=== PATIENT | male | born 1940 | race Caucasian/White ===

== ENCOUNTER → 2019-08-23 09:58 | Outpatient (CLI) | payer MEDICARE, SELFPAY ==
--- NOTE | ~2019-08-23 | XR_ITS ---
EXAMINATION: XR chest 2V 08/23/2019 10:41 INDICATION: Cough PROCEDURE: 2 view chest COMPARISON: No prior studies for comparison. FINDINGS: The lungs are clear. The cardiomediastinal silhouette is within normal limits. There are no pleural effusions. There is no pneumothorax suspected. IMPRESSION: 1: NO ACUTE CARDIOPULMONARY DISEASE. Reviewed, dictated and finalized at location B. OMS EXAMINER
== END ==
PROVIDERS: PCP Family Medicine; Visit Provider Physician Assistant
DX: R05 Cough (principal)
CPT/HCPCS: 71046

== ENCOUNTER 2019-12-09 11:56 | Outpatient (CLI) | payer MEDICARE, SELFPAY ==
[2019-12-09 12:25] LABS: Add Urine Microscopic? NO; Appearance Urine Clear (Clear); Bilirubin Urine Negative (Negative); Blood Urine Negative (Negative); Color Urine Yellow (Yellow); Glucose Urine UA Negative (Negative); Ketones Urine Negative (Negative); Leukocyte Esterase Ur Negative LEU/UL (NEGATIVE); Nitrate Urine Negative (Negative); Protein Urine Negative (Negative); Specific Grav Ur 1.014 (1.001-1.035); Urobilinogen Urine Negative mg/dL (<2.0)
[2019-12-09 12:33] LABS: Hemoglobin A1C 5.7 % (<5.7)
[2019-12-09 12:37] LABS: Alanine Aminotransferase 28 U/L (4-50); Albumin Level 4.1 g/dL (3.5-5.1); Alkaline Phosphatase 46 U/L (38-126); Aspartate Amino Transferase 34 U/L (17-59); Bilirubin,Total 2.1 mg/dL (0.2-1.3); Blood Urea Nitrogen 18 mg/dL (9-20); Calcium 9.2 mg/dL (8.4-10.2); Carbon Dioxide 27 mmol/L (22-30); Chloride 106 mmol/L (98-107); Cholesterol 117 mg/dL (0-200); Estimated Glomerular Filt Rate > 60; Glucose 101 mg/dL (75-110); HDL Direct 25 mg/dL; Potassium 4.4 mmol/L (3.4-5.0); Sodium 138 mmol/L (137-145); Triglycerides 352 mg/dL (<150)
[2019-12-09 12:48] LABS: LDL Cholesterol Direct 57 mg/dL
== END 2019-12-09 11:57 | disposition home or self-care (01) ==
PROVIDERS: PCP Family Medicine; Visit Provider Physician Assistant
DX: E78.2 Mixed hyperlipidemia (principal); R73.01 Impaired fasting glucose; I10 Essential (primary) hypertension
CPT/HCPCS: 36415; 80053; 80061; 81003; 83036

== ENCOUNTER 2020-06-15 13:49 | Outpatient (CLI) | payer MEDICARE, SELFPAY ==
[2020-06-15 14:53] LABS: Alanine Aminotransferase 24 U/L (4-50); Albumin Level 3.8 g/dL (3.5-5.1); Alkaline Phosphatase 49 U/L (38-126); Anion Gap 8 mmol/L (8-16); Aspartate Amino Transferase 32 U/L (17-59); Bilirubin,Total 1.7 mg/dL (0.2-1.3); Blood Urea Nitrogen 18 mg/dL (9-20); Calcium 9.1 mg/dL (8.4-10.2); Carbon Dioxide 23 mmol/L (22-30); Chloride 106 mmol/L (98-107); Estimated Glomerular Filt Rate > 60; Glucose 101 mg/dL (75-110); Potassium 4.1 mmol/L (3.4-5.0); Sodium 137 mmol/L (137-145)
[2020-06-15 15:06] LABS: Hemoglobin A1C 5.4 % (<5.7)
== END 2020-06-15 13:50 | disposition home or self-care (01) ==
PROVIDERS: PCP Family Medicine; Visit Provider Family Medicine
DX: E11.9 Type 2 diabetes mellitus without complications (principal); I10 Essential (primary) hypertension
CPT/HCPCS: 36415; 80053; 83036

== ENCOUNTER 2020-12-10 07:09 | Outpatient (CLI) | payer MEDICARE, SELFPAY ==
[2020-12-10 07:48] LABS: Hematocrit 37.7 % (42.0-52.0); Hemoglobin 12.8 g/dL (14.0-18.0); Mean Corpuscular Hemoglobin 32.7 pg (26-34); Mean Corpuscular Volume 96.4 fl (80-100); Mean Platelet Volume 11.4 fl (7.4-10.4); Platelet Count Result 288 k/mm3 (150-375); Red Blood Count 3.91 M/mm3 (4.6-6.20); Red Cell Distribution Width 14.7 % (11.5-14.5); White Blood Count 8.9 K/mm3 (4.5-10.0)
[2020-12-10 07:51] LABS: Add Urine Microscopic? NO; Appearance Urine Clear (Clear); Bilirubin Urine Negative (Negative); Blood Urine Negative (Negative); Color Urine Yellow (Yellow); Glucose Urine UA Negative (Negative); Ketones Urine Negative (Negative); Leukocyte Esterase Ur Negative LEU/UL (NEGATIVE); Nitrate Urine Negative (Negative); Protein Urine Negative (Negative); Specific Grav Ur 1.016 (1.001-1.035); Urobilinogen Urine Negative mg/dL (<2.0)
[2020-12-10 08:02] LABS: Alanine Aminotransferase 25 U/L (4-50); Albumin Level 4.3 g/dL (3.5-5.1); Alkaline Phosphatase 44 U/L (38-126); Anion Gap 8 mmol/L (8-16); Aspartate Amino Transferase 34 U/L (17-59); Bilirubin,Total 2.3 mg/dL (0.2-1.3); Blood Urea Nitrogen 16 mg/dL (9-20); Calcium 9.6 mg/dL (8.4-10.2); Carbon Dioxide 22 mmol/L (22-30); Chloride 109 mmol/L (98-107); Cholesterol 135 mg/dL (0-200); Estimated Glomerular Filt Rate > 60; Glucose 106 mg/dL (75-110); HDL Direct 35 mg/dL; Potassium 4.7 mmol/L (3.4-5.0); Sodium 139 mmol/L (137-145); Triglycerides 105 mg/dL (<150)
[2020-12-10 08:04] LABS: Hemoglobin A1C 5.3 % (<5.7)
[2020-12-10 08:15] LABS: LDL Cholesterol Direct 65 mg/dL
== END 2020-12-10 07:10 | disposition home or self-care (01) ==
PROVIDERS: PCP Family Medicine; Visit Provider Family Medicine
DX: R73.01 Impaired fasting glucose (principal); E78.2 Mixed hyperlipidemia; R53.83 Other fatigue; Z00.00 Encounter for general adult medical examination without abnormal findings; I10 Essential (primary) hypertension
CPT/HCPCS: 36415; 80053; 80061; 81003; 83036; 84443; 85027

== ENCOUNTER 2020-12-11 10:12 | Outpatient (CLI) | payer MEDICARE, SELFPAY ==
[2020-12-11 11:55] LABS: Iron 98 ug/dL (49-181)
[2020-12-11 12:05] LABS: Percent Iron Saturation 32 % (20-50)
== END 2020-12-11 10:13 | disposition home or self-care (01) ==
LOC: ANHLAB 10:17
PROVIDERS: PCP Family Medicine; Visit Provider Family Medicine
DX: D64.9 Anemia, unspecified (principal)
CPT/HCPCS: 36415; 82728; 83540; 83550

== ENCOUNTER 2021-11-30 07:03 | Outpatient (CLI) | payer MEDICARE, SELFPAY ==
[2021-11-30 07:37] LABS: Hemoglobin 13.9 g/dL (14.0-18.0); Mean Corpuscular HGB Conc 33.9 g/dl (32-36); Mean Corpuscular Hemoglobin 33.1 pg (26-34); Mean Corpuscular Volume 97.6 fl (80-100); Mean Platelet Volume 11.3 fl (7.4-10.4); Platelet Count Result 211 k/mm3 (150-375); Red Cell Distribution Width 15.2 % (11.5-14.5)
[2021-11-30 07:45] LABS: Hemoglobin A1C 5.4 % (<5.7)
[2021-11-30 07:52] LABS: Alanine Aminotransferase 33 U/L (6-50); Albumin Level 4.5 g/dL (3.5-5.1); Alkaline Phosphatase 44 U/L (38-126); Anion Gap 8 mmol/L (8-16); Aspartate Amino Transferase 33 U/L (17-59); Bilirubin,Total 3.7 mg/dL (0.2-1.3); Blood Urea Nitrogen 19 mg/dL (9-20); Carbon Dioxide 22 mmol/L (22-30); Chloride 109 mmol/L (98-107); Cholesterol 141 mg/dL (0-200); Estimated Glomerular Filt Rate > 60; Glucose 107 mg/dL (65-110); HDL Direct 31 mg/dL; Potassium 4.5 mmol/L (3.4-5.0); Sodium 139 mmol/L (137-145); Triglycerides 190 mg/dL (<150)
[2021-11-30 08:00] LABS: Add Urine Microscopic? NO; Appearance Urine Clear (Clear); Bilirubin Urine Negative (Negative); Blood Urine Negative (Negative); Color Urine Yellow (Yellow); Glucose Urine UA Negative (Negative); Ketones Urine Negative (Negative); Leukocyte Esterase Ur Negative LEU/UL (Negative); Nitrate Urine Negative (Negative); Protein Urine Negative (Negative); Specific Grav Ur >= 1.030 (1.001-1.035); Urobilinogen Urine 0.2 mg/dL (<2.0); pH Urine 5.5 (5.0-9.0)
[2021-11-30 08:03] LABS: LDL Cholesterol Direct 67 mg/dL
[2021-11-30 08:22] LABS: Prostate Specific Antigen 4.5 ng/mL (< OR = 4.0)
== END 2021-11-30 07:04 | disposition home or self-care (01) ==
LOC: ANHLAB 07:06
PROVIDERS: PCP Family Medicine; Visit Provider Physician Assistant
DX: E78.2 Mixed hyperlipidemia (principal); I10 Essential (primary) hypertension; R73.01 Impaired fasting glucose; N39.43 Post-void dribbling; R33.9 Retention of urine, unspecified
CPT/HCPCS: 36415; 80053; 80061; 81003; 83036; 84153; 84443; 85027

== ENCOUNTER 2021-12-16 08:10 | Outpatient (CLI) | payer MEDICARE, SELFPAY ==
--- NOTE | ~2021-12-16 | XR_ITS ---
XR lumbar spine min 4V DATE: 12/16/2021 08:46 INDICATION: Back pain, greater on the right TECHNIQUE: AP, lateral, bilateral oblique views, coned lateral lumbosacral view COMPARISON: None FINDINGS: There is osteopenia. Status post L3 and L4 laminectomy. There is levoscoliosis of the lumbar spine. There is prominent degenerative change at the apophyseal joints of the lumbar spine with associated m ild grade 1 anterolisthesis at L4-5 and L5-S1. There is degenerative disc disease throughout the lumbar spine, severe at L1 to, moderately prominent L3-4 and L4-5 and severe at L5-S1. There appears to be fusion at the L2-3 intervertebral disc space. 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 The sacroiliac joints are intact. IMPRESSION: Osteopenia Moderate levoscoliosis of the lumbar spine Status post L3 and L4 laminectomy Prominent degenerative change at the apophyseal joints with associated grade 1 anterolisthesis at L4- 5 and L5-S1 Moderately severe to severe degenerative disease of the lumbar and lumbosacral spine Fusion of the L2-3 intervertebral disc space Reviewed, dictated and finalized at location B. IMPRESSION: Osteopenia Moderate levoscoliosis of the lumbar spine Status post L3 and L4 laminectomy Prominent degenerative change at the apophyseal joints with associated grade 1 anterolisthesis at L4-5 and L5-S1 Moderately severe to severe degenerative disease of the lumbar and lumbosacral spine Fusion of the L2-3 intervertebral disc space
== END 2021-12-16 08:11 | disposition home or self-care (01) ==
PROVIDERS: PCP Family Medicine; Visit Provider Physician Assistant
DX: M47.816 Spondylosis without myelopathy or radiculopathy, lumbar region (principal); M41.9 Scoliosis, unspecified; M85.88 Other specified disorders of bone density and structure, other site; M47.817 Spondylosis without myelopathy or radiculopathy, lumbosacral region
CPT/HCPCS: 72110

== ENCOUNTER 2021-12-23 06:43 | Outpatient (CLI) | payer MEDICARE, SELFPAY ==
--- NOTE | ~2021-12-23 | MR_ITS ---
EXAMINATION: MR lumbar spine wo con DATE: 12/23/2021 07:16 INDICATION: Lumbar facet osteoarthritis presenting with lower back pain TECHNIQUE: Magnetic resonance imaging (MRI) of the lumbar spine was performed without intravenous con trast. Sequences included sagittal T2-weighted FSE, sagittal T2-weighted FS FSE, sagittal T1-weighted FSE, and axial T2-weighted FSE. COMPARISON: None FINDINGS: 25 degrees lumbar levoscoliosis. 3 mm retrolisthesis L1 on L2. There is anterior fusion at L2-L3 with approximately 30% right-sided loss of the combined L2-L3 vertebral body height relative to the left side. There is also fusion across the right L2-L3 facet joints. There is also a chronic T12 compressi on fracture with 20% left-sided vertebral body height loss. Postoperative change of prior L2-L4 nina ectomies. Mild fibrovascular and fibrofatty degenerative endplate changes at a few levels. Marrow sig nal is otherwise normal. Severe disc height loss at L5-S1. Moderate right-sided predominant disc heig ht loss at L1-L2 and moderate left-sided predominant disc height loss at L4-L5. Mild disc height loss at L3-L4. The conus medullaris terminates at L2-L3. There is normal signal in the caudal spinal cord . Ankylosis across the bilateral sacroiliac joints. Postoperative scarring in the posterior paraspina l musculature of the mid to lower lumbar spine. The following disc levels are specifically discussed: T12-L1: Annular fissure and small central disc protrusion. There is moderate bilateral facet joint os teoarthritis. There is mild left neural foraminal stenosis. There is normal central canal stenosis. L1-L2: Annular fissure and disc extrusion extending from foraminal zone to foraminal zone with disc m aterial extending up to 5 mm cephalad and caudal to the level of the endplates. There is hypertrophy of the ligamentum flavum. There is mild to moderate left and severe right facet joint osteoarthritis. There is moderate to severe left and severe right neural foraminal stenosis. There is severe central canal stenosis. L2-L3: Moderate hypertrophic change along the level of the fused disc space. There is fusion with pro minent hypertrophic change at the right facet joint. Mild hypertrophic change at the left facet joint with appearance suggestive but not definitive for additional fusion. There is moderate left and mode rate to severe right neural foraminal stenosis. There is no central canal stenosis with posterior dec ompression. There is however mild central canal stenosis at the level of the midportion of the L3 holger tebral body. L3-L4: Annular fissure and disc extrusion extending from foraminal zone to foraminal zone with disc m aterial extending couple millimeters cephalad and caudal to the level of the endplates. There is dov re bilateral facet osteoarthritis with more prominent hypertrophic change on the right. There is dov re bilateral neural foraminal stenosis. There is mild central canal stenosis with posterior decompres taty. L4-L5: Disc is bulging with superimposed annular fissure and small central disc extrusion with disc m aterial extending up to 1.3 similar cephalad to the level of the inferior endplate of L4. There is se asif bilateral facet joint osteoarthritis. There is moderate bilateral neural foraminal stenosis. The re is no central canal stenosis at the level of the disc space but mild central canal stenosis at the level of the midportion of the L4 vertebral body. L5-S1: Annular fissure and disc extrusion greatest in the central zone with disc material extending u p to 5 mm cephalad to the level of the inferior endplate of L5. There is severe bilateral facet joint osteoarthritis. There is moderate right and severe left neural foraminal stenosis. There is mild yuliana tral canal stenosis. IMPRESSION: 1. 25 degrees lumbar levoscoliosis with multilevel severe spondylosis stable for severe centra
== END 2021-12-23 06:44 | disposition home or self-care (01) ==
PROVIDERS: PCP Family Medicine; Visit Provider Physician Assistant
DX: M47.816 Spondylosis without myelopathy or radiculopathy, lumbar region (principal); Z98.1 Arthrodesis status
CPT/HCPCS: 72148

== ENCOUNTER 2022-03-04 08:16 | Emergency (ER) | payer MEDICARE, SELFPAY ==
[2022-03-04 08:29] VITALS: BP 138/50; PULSE 64; RESP 16; TEMP 35.8; O2SAT 99
--- NOTE | 2022-03-04 08:45 | ED.EXTPRO ---
HPI - Extremity Problem General Chief complaint: Extremity Problem,Nontraumatic Stated complaint: left ankle pain Time Seen by Provider: 03/04/22 08:57 Source: patient and RN notes reviewed Mode of arrival: ambulatory Limitations: no limitations History of Present Illness HPI Narrative: 82-year-old male presents concern for dorsal left foot and ankle pain. He reports a cramping sensation where the ankle meets the foot. He reports it started approximately 2 days ago. He denies any injury or trauma. He denies redness, swelling, warmth. He reports it is very certain position the pain is relieved, but when he dorsiflexes or plantar flexes the foot it causes pain. He denies rash or open skin. He reports it is very superficially sensitive to touch. MD Complaint: extremity pain Related Data Home Medications Medication Instructions Recorded Confirmed aspirin 81 mg tablet,delayed 81 mg PO DAILY 08/23/19 03/04/22 release (Adult Low Dose Aspirin) chlorzoxazone 500 mg tablet 500 mg PO DAILY 03/04/22 03/04/22 Allergies Allergy/AdvReac Type Severity Reaction Status Date / Time No Known Allergies Allergy Mild Verified 11/29/21 08:57 Review of Systems Review of Systems: CONSTITUTIONAL: Denies malaise, chills, sweats, or fever. CARDIOVASCULAR: Denies chest pain, palpitations, or edema. RESPIRATORY: Denies cough or dyspnea. SKIN: Denies rash or itching, bruising, redness, swelling. MUSCULOSKELETAL: Reports left foot pain NEUROLOGIC: Denies numbness, weakness All systems reviewed & are unremarkable except as noted in HPI and below PMFSH Past Medical History Medical History Essential hypertension IFG (impaired fasting glucose) Mixed hyperlipidemia Wellness examination Family History Family History Mother Family history of malignant neoplasm of stomach Family history of heart disease in male family member before age 55 Father Family history of lung cancer Social History Social History Smoking status: Never smoker Second hand tobacco smoke exposure: No Alcohol intake: current Drinks per week: 2 Substance use: never Substance use type: does not use Gender identity (if verbalized by the patient): Male Sexual Orientation (if Verbalized by the Patient): Straight or Heterosexual Comments At time of signature, agree with nursing past medical, surgical, social and family history. There is no relevant family history pertinent to the presenting complaint Exam Narrative: GENERAL: Well-appearing, well-nourished, and in no acute distress. HEAD: Normocephalic, atraumatic. EYES: PERRLA, conjunctivae clear NECK: Supple. CHEST: Speaks in full sentences. No respiratory distress. HEART: Regular rate and rhythm. Normal and equal peripheral pulses. EXTREMITIES: Left foot, ankle, digits have normal strength and sensation, grossly normal range of motion. No edema or ecchymosis. 5/5 strength with ankle and digit flexion and extension. Increased sensation and tenderness to light touch to the dorsal foot at the base of the ankle and pain. No open wounds, no skin tenting, no devitalized tissue or atrophy, no trophic changes, no obvious deformity, alignment normal, nearby joints and structures intact. Distal pulses palpable and equal bilaterally, skin warm, dry, pink. Capillary refill less than 3 seconds. SKIN: Warm, dry, no rash. NEURO: Alert and oriented x3. PSYCH: Normal mood and affect Course Course Emergency Course: Pain appears to be very superficial, no skeletal pain suspected. There is no redness, warmth. Very sensitive to light touch to the dorsal foot. Advised patient to rest, ice, use diclofenac cream and follow-up with podiatry. Patient is aware of diagnosis, understands and agrees to treatment plan. Anticipatory guidance given. Patient agrees to foll
== END 2022-03-04 09:17 | disposition home or self-care (01) ==
PROVIDERS: Emergency Provider Nurse Practitioner; PCP Family Medicine
DX: M79.672 Pain in left foot (principal); I10 Essential (primary) hypertension; E78.2 Mixed hyperlipidemia; R73.01 Impaired fasting glucose
CPT/HCPCS: 99213; G0463

== ENCOUNTER 2022-06-06 09:18 | Outpatient (CLI) | payer MEDICARE, SELFPAY ==
[2022-06-06 10:08] LABS: Alanine Aminotransferase 37 U/L (6-50); Albumin Level 4.3 g/dL (3.5-5.1); Alkaline Phosphatase 43 U/L (38-126); Anion Gap 7 mmol/L (8-16); Aspartate Amino Transferase 40 U/L (17-59); Bilirubin,Total 2.5 mg/dL (0.2-1.3); Blood Urea Nitrogen 17 mg/dL (9-20); Calcium 9.1 mg/dL (8.4-10.2); Carbon Dioxide 25 mmol/L (22-30); Chloride 107 mmol/L (98-107); Estimated Glomerular Filt Rate > 60; Glucose 87 mg/dL (65-110); Potassium 4.7 mmol/L (3.4-5.0); Sodium 139 mmol/L (137-145)
[2022-06-06 10:20] LABS: Hemoglobin A1C 5.6 % (<5.7)
[2022-06-06 10:36] LABS: Prostate Specific Antigen 4.8 ng/mL (< OR = 4.0)
== END 2022-06-06 09:19 | disposition home or self-care (01) ==
LOC: ANHLAB 09:20
PROVIDERS: PCP Family Medicine; Visit Provider Family Medicine
DX: R97.20 Elevated prostate specific antigen [PSA] (principal); R73.01 Impaired fasting glucose; I10 Essential (primary) hypertension
CPT/HCPCS: 36415; 80053; 83036; 84153

== ENCOUNTER 2022-12-09 07:14 | Outpatient (CLI) | payer MEDICARE, SELFPAY ==
[2022-12-09 07:51] LABS: Hematocrit 38.1 % (42.0-52.0); Mean Corpuscular HGB Conc 34.1 g/dl (32-36); Mean Corpuscular Hemoglobin 33.2 pg (26-34); Mean Corpuscular Volume 97.4 fl (80-100); Mean Platelet Volume 11.7 fl (7.4-10.4); Platelet Count Result 220 k/mm3 (150-375); Red Blood Count 3.91 M/mm3 (4.6-6.20); Red Cell Distribution Width 15.3 % (11.5-14.5); White Blood Count 10.9 K/mm3 (4.5-10.0)
[2022-12-09 07:56] LABS: Appearance Urine Clear (Clear); Bacteria Urine None Seen /hpf; Bilirubin Urine Negative (Negative); Blood Urine Negative (Negative); Color Urine Dark Yellow (Yellow); Glucose Urine UA Negative (Negative); Ketones Urine Trace mg/dL (Negative); Leukocyte Esterase Ur Trace LEU/UL (NEGATIVE); Nitrate Urine Negative (Negative); Non Pathogenic Casts 0-2; Protein Urine Trace mg/dL (Negative); RBC Urine 0-2 /hpf (0-2); Specific Grav Ur 1.025 (1.001-1.035); Squamous Epithelial Cell Urine None seen /hpf (Few); WBC Urine 0-5 /hpf (0-3)
[2022-12-09 07:59] LABS: Add Urine Microscopic? YES
[2022-12-09 08:30] LABS: Alanine Aminotransferase 30 U/L (6-50); Albumin Level 4.6 g/dL (3.5-5.1); Alkaline Phosphatase 52 U/L (38-126); Anion Gap 6 mmol/L (8-16); Aspartate Amino Transferase 37 U/L (17-59); Bilirubin,Total 5.8 mg/dL (0.2-1.3); Blood Urea Nitrogen 21 mg/dL (9-20); Calcium 9.1 mg/dL (8.4-10.2); Carbon Dioxide 26 mmol/L (22-30); Chloride 105 mmol/L (98-107); Cholesterol 129 mg/dL (0-200); Estimated Glomerular Filt Rate > 60; Glucose 111 mg/dL (65-110); HDL Direct 33 mg/dL; Potassium 4.4 mmol/L (3.4-5.0); Sodium 137 mmol/L (137-145); Triglycerides 127 mg/dL (<150)
[2022-12-09 08:41] LABS: LDL Cholesterol Direct 66 mg/dL
[2022-12-09 09:11] LABS: Hemoglobin A1C 5.3 % (<5.7)
== END 2022-12-09 07:15 | disposition home or self-care (01) ==
PROVIDERS: PCP Family Medicine; Visit Provider Family Medicine
DX: R73.01 Impaired fasting glucose (principal); I10 Essential (primary) hypertension
CPT/HCPCS: 36415; 80053; 80061; 81001; 83036; 84443; 85027

== ENCOUNTER 2023-01-06 07:00 | Outpatient (CLI) | payer MEDICARE, SELFPAY ==
[2023-01-06 08:37] LABS: Alanine Aminotransferase 31 U/L (6-50); Albumin Level 4.1 g/dL (3.5-5.1); Alkaline Phosphatase 41 U/L (38-126); Aspartate Amino Transferase 36 U/L (17-59); Bilirubin,Total 2.7 mg/dL (0.2-1.3)
== END 2023-01-06 07:01 | disposition home or self-care (01) ==
PROVIDERS: PCP Family Medicine; Visit Provider Family Medicine
DX: R17 Unspecified jaundice (principal)
CPT/HCPCS: 36415; 80076

== ENCOUNTER 2023-02-22 06:42 | Outpatient (CLI) | payer MEDICARE, SELFPAY ==
--- NOTE | ~2023-02-22 | MR_ITS ---
EXAMINATION: MR lumbar spine wo con DATE: 02/22/2023 07:32 INDICATION: Radiculopathy, lumbar region. Right-sided buttock pain. TECHNIQUE: Magnetic resonance imaging (MRI) of the lumbar spine was performed without intravenous con trast. Sequences included sagittal T2-weighted FSE, sagittal T2-weighted FS FSE, sagittal T1-weighted FSE, and axial T2-weighted FSE. COMPARISON: Lumbar spine MRI 12/23/2021 FINDINGS: There is 32 degrees levoscoliosis of lumbar spine. There is 4 mm retrolisthesis of L1 on L2 and 3 mm anterolisthesis of L5 on S1. There is a chronic compression fracture of T12 with 1/5 loss o f height. There is severely decreased disc height at L1-L2. There is interbody fusion at L2-L3. There is mildly decreased disc height at L3-L4 and severely decreased disc height at L4-L5 and L5-S1. The distal spinal cord signal intensity is normal. The conus medullaris is at L1-L2. The following disc l evels are specifically discussed: L1-L2: The disc is bulging with superimposed central extrusion. There is severe right and moderate le ft facet joint osteoarthritis. There is severe right and moderate left neural foraminal stenosis. The re is severe central canal stenosis. L2-L3: There is ankylosis of the facet joints with moderate right and mild left hypertrophy. There is moderate right and mild left neural foraminal stenosis. There is mild central canal stenosis with po sterior decompression. L3-L4: The disc is bulging and has an annular fissure. There is severe bilateral facet joint osteoart hritis. There is severe bilateral neural foraminal stenosis. There is mild central canal stenosis. L4-L5: The disc is bulging with superimposed central extrusion. There is severe bilateral facet joint osteoarthritis. There is moderate right and mild left neural foraminal stenosis. There is mild centr al canal stenosis with posterior decompression. L5-S1: The disc is bulging. There is severe bilateral facet joint osteoarthritis. There is mild right and moderate left neural foraminal stenosis. There is mild central canal stenosis. IMPRESSION: 1. Severe lumbar spondylosis, stable from 12/23/2021. 2. Lumbar levoscoliosis. Reviewed, dictated and finalized at location A.
== END 2023-02-22 06:43 | disposition home or self-care (01) ==
PROVIDERS: PCP Family Medicine; Visit Provider Family Medicine
DX: M43.06 Spondylolysis, lumbar region (principal); M41.86 Other forms of scoliosis, lumbar region
CPT/HCPCS: 72148

== ENCOUNTER 2023-06-20 10:58 | Outpatient (CLI) | payer MEDICARE, SELFPAY ==
--- NOTE | ~2023-06-20 | XR_ITS ---
EXAM: XR abdomen/kub 1V DATE: 06/20/2023 11:29 HISTORY: SEVERE CRAMPING, PAIN, CONSTIPATION . COMPARISON: X-ray pelvis 05/01/2013 x-ray lumbar spine 12/16/2021. FINDINGS: Clear lung bases. Normal bowel gas pattern. No organomegaly. Teardrop shaped 4.6 cm calcif ication projecting over the right lower abdomen, outside of the expected location of the renal collec ting system. Lumbar scoliosis with degenerative disc disease. Bilateral hip osteoarthritis. Pelvic ph leboliths. IMPRESSION: No radiographic evidence of obstruction or ileus. Corticated ossific fragment lateral and superior to the right hip, possible trochanteric avulsion. Co rrelate with history of trauma and hip pain. 4.6 cm calcification over the right lower abdomen of uncertain etiology or clinical significance. Pos sible soft tissue calcification versus intraluminal bowel content. Consider CT of the abdomen and pelvis for further evaluation. Reviewed, dictated and finalized at location K. OPEDIC DENTIST IMPRESSION: No radiographic evidence of obstruction or ileus. Corticated ossific fragment lateral and superior to the right hip, possible tro chanteric avulsion. Correlate with history of trauma and hip pain. 4.6 cm calcification over the right lower abdomen of uncertain etiology or clin ical significance. Possible soft tissue calcification versus intraluminal bowel content. Consider CT of the abdomen and pelvis for further evaluation.
[2023-06-20 11:32] LABS: Appearance Urine Clear (Clear); Bilirubin Urine 1+ (Negative); Blood Urine Negative (Negative); Color Urine Dark Yellow (Yellow); Glucose Urine UA Negative (Negative); Ketones Urine Trace mg/dL (Negative); Leukocyte Esterase Ur Negative LEU/UL (Negative); Nitrate Urine Negative (Negative); Protein Urine Negative (Negative); Specific Grav Ur 1.024 (1.001-1.035); pH Urine 5.5 (5.0-9.0)
[2023-06-20 11:33] LABS: Add Urine Microscopic? NO
[2023-06-20 11:36] LABS: Basophils Absolute Auto 0.1 K/mm3 (0.0-0.1); Basophils Percent Auto 0.5 % (0.2-1.2); Eosinophils Absolute Auto 0.8 K/mm3 (0-0.3); Eosinophils Percent Auto 7.8 % (0-4.4); Hematocrit 39.3 % (42.0-52.0); Immature Granulocyte Absolute 0.09 K/mm3 (0.00-0.031); Immature Granulocyte Percent A 0.8 % (0-0.5); Lymphocytes Absolute Auto 2.52 K/mm3 (0.9-3.2); Lymphocytes Percent Auto 23.6 % (18.3-44.2); Mean Corpuscular HGB Conc 33.1 g/dl (32-36); Mean Corpuscular Hemoglobin 31.9 pg (26-34); Mean Corpuscular Volume 96.6 fl (80-100); Mean Platelet Volume 11.2 fl (7.4-10.4); Monocytes Percent Auto 9.7 % (2.6-8.5); Neutrophils Absolute Auto 6.2 K/mm3 (1.3-6.7); Neutrophils Percent Auto 57.6 % (45.5-73.1); Platelet Count Result 296 k/mm3 (150-375); Red Blood Count 4.07 M/mm3 (4.6-6.20); Red Cell Distribution Width 15.9 % (11.5-14.5); White Blood Count 10.7 K/mm3 (4.5-10.0)
[2023-06-20 11:45] LABS: Alanine Aminotransferase 20 U/L (6-50); Albumin Level 3.9 g/dL (3.5-5.1); Alkaline Phosphatase 46 U/L (38-126); Amylase 62 U/L (30-110); Anion Gap 9 mmol/L (8-16); Aspartate Amino Transferase 32 U/L (17-59); Bilirubin,Total 4.2 mg/dL (0.2-1.3); Blood Urea Nitrogen 19 mg/dL (9-20); Calcium 8.9 mg/dL (8.4-10.2); Carbon Dioxide 24 mmol/L (22-30); Chloride 103 mmol/L (98-107); Estimated Glomerular Filt Rate > 60; Glucose 89 mg/dL (65-110); Lipase 59 U/L (23-300); Potassium 4.4 mmol/L (3.4-5.0); Sodium 136 mmol/L (137-145)
== END 2023-06-20 10:59 | disposition home or self-care (01) ==
PROVIDERS: PCP Family Medicine; Visit Provider Family Medicine
DX: N39.0 Urinary tract infection, site not specified (principal); M61.451 Other calcification of muscle, right thigh; I10 Essential (primary) hypertension
CPT/HCPCS: 36415; 74018; 80053; 81003; 82150; 83690; 85025

== ENCOUNTER 2023-07-03 14:28 | Outpatient (CLI) | payer MEDICARE, SELFPAY ==
--- NOTE | ~2023-07-03 | CT_ITS ---
EXAMINATION: CT abdomen pelvis wo con DATE: 07/03/2023 14:56 INDICATION: Right lower quadrant abdominal pain. Frequent urination. TECHNIQUE: Computed tomography (CT) of the abdomen and pelvis was performed without intravenous contr ast. Automated exposure control and iterative reconstruction technique were employed. Exam dose: 499 .57 mGy-cm total exam DLP. COMPARISON: None. FINDINGS: There is minimal bilateral dependent lower lobe atelectasis. Normal heart size. No pericardial or pleural effusion. The liver, gallbladder, bile ducts, pancreas, pancreatic duct, spleen, adrenal glands are unremarkabl e. No renal mass lesion or urinary tract calculus or hydroureteronephrosis. There is prostate enlargement. The urinary bladder has diffuse mild bladder wall thickening, likely d ue to the prostatomegaly. There is some prostate calcification. There is atherosclerotic calcification of the abdominal aorta and calcification at the origins of the celiac, superior mesenteric and renal arteries. No abdominal aortic aneurysm. No intraperitoneal or retroperitoneal or pelvic mass lesion or adenopathy or ascites is detected. No evidence of appendicitis. There is a prominent amount of fecal material in the colon but no bowel obstruction, bowel wall thickening, pneumatosis or intraperitoneal free air is noted. There is fusion at L2-3 vertebral bodies. There is severe degenerative disc disease at L1-2, moderate degenerative disease at L3-4 and severe degenerative disease at L4-5 and L5-S1. There is severe dege nerative change at the apophyseal joints of the lumbar spine. There is mild anterior wedging and prominent cupping of the superior vertebral endplate of T12 consis tent with old compression fracture. There is diffuse idiopathic skeletal hyperostosis of the thoracic spine. IMPRESSION: No evidence of appendicitis Prominent amount of fecal material in the colon; no bowel obstruction Prostate enlargement Extensive degenerative changes of the thoracic and lumbar spine Mild likely chronic compression fracture deformity of T12 Reviewed, dictated and finalized at Location A. Reviewed, dictated and finalized at location B. OARD SPECIALIST
== END 2023-07-03 14:29 | disposition home or self-care (01) ==
PROVIDERS: PCP Family Medicine; Visit Provider Family Medicine
DX: N40.0 Benign prostatic hyperplasia without lower urinary tract symptoms (principal); M47.894 Other spondylosis, thoracic region; M47.896 Other spondylosis, lumbar region
CPT/HCPCS: 74176

== ENCOUNTER 2023-07-19 07:30 | Outpatient (CLI) | payer MEDICARE, SELFPAY ==
--- NOTE | ~2023-07-19 | MR_ITS ---
MRI of the thoracic spine Clinical History: Radiculopathy Technique: Axial T2-weighted and gradient images, and sagittal T1-weighted, T2-weighted, and STIR tamar ges were acquired. Findings: There is no fracture or sublocation of the thoracic spine. Vertebral bodies maintain normal height and alignment. No suspicious bone marrow signal abnormality seen. No significant disc bulge or herniation identified. There is facet arthropathy resulting in minimal c anal stenosis at the T11-T12 level. No other canal stenosis or cord compression. Paravertebral soft tissues are unremarkable. Impression: Facet arthropathy at T11-T12, resulting in minimal canal stenosis. Reviewed, dictated and finalized at location . MANAGERS Impression: Facet arthropathy at T11-T12, resulting in minimal canal stenosis.
== END 2023-07-19 07:31 | disposition home or self-care (01) ==
PROVIDERS: PCP Family Medicine; Visit Provider Nurse Practitioner Family
DX: M47.814 Spondylosis without myelopathy or radiculopathy, thoracic region (principal)
CPT/HCPCS: 72146

== ENCOUNTER 2023-09-19 12:05 | Outpatient (CLI) | payer MEDICARE, SELFPAY ==
--- NOTE | 2023-09-19 | ECG_ITS ---
Measurements Intervals [place] Rate: 55 P: 57 RI: 153 QRS: 0 QRSD: 102 T: 9 QT: 387 QTc: 373 Interpretive Statements SINUS BRADYCARDIA NO PREVIOUS ECG AVAILABLE FOR COMPARISON Electronically Signed On 09-19-2023 14:53:49 CDT by Isaias Woods M.D.
[2023-09-19 12:35] LABS: Basophils Absolute Auto 0.1 K/mm3 (0.0-0.1); Basophils Percent Auto 0.6 % (0.2-1.2); Eosinophils Absolute Auto 0.3 K/mm3 (0-0.3); Eosinophils Percent Auto 3.2 % (0-4.4); Hematocrit 36.7 % (42.0-52.0); Hemoglobin 12.3 g/dL (14.0-18.0); Immature Granulocyte Absolute 0.07 K/mm3 (0.00-0.031); Immature Granulocyte Percent A 0.8 % (0-0.5); Lymphocytes Absolute Auto 2.46 K/mm3 (0.9-3.2); Lymphocytes Percent Auto 27.5 % (18.3-44.2); Mean Corpuscular HGB Conc 33.5 g/dl (32-36); Mean Corpuscular Hemoglobin 31.8 pg (26-34); Mean Corpuscular Volume 94.8 fl (80-100); Mean Platelet Volume 11.3 fl (7.4-10.4); Monocytes Absolute Auto 0.9 K/mm3 (0.1-0.6); Monocytes Percent Auto 10.4 % (2.6-8.5); Neutrophils Absolute Auto 5.1 K/mm3 (1.3-6.7); Neutrophils Percent Auto 57.5 % (45.5-73.1); Platelet Count Result 253 k/mm3 (150-375); Red Blood Count 3.87 M/mm3 (4.6-6.20); Red Cell Distribution Width 16.5 % (11.5-14.5); White Blood Count 8.9 K/mm3 (4.5-10.0)
[2023-09-19 12:44] LABS: Appearance Urine Clear (Clear); Bilirubin Urine Negative (Negative); Blood Urine Negative (Negative); Color Urine Yellow (Yellow); Glucose Urine UA Negative (Negative); Ketones Urine Negative (Negative); Leukocyte Esterase Ur Negative LEU/UL (Negative); Nitrate Urine Negative (Negative); Protein Urine Negative (Negative)
[2023-09-19 12:47] LABS: Alanine Aminotransferase 16 U/L (6-50); Alkaline Phosphatase 46 U/L (38-126); Anion Gap 6 mmol/L (4-12); Aspartate Amino Transferase 25 U/L (17-59); Blood Urea Nitrogen 14 mg/dL (9-20); CRP < 0.5 mg/dL (<1.0); Calcium 9.5 mg/dL (8.4-10.2); Carbon Dioxide 24 mmol/L (22-30); Chloride 107 mmol/L (98-107); Estimated Glomerular Filt Rate > 60; Glucose 93 mg/dL (65-110); Potassium 4.3 mmol/L (3.4-5.0); Sodium 137 mmol/L (137-145)
[2023-09-19 13:14] LABS: Erythrocyte Sedimentation Rate 22 mm/hr (0-20)
[2023-09-19 13:16] LABS: Add Urine Microscopic? NO
== END 2023-09-19 12:06 | disposition home or self-care (01) ==
PROVIDERS: PCP Family Medicine; Visit Provider Nurse Practitioner Family
DX: Z01.818 Encounter for other preprocedural examination (principal)
CPT/HCPCS: 36415; 80053; 81003; 85025; 85652; 86140; 93005

== ENCOUNTER 2023-11-06 08:20 | Outpatient (CLI) | payer MEDICARE, SELFPAY ==
--- NOTE | ~2023-11-06 | XR_ITS ---
AP and lateral views of the right hip Clinical history: Pain Findings: No acute fracture or dislocation is seen. Osseous alignment is anatomic. The right hip join t is preserved. Soft tissues are unremarkable. Impression: No significant abnormality is seen. Reviewed, dictated and finalized at location . Impression: No significant abnormality is seen.
== END 2023-11-06 08:21 | disposition home or self-care (01) ==
PROVIDERS: PCP Family Medicine; Visit Provider Nurse Practitioner Family
DX: M25.551 Pain in right hip (principal)
CPT/HCPCS: 73502

== ENCOUNTER 2023-11-15 08:19 | Emergency (ER) | payer MEDICARE, SELFPAY ==
--- NOTE | ~2023-11-15 | CT_ITS ---
EXAMINATION: CT abdomen pelvis w con DATE: 11/15/2023 09:36 INDICATION: Constipation. Diarrhea. TECHNIQUE: Computed tomography (CT) of the abdomen and pelvis was performed with 100 mL Omnipaque 350 intravenous contrast. Automated exposure control and iterative reconstruction technique were employe d. The dose-length product was 534.99 mGy-cm. COMPARISON: CT abdomen pelvis 07/03/2023 FINDINGS: The visualized portions of the lung bases demonstrate mild atelectasis and mild chronic int erstitial lung disease. Again seen is a 5 mm nodule in right middle lobe, likely benign. No pleural e ffusion. The heart size is normal. There are coronary artery calcifications. No pericardial effusion. Epidural electrodes are noted. Calcifications in the liver are consistent with old granulomatous dis ease. The gallbladder, spleen, pancreas, and adrenal glands are normal. There is cortical thinning of the kidneys. There is calcified atherosclerosis of the aorta and many of the other arteries. The pro state is moderately enlarged. There is liquid stool in the colon correlating with the symptom of diar bobo. The appendix is dilated to 14 mm with wall calcifications. There are no pathologically enlarged lymph nodes. There is no free intraperitoneal fluid. There is lumbar levoscoliosis and severe spondy losis. There is a chronic compression fracture of T12. There are bridging endplate osteophytes at mul tiple levels in the thoracic spine, consistent with diffuse idiopathic skeletal hyperostosis (DISH). IMPRESSION: 1. 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 Reviewed, dictated and finalized at location A.
[2023-11-15 08:32] VITALS: BP 150/67; PULSE 79; RESP 19; TEMP 36.5; O2SAT 99
[2023-11-15 08:41] VITALS: RESP 17; O2SAT 99
[2023-11-15 09:05] LABS: Basophils Percent Auto 0.3 % (0.2-1.2); Eosinophils Absolute Auto 0.3 K/mm3 (0-0.3); Eosinophils Percent Auto 2.2 % (0-4.4); Hemoglobin 12.6 g/dL (14.0-18.0); Immature Granulocyte Absolute 1.29 K/mm3 (0.00-0.031); Immature Granulocyte Percent A 8.4 % (0-0.5); Lymphocytes Absolute Auto 2.57 K/mm3 (0.9-3.2); Lymphocytes Percent Auto 16.8 % (18.3-44.2); Mean Corpuscular HGB Conc 33.2 g/dl (32-36); Mean Corpuscular Hemoglobin 31.7 pg (26-34); Mean Corpuscular Volume 95.7 fl (80-100); Mean Platelet Volume 10.5 fl (7.4-10.4); Monocytes Absolute Auto 1.3 K/mm3 (0.1-0.6); Monocytes Percent Auto 8.3 % (2.6-8.5); Neutrophils Absolute Auto 9.8 K/mm3 (1.3-6.7); Nucleated Red Blood Cells Perc 0.1 % (0.0-0.2); Platelet Count Result 448 k/mm3 (150-375); Red Blood Count 3.97 M/mm3 (4.6-6.20); Red Cell Distribution Width 17.4 % (11.5-14.5); White Blood Count 15.3 K/mm3 (4.5-10.0)
--- NOTE | 2023-11-15 09:08 | ED.GENADULT ---
HPI - General Adult General Chief complaint: Unspecified Stated complaint: constipated Time Seen by Provider: 11/15/23 09:07 Source: patient and family (son) Mode of arrival: ambulatory Limitations: no limitations History of Present Illness HPI narrative: 83-year-old male presents with complaint of 2 months of constipation ( infrequent bowel movements and requiring straining). he saw his primary care physician for this prescribed laxatives Which she has been using approximately 1 week. He has also been using stool softeners an tried Maalox. He has since had loose diarrheal stools since Monday. He says they are like yellow slime. He denies any blood. His last bowel movement was this morning and the same. He continues to pass flatus. No associated abdominal pain. He is not on opiates chronically. He has also noted pain with urination and increased frequency of urination with decreased urine output however. He denies any nausea, or vomiting. He did have a fever 1 week ago but took Advil and this resolved. No prior abdominal surgeries. No longstanding GI issues and has never seen a trust manager assistant. No prior colonoscopy or EGD. Related Data Home Medications Medication Instructions Recorded Confirmed aspirin 81 mg tablet,delayed 81 mg PO DAILY 08/23/19 08/15/23 release (Adult Low Dose Aspirin) Allergies Allergy/AdvReac Type Severity Reaction Status Date / Time No Known Allergies Allergy Mild Verified 11/10/23 15:19 [facility] Past Medical History Medical History BPH w urinary obs/LUTS Essential hypertension IFG (impaired fasting glucose) Mixed hyperlipidemia Wellness examination Family History Family History Mother Family history of malignant neoplasm of stomach Family history of heart disease in male family member before age 55 Father Family history of lung cancer Social History Social History Smoking status: Never smoker Second hand tobacco smoke exposure: No Alcohol intake: current Drinks per week: 2 Substance use: never Substance use type: does not use Living arrangements: with family Occupation/Education: retired Gender identity (if verbalized by the patient): Male Sexual Orientation (if Verbalized by the Patient): Straight or Heterosexual Spiritual care concerns: No Exam Narrative: GENERAL: Well-appearing, well-nourished, and in no acute distress. HEAD: Normocephalic, atraumatic. EYES: Non injected, non icteric ENT: Nares clear, no rhinorrhea or epistaxis. NECK: Supple. CHEST: Speaking in full sentences. No respiratory distress. HEART: Regular rate and rhythm. . ABDOMEN: Soft, nondistended. no tenderness to palpation. Abdomen is without rigidity or guarding. No overlying ecchymosis. EXTREMITIES: Normal range of motion. No edema. SKIN: Warm, dry, no rash. NEURO: No focal deficits. Alert and oriented . PSYCH: Normal mood and affect. Course Vital Signs Vital signs: Vital Signs Temperature 97.7 F 11/15/23 08:32 Pulse Rate 79 11/15/23 08:32 Respiratory Rate 19 11/15/23 08:32 Blood Pressure 150/67 H 11/15/23 08:32 Pulse Oximetry 99 11/15/23 08:32 Temperature 97.7 F 11/15/23 08:32 Pulse Rate 66 11/15/23 12:13 Respiratory Rate 19 11/15/23 12:13 Blood Pressure 111/50 L 11/15/23 12:13 Pulse Oximetry 99 11/15/23 12:13 Medical Decision Making MDM Narrative Medical decision making narrative: 83-year-old male presents to the emergency department. Patient has dealt with constipation ( infrequent stooling requiring straining) for the past 2 months. he trialed Maalox and stool softeners. He is also primary care physician for this was prescribed laxatives which he has been taking for approximately 1 week. Stools have now turned diarrhea low, described as
[2023-11-15 09:13] LABS: Appearance Urine Clear (Clear); Bacteria Urine 1+ /hpf; Bilirubin Urine Negative (Negative); Blood Urine Negative (Negative); Color Urine Dark Yellow (Yellow); Glucose Urine UA Negative (Negative); Ketones Urine Negative (Negative); Leukocyte Esterase Ur 1+ LEU/UL (Negative); Nitrate Urine Negative (Negative); Non Pathogenic Casts 0-2; Protein Urine Negative (Negative); RBC Urine 0-2 /hpf (0-2); Specific Grav Ur 1.021 (1.001-1.035); Squamous Epithelial Cell Urine None Seen /hpf (Few); Urobilinogen Urine 0.2 mg/dL (<2.0)
[2023-11-15 09:18] LABS: Add Urine Microscopic? YES
[2023-11-15 09:19] LABS: Alanine Aminotransferase 19 U/L (6-50); Albumin Level 4.2 g/dL (3.5-5.1); Alkaline Phosphatase 66 U/L (38-126); Anion Gap 6 mmol/L (4-12); Aspartate Amino Transferase 38 U/L (17-59); Bilirubin,Total 2.1 mg/dL (0.2-1.3); Blood Urea Nitrogen 16 mg/dL (9-20); Calcium 9.3 mg/dL (8.4-10.2); Carbon Dioxide 21 mmol/L (22-30); Chloride 109 mmol/L (98-107); Estimated CRCL calculation 55 ml/min; Estimated Glomerular Filt Rate > 60; Glucose 121 mg/dL (65-110); Lipase 51 U/L (23-300); Potassium 4.6 mmol/L (3.4-5.0); Sodium 136 mmol/L (137-145)
[2023-11-15 09:25] LABS: Giant Platelets Present; Large Platelets Present; Platelet Estimate Increased (Adequate)
[2023-11-15 09:26] LABS: Anisocytosis 1+; Schistocytes None Seen
[2023-11-15 09:43] VITALS: BP 135/61; PULSE 69; RESP 22; O2SAT 99
[2023-11-15] MEDS: SODIUM CHLORIDE 0.9% IV 1,000 ML 999 ML IV CONT (09:43)
[2023-11-15 10:13] LABS: Magnesium 1.9 mg/dL (1.6-2.3)
[2023-11-15 10:22] VITALS: BP 151/67; PULSE 67; RESP 17; O2SAT 100
[2023-11-15 10:42] LABS: Influenza A QL RT-PCR Negative (Negative); Influenza B QL RT-PCR Negative (Negative); SARS-CoV-2 RNA PCR Negative (Negative)
[2023-11-15 12:13] VITALS: BP 111/50; PULSE 66; RESP 19; O2SAT 99
== END 2023-11-15 12:13 | disposition home or self-care (01) ==
PROVIDERS: Emergency Provider Student in an Organized Health Care Education/Training Program; PCP Family Medicine
DX: N39.0 Urinary tract infection, site not specified (principal); K38.8 Other specified diseases of appendix; D72.829 Elevated white blood cell count, unspecified; D75.839 Thrombocytosis, unspecified; D64.9 Anemia, unspecified; R19.7 Diarrhea, unspecified; I10 Essential (primary) hypertension; E78.2 Mixed hyperlipidemia; N40.1 Benign prostatic hyperplasia with lower urinary tract symptoms; N13.8 Other obstructive and reflux uropathy; Z79.82 Long term (current) use of aspirin
CPT/HCPCS: 36415; 74177; 80053; 81001; 83605; 83690; 83735; 85025; 87077; 87086; 87088; 87181; 87636; 96365; 99284; J0696; J7030; Q9967

== ENCOUNTER 2024-03-21 08:02 | Outpatient (CLI) | payer MEDICARE, SELFPAY ==
[2024-03-21 09:06] LABS: Hematocrit 41.6 % (42.0-52.0); Hemoglobin 13.7 g/dL (14.0-18.0); Mean Corpuscular HGB Conc 32.9 g/dl (32-36); Mean Corpuscular Hemoglobin 32.4 pg (26-34); Mean Corpuscular Volume 98.3 fl (80-100); Mean Platelet Volume 11.3 fl (7.4-10.4); Platelet Count Result 263 k/mm3 (150-375); Red Blood Count 4.23 M/mm3 (4.6-6.20); Red Cell Distribution Width 17.1 % (11.5-14.5); White Blood Count 9.6 K/mm3 (4.5-10.0)
[2024-03-21 09:08] LABS: Add Urine Microscopic? NO; Appearance Urine Clear (Clear); Bilirubin Urine Negative (Negative); Blood Urine Negative (Negative); Color Urine Yellow (Yellow); Glucose Urine UA Negative (Negative); Ketones Urine Negative (Negative); Leukocyte Esterase Ur Negative LEU/UL (Negative); Nitrate Urine Negative (Negative); Protein Urine Negative (Negative); Specific Grav Ur 1.018 (1.001-1.035); Urobilinogen Urine 0.2 mg/dL (<2.0)
[2024-03-21 10:12] LABS: Alanine Aminotransferase 21 U/L (6-50); Albumin Level 4.2 g/dL (3.5-5.1); Alkaline Phosphatase 47 U/L (38-126); Anion Gap 7 mmol/L (4-12); Aspartate Amino Transferase 33 U/L (17-59); Bilirubin,Total 3.9 mg/dL (0.2-1.3); Blood Urea Nitrogen 15 mg/dL (9-20); Calcium 9.3 mg/dL (8.4-10.2); Carbon Dioxide 25 mmol/L (22-30); Chloride 107 mmol/L (98-107); Cholesterol 127 mg/dL (0-200); Estimated Glomerular Filt Rate > 60; Glucose 104 mg/dL (65-110); HDL Direct 34 mg/dL; Potassium 4.6 mmol/L (3.4-5.0); Sodium 139 mmol/L (137-145); Triglycerides 109 mg/dL (<150)
[2024-03-21 10:23] LABS: LDL Cholesterol Direct 63 mg/dL
[2024-03-21 12:27] LABS: Hemoglobin A1C 5.5 % (<5.7)
== END 2024-03-21 08:03 | disposition home or self-care (01) ==
LOC: ANHLAB 08:04
PROVIDERS: PCP Family Medicine; Visit Provider Family Medicine
DX: R73.01 Impaired fasting glucose (principal); E78.2 Mixed hyperlipidemia; I10 Essential (primary) hypertension
CPT/HCPCS: 36415; 80053; 80061; 81003; 83036; 85027

== ENCOUNTER 2024-05-06 10:33 | Outpatient (CLI) | payer MEDICARE, SELFPAY ==
--- NOTE | ~2024-05-06 | XR_ITS ---
XR abdomen/kub 1V Ordering provider: Alicia Turner APRN History: . FREQUENT CONSTIPATION, NO ABD SURG HX . Comparison: None. FINDINGS: BOWEL: Fecal material seen in the right side of the colon Nonobstructive bowel gas pattern. ORGANOMEGALY: None. SIGNIFICANT PATHOLOGIC CALCIFICATIONS: None. OTHER: Spinal stimulator is seen in the right lumbar area. Levoscoliosis. Degenerative changes of the spine with postoperative changes. No free air is seen under the diaphragm. IMPRESSION: NO ACUTE ABDOMINAL FINDINGS. Reviewed, dictated and finalized at location A. INE ASSISTANT
== END 2024-05-06 10:34 | disposition home or self-care (01) ==
LOC: ANHIMG 10:35
PROVIDERS: PCP Family Medicine; Visit Provider Nurse Practitioner Family
DX: K59.09 Other constipation (principal); R15.9 Full incontinence of feces
CPT/HCPCS: 74018

== ENCOUNTER 2024-05-20 13:43 | Outpatient (CLI) | payer MEDICARE, SELFPAY ==
--- NOTE | ~2024-05-20 | XR_ITS ---
XR abdomen/kub 1V Ordering provider: Alicia Turner APRN History: . R15.9 - Full incontinence of feces X 1+ MONTH . Comparison: None. FINDINGS: BOWEL: Nonobstructive bowel gas pattern. ORGANOMEGALY: None. SIGNIFICANT PATHOLOGIC CALCIFICATIONS: None. OTHER: No free air is seen under the diaphragm. Spinal stimulator is projected over the right side of the abdomen. Degenerative changes of the spine. Mild levoscoliosis. Bilateral hip osteoarthritic myra nges. Postoperative changes at the level of L3-L4. Bilateral sacroiliitis. IMPRESSION: NO ACUTE ABDOMINAL FINDINGS. Reviewed, dictated and finalized at location A. FACTURING QUALITY MANAGER
== END 2024-05-20 13:44 | disposition home or self-care (01) ==
LOC: ANHIMG 13:44
PROVIDERS: PCP Family Medicine; Visit Provider Nurse Practitioner Family
DX: R15.9 Full incontinence of feces (principal); K59.09 Other constipation
CPT/HCPCS: 74018

== ENCOUNTER 2024-06-08 07:42 | Inpatient (IN) | payer MEDICARE, SELFPAY ==
--- NOTE | 2024-05-30 09:46 | PC.NURSE ---
Report to the Outpatient Waiting Room, entrance under the green pavilion located off [facility], at time 11:15 AM on date _06/06/24 . Planned Procedure Time: __1:15 PM .? Time changes happen often and if your time is changed the preop area will call you the afternoon before. - You and your visitor will be asked to self-screen and do not enter if you have any COVID symptoms. Please call surgeon if you need to reschedule. - A mask is optional within the hospital at this time. Patients may have clear liquids (water, carbonated beverages, clear teas, apple juice) until 3 hours prior to surgery( 10:15 AM) with a maximum of 20 ounces. - No food from midnight until time of surgery and no smoking. This includes no chewing gum, candy or mints. - Infants may have breast milk until 4 hours before surgery, infant formula 6 hours prior to surgery. - Children will be allowed to drink immediately following surgery.? If applicable, please bring a bottle or sippy cup to assist with drinking. Juice, water, soda, and popsicles are readily available.? For infants on formula, please bring formula the day of surgery.? Pacifiers are allowed. Take only the following medications with a SIP of water on the morning of surgery: __NONE DO NOT STOP ANY OF YOUR OTHER PRESCRIPTION MEDICATIONS PRIOR TO SURGERY EXCEPT THE FOLLOWING Medications to discontinue per physician ___PT STATES HOLD ASPIRIN 7 DAYS PRE OP PER DR KINNEY Date to take last dose__05/29/24 Please no make-up, nail armenian, hairspray, perfume, deodorant, or body powder the day of surgery.? No jewelry (including any body piercings) or valuables the day of surgery, leave them at home.? Please take a shower or bath the night before, or the morning of, surgery with an antibacterial soap.? Wear comfortable, loose fitting clothing.? Children are encouraged to wear pajamas. - Jewelry must be removed prior to entering the operating room.? Rings and piercings that are not removed may be cut off. - The hospital will not accept responsibility for valuables.? - Please leave all valuables, including medications, at home the day of surgery. If you are going home after surgery, a licensed milk driver must drive you home.? - NO public transportation without another adult if you receive anesthesia. - We recommend that an adult stay with you for 24 hours following discharge. - We also recommend that you do not drive, make important decision, drink alcoholic beverages, or take any drugs that were not prescribed by your health care provider for at least 24 hours after your discharge time. For Pediatric surgeries, we recommend two adults accompany the child home. Follow any additional instructions given to you from your surgeon. Telephone instructions given to __PATIENT and asked if any additional questions and then verbalized understanding. Patient advised to call surgeon office or pre surgery nurse liaison [phone] if any additional questions.
[2024-05-30 09:52] VITALS: BMI 25.0
[2024-06-06] VITALS (13 sets, daily range): BP systolic 114–145; BP diastolic 50–67; PULSE 60–75; RESP 14–20; TEMP 35.6–37.3; O2SAT 94–100; BMI 24.2
--- NOTE | 2024-06-06 06:08 | WPDHPUPDATE1 ---
History and Physical Update Update Date/Time: 06/06/24 06:08 History and Physical has been reviewed, including an updated exam of the patient. There are NO changes in the patient's condition. Risks, benefits, and alternatives have been discussed and questions answered. Patient agrees to proceed with procedure.
--- NOTE | 2024-06-06 12:40 | P.PNAN_ITS ---
Anes - Initial Pre Proc Eval Procedure: Operation Date: 06/06/24 13:15 Proposed Procedures p Trans Urethral Resection Prostate - Gilmar Pickett MD Date/Time: 06/06/24 12:40 Surgeon: Gilmar Pickett MD Pre Op Diagnosis: BPH Patient Data Age: 84 Gender: M Height: 1.7 m Weight: 70.2 kg Last Vital Signs Temp 37.3 C 06/06/24 11:00 Pulse 68 06/06/24 11:00 Resp 14 06/06/24 11:00 BP 134/50 L 06/06/24 11:00 Pulse Ox 97 06/06/24 11:00 Allergies Allergy/AdvReac Type Severity Reaction Status Date / Time No Known Allergies Allergy Mild Verified 06/06/24 12:10 Home Medications ?Medication ?Instructions ?Recorded ?Confirmed ?Type aspirin 81 mg tablet,delayed 81 mg PO DAILY 08/23/19 06/06/24 History release (Adult Low Dose Aspirin) lisinopril 5 mg tablet 5 mg PO DAILY #90 tabs 04/16/24 06/06/24 Rx Patient hx anesthesia problems: none Family hx anesthesia problems: none Results Review: All pre-operative results and documents have been reviewed as part of the pre- operative evaluation. [facility] Past Medical History Medical History Chronic constipation BPH w urinary obs/LUTS Wellness examination Mixed hyperlipidemia IFG (impaired fasting glucose) Essential hypertension Surgical History Surgical History History of lumbar surgery w/ post-op complicating abscess Family History Family History Mother Family history of malignant neoplasm of stomach Family history of heart disease in male family member before age 55 Father Family history of lung cancer Social History Social History Smoking status: Never smoker Second hand tobacco smoke exposure: No Alcohol intake: current Drinks per week: 2 Substance use: never Substance use type: does not use Living arrangements: alone Occupation/Education: retired Gender identity (if verbalized by the patient): Male Sexual Orientation (if Verbalized by the Patient): Straight or Heterosexual Spiritual care concerns: No Anes - Eval Final PreProcedure Day of Procedure 06/06/24 12:40 Patient weight: normal Heart: regular rate and rhythm Lungs: clear to auscultation Airway: Mallampati scale class II Neurological: alert and oriented Last oral intake: >/= 8 hours ASA classification: III Emergent: no Anesthetic plan: proceed Anesthesia type and monitoring: general LMA and standard monitoring Results Review: All pre-operative results and documents have been reviewed as part of the pre- operative evaluation. Informed Consent: The patient's anesthetic plan and its attendant risks and benefits were discussed with the patient/family/POA. Questions were solicited and answers provided to the satisfaction of the patient/family/POA.
[2024-06-06] MEDS: ceFAZolin 2 GM/D5W 50 ML 2 GM/50 ML BAG IVPB (13:02)
[2024-06-06] MEDS: LIDOCAINE 2% GEL UROJET 10 ML PKG MUCOUS MEM (13:18)
--- NOTE | 2024-06-06 13:43 | S_PTH ---
PATIENT: Les Louis Jr. LOC: [id number] U#:[id number] AGE/SX: 84/M ROOM: 326 RE06/08/[address]: Gilmar Pickett MD : 1940 BED: 01 DIS: 06/10/2024 SPEC #: [id number] RECD: 06/07/24 09:01 STATUS: DORENE REMehreen #: [id number] VINICIUS: 06/06/24 13:[address]: Gilmar Pickett DEPT: [facility] Surgical RECD BY: Jaylene Szymanski ENTERED: 06/07/24 09:01 SP TYPE: Surgical OTHR DR: Nikolas Dockrey MD Tissues: A - Prostate Turp Procedures: P63 Hematoxylin and Eosin Stain Gross and Microscopic Level 4 AMACR(P504S)
[2024-06-06] MEDS: LACTATED RINGERS 1,000 ML 30 ML IV CONT (13:52)
--- NOTE | 2024-06-06 14:07 | W.PM.PROC2 ---
Procedure Note - Detailed Date of Procedure 06/06/24 Pre-op Diagnosis BPH Post-op Diagnosis Same Procedure Performed TURP Surgeon Gilmar Pickett MD Anesthesia General Description of Procedure The patient was brought to the operative suite where he is prepped and draped in routine sterile fashion while in the dorsal lithotomy position after the uneventful induction of a general LMA anesthetic. A 27 [place] resectoscope sheath was placed into his bladder. He had no urethral strictures. The patient had [trilobar/bilobar] hyperplasia with a small median lobe. The bladder itself was endoscopically normal, showing no mucosal hyperemia, intravesical neoplasm or foreign bodies. There was a single, orthotopic ureteral orifice bilaterally. These orifices were identified and preserved throughout the remainder of the procedure. Attention was first turned to resection of the median lobe. This resection was undertaken from the bladder neck to the verumontanum and carried out until the transverse fibers of the bladder neck were identified. The left lateral lobe was then resected starting at the 6 o'clock position, working counter clockwise to the 12 o'clock position. Again, resection was carried out from the bladder neck to the verumontanum until the capsular fibers of the prostate were identified. The right lateral lobe was resected in a similar fashion starting at the 6 o'clock position working clockwise to the 12 o'clock position and carried out until the capsular fibers of the prostate were identified. Apical tissue was then circumferentially resected. All chips were evacuated from the bladder using an [employer] evacuator. Hemostasis was obtained with electric cautery. The ureteral orifices were again inspected and found to be without injury. Estimated blood loss throughout this procedure was 75cc. The patient was taken to recovery room having tolerated this well. Drains Yes Packing No Pathology Yes Complications No immediate complications
--- NOTE | 2024-06-06 15:30 | ADMGEN ---
This patient, Les Louis Jr., was admitted to [facility] Room 326-01. Patient/family oriented to hospital policies and general routines including ID bracelet, bed and alarms, visiting hours, pain management, procedures, bathroom and other care routines, personal items, smoking policy, room service/diet, and visiting hours. Information on how to activate the Rapid Response Team has been discussed. Patient/Family are encouraged to report perceived risks to care and to ask questions if they do not understand what they are told or what they should do.
[2024-06-06] MEDS: ceFAZolin 1 GM/NS 50 ML 1 GM/50 ML BAG IVPB (20:33)
[2024-06-06] MEDS: HYDROcodone/acetaminophen (*CRX) 5-325 MG TABLET 1 TAB PO (20:33)
[2024-06-07] VITALS (10 sets, daily range): BP systolic 100–131; BP diastolic 48–66; PULSE 64–92; RESP 18–36; TEMP 36.2–37.2; O2SAT 91–100
[2024-06-07] MEDS: ceFAZolin 1 GM/NS 50 ML 1 GM/50 ML BAG IVPB (05:06)
--- NOTE | 2024-06-07 06:37 | WPDUROPN2 ---
Progress Note: A&P Assessment and Plan (1) BPH w urinary obs/LUTS: Code(s): N40.1 - Benign prostatic hyperplasia with lower urinary tract symptoms; N13.8 - Other obstructive and reflux uropathy Status: Acute Assessment and Plan: Doing well POD #1 s/p TURP .Stop CBI now with plan voiding trial later this morning Subjective Subjective Date/Time Seen: 06/07/24 06:37 Interval history: Comfortable, no complaints Review of Systems Cardiovascular: Cardiovascular: Denies chest pain, Denies lightheadedness, Denies palpitations and Denies dyspnea Respiratory: Respiratory: Denies dyspnea Gastrointestinal: Gastrointestinal: Denies diarrhea, Denies nausea and Denies vomiting Genitourinary: Genitourinary: Denies hematuria and Denies dysuria Endocrine: Endocrine: Denies palpitations Exam Const: General: no acute distress Resp: Effort & Inspection: normal respiratory effort GI: Inspection: non-distended GI Palp: No abdominal tenderness and No Guarding due to palpation present (GI) Auscultation: normal bowel sounds Objective Data Vital Signs Vital Signs: Vital Signs - 24 hr 06/06/24 11:00 06/06/24 13:52 06/06/24 14:05 Temperature 99.1 F 97.4 F L Pulse Rate 68 75 67 Respiratory Rate 14 16 17 Blood Pressure 134/50 L 145/67 H 143/66 H Pulse Oximetry 97 94 100 Oxygen Delivery Room Air Simple Face Mask Oxygen Flow Rate 8 06/06/24 14:20 06/06/24 14:30 06/06/24 14:45 Temperature Pulse Rate 65 64 62 Respiratory Rate 16 14 18 Blood Pressure 145/61 H 141/59 H 137/59 L Pulse Oximetry 100 97 96 Oxygen Delivery Simple Face Mask Room Air Room Air Oxygen Flow Rate 8 06/06/24 14:55 06/06/24 15:08 06/06/24 15:35 Temperature 97.4 F L 97.5 F L Pulse Rate 64 64 62 Respiratory Rate 19 18 18 Blood Pressure 139/62 137/59 L 114/50 L Pulse Oximetry 95 96 98 Oxygen Delivery Room Air Room Air Oxygen Flow Rate 06/06/24 15:50 06/06/24 16:20 06/06/24 17:20 Temperature 97.5 F L 96.1 F L 96.7 F L Pulse Rate 61 60 65 Respiratory Rate 18 16 Blood Pressure 140/53 L 131/53 L 126/50 L Pulse Oximetry 97 97 97 Oxygen Delivery Oxygen Flow Rate 06/06/24 20:00 06/06/24 20:57 06/07/24 00:45 Temperature 98.2 F 98.2 F Pulse Rate 63 64 Respiratory Rate 20 20 Blood Pressure 135/56 L 110/50 L Pulse Oximetry 97 95 Oxygen Delivery Room Air Oxygen Flow Rate 06/07/24 06:00 Temperature 98.9 F Pulse Rate 72 Respiratory Rate 20 Blood Pressure 131/54 L Pulse Oximetry 95 Oxygen Delivery Oxygen Flow Rate Intake/Output Intake/Output: Intake & Output 06/04/24 06/05/24 06/06/24 06/07/24 23:59 23:59 23:59 23:59 Intake Total 390 350 Output Total 1425 8549 Balance -5627 -198 Meds/Results Medications: Active Medications Generic Name Dose Route Start Last Admin Trade Name Freq PRN Reason Stop Dose Admin Hydrocodone Bitart/Acetaminophen 1 tab 06/06/24 15:12 06/06/24 20:33 Hydrocodone/Acetaminophen (*Crx) 5-325 Mg Tablet PO 1 tab Q4H PRN Administration Pain Rated 1-6 Cephalexin HCl 500 mg 06/07/24 09:00 Cephalexin 500 Mg Capsule PO QID [facility] Docusate Sodium 100 mg 06/06/24 17:00 06/06/24 17:51 Docusate Sodium 100 Mg Capsule PO Not Given BID [facility] Fentanyl Citrate 25 mcg 06/06/24 12:41 Fentanyl Citrate Inj (*Crx) 100 Mcg/2 Ml Vial IV PUSH Q2M PRN Pain Hyoscyamine 0.125 mg 06/06/24 15:12 Hyoscyamine Sulfate 0.125 Mg Tablet SUBLINGUAL Q6H PRN Bladder Spasm Lisinopril 5 mg 06/07/24 09:00 Lisinopril 5 Mg Tablet PO DAILY [facility] Morphine Sulfate 2 mg 06/06/24 15:12 Morphine Sulfate (*Crx) 2 Mg/Ml Inj IV PUSH Q2H PRN Pain Rated 7-10 Naloxone HCl 0.1 mg 06/06/24 15:12 Naloxone Hcl 0.4 Mg/Ml Vial IV PUSH Q2M PRN Opiate Reversal Ondansetron HCl 4 mg 06/06/24 12:41 Ondansetron Inj 4 Mg/2 Ml Vial IV PUSH ONCE PRN Nausea Ondansetron HCl 4 mg 06/06/24 15:12 Ondansetron Inj 4 Mg/2 Ml Vial IV PUSH Q12H PRN Nausea And Vomiting Oxycodone HCl 5 mg 06/06/24 12:41 Oxycodone Hcl (*Crx) 5 Mg Tab Ir PO ONCE PRN Pain
[2024-06-07 07:36] LABS: Hemoglobin 11.5 g/dL (14.0-18.0)
[2024-06-07 07:41] LABS: Anion Gap 3 mmol/L (4-12); Blood Urea Nitrogen 17 mg/dL (9-20); Calcium 8.8 mg/dL (8.4-10.2); Carbon Dioxide 26 mmol/L (22-30); Chloride 104 mmol/L (98-107); Estimated CRCL calculation 40 ml/min; Estimated Glomerular Filt Rate > 60; Glucose 171 mg/dL (65-110); Potassium 4.5 mmol/L (3.4-5.0); Sodium 133 mmol/L (137-145)
[2024-06-07] MEDS: CEPHALEXIN 500 MG CAPSULE PO ×2 (09:19→12:19)
[2024-06-07] MEDS: DOCUSATE SODIUM 100 MG CAPSULE PO (09:19)
[2024-06-07] MEDS: lisinopriL 5 MG TABLET PO (09:19)
[2024-06-07 11:55] LABS: Glucose Point of Care 119 mg/dl (65-105)
[2024-06-07] MEDS: oxyCODONE HCL (*CRX) 5 MG TAB IR PO (12:19)
[2024-06-07] MEDS: SODIUM CHLORIDE 0.9% IV 1,000 ML 999 ML IV CONT ×3 (13:18→17:15)
[2024-06-07 13:29] LABS: Glucose Point of Care 176 mg/dl (65-105)
--- NOTE | 2024-06-07 13:34 | ECG_ITS ---
Test Date: 2024-06-07 13:38:11 Measurements Intervals Orange Rate: 81 P: 48 CO: 156 QRS: 34 QRSD: 92 T: 28 QT: 352 QTc: 410 Interpretive Statements SINUS RHYTHM No previous ECG available for comparison Electronically Signed On 06-07-2024 15:47:23 HEARINGS REPORTER by Isaias Woods M.D.
--- NOTE | 2024-06-07 14:03 | PC.NURSE ---
This pt found lying perpendicular in bed when this RN rushed into pt son calling for RN approx 1120. Pt stated he felt dizzy and was diaphoretic. Vitals were 118/39, HR 70, temp 97.5, R 20 on RA and glucose 119. Pt abdomen firm and distended and c/o pain circumferentially around abdomen. Bladder scanned pt as pt had cornejo pulled two hours prior. Bed alarm activated. Call to [facility] who came to bedside who felt it was a vagal response possibly to pain. Okay to give one time deuce 5mg PO. Pt rechecked about 50 minutes later and lying comfortably in bed. Approx 1325, this RN called to room. Pt eyes were glassy, not focusing. Sonorous breathing noted. Rapid called. Pt unable to respond to questions. 2L 02 via NC applied. Called Parres to notify him of rapid and request hospitalist consult.
[2024-06-07 14:09] LABS: Hematocrit 33.6 % (42.0-52.0); Hemoglobin 11.4 g/dL (14.0-18.0); Mean Corpuscular HGB Conc 33.9 g/dl (32-36); Mean Corpuscular Hemoglobin 32.1 pg (26-34); Mean Corpuscular Volume 94.6 fl (80-100); Mean Platelet Volume 10.4 fl (7.4-10.4); Platelet Count Result 315 k/mm3 (150-375); Red Blood Count 3.55 M/mm3 (4.6-6.20); White Blood Count 18.9 K/mm3 (4.5-10.0)
--- NOTE | 2024-06-07 14:17 | PM.IMCN ---
Assessment and Plan Assessment and plan (1) UTI (urinary tract infection): Qualifiers: Hematuria presence: without hematuria Code(s): N39.0 - Urinary tract infection, site not specified Status: Inactive Assessment and Plan: Patient was found to have urosepsis with leukocytosis of18.9 Lactic acid and hypotension resolved with fluid bolus IV Rocephin CMP and CBC in the morning to monitor (2) Altered mental status: Code(s): R41.82 - Altered mental status, unspecified Status: Acute Assessment and Plan: Rapid response for hypotension and transient altered mental status 12 lead EKG normal sinus rhythm chest x-ray pending KUB appears to have dilated small bowels CT head no acute finding CT abdomen pelvis show cystitis (3) ROBIN (acute kidney injury): Code(s): N17.9 - Acute kidney failure, unspecified Status: Acute Assessment and Plan: Baseline 0.9 2 L fluid bolus Avoid nephrotoxic medications Hold lisinopril Repeat BMP in the morning (4) Hypotension: Code(s): I95.9 - Hypotension, unspecified Status: Acute Assessment and Plan: Secondary to above Resolved 2 L fluid bolus (5) Lactic acid acidosis: Code(s): E87.20 - Acidosis, unspecified Status: Acute Assessment and Plan: Secondary to above Resolved to 10 L fluid bolus (6) Sepsis: Code(s): A41.9 - Sepsis, unspecified organism Status: Acute Assessment and Plan: Patient started on Zosyn however due to his ROBIN and receiving contrast he is given low-dose Zosyn, please re-evaluate creatinine and leukocytosis in the morning to see if he can be on standard Zosyn dose Patient found to have urosepsis changed the Zosyn to Rocephin (7) 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 Multiple small hypoenhancing lesions at the periphery of the spleen with larger peripheral wedge-shaped region of hypoenhancement at the caudal spleen most consistent with splenic infarcts. EKG shows normal sinus rhythm Bilateral lower extremity Venous Dopplers ordered SubQ heparin q.8 HPI Date of Consult Consult date: 06/07/24 Requesting Physician: Gilmar Pickett MD Primary Care Provider: Nikolas Dockery MD Consult Narrative Narrative: Les Lousi Jr. is a 84 year old male denies medical history surgical patient for urology for TURP. Patient became diaphoretic and hypotensive and a rapid response was called, PLUMBER SUPERVISOR at bedside for rapid response and consulted by Urology. Blood work from rapid response shows leukocytosis at 18.9 and lactic acid of 3.4 patient will be given fluid bolus and transferred to IMU after CT. Patient is found to have a ROBIN, will fluid bolus before CT chest abdomen and pelvis with contrast for sepsis and kidney protection. CT abdomen and pelvis show bladder wall thickening likely cystitis, patient was started on Rocephin. He was given a total of 2 L fluid bolus per sepsis protocol with lactic acid going from 3.4 to 2.2. Patient's hypotension is resolved and is stable to stay in his room he does not need to be moved IMU. Review of Systems Review of Systems: 12 systems were reviewed and are negative except for as per HPI. [facility] Past Medical History Medical History Chronic constipation BPH w urinary obs/LUTS Wellness examination Mixed hyperlipidemia IFG (impaired fasting glucose) Essential hypertension Surgical History Surgical History Hx of transurethral resection of prostate History of lumbar surgery w/ post-op complicating abscess Family History Family History Mother Family history of malignant neoplasm of stomach Family history of heart disease in male family member before age 55 Father Family history of lung cancer Social History Social History Smoking status: Never smoker Second hand tobacco smoke exposure: No Alcohol intake: current Drinks per week: 4 Substance use: never Substance use type: does not use Do You Feel Safe in your Home?: Yes Lack of Transportation: No Lack of Food: Never True Current Housing: I Have Housing Concerned About Future Housing: No Difficulty Paying Gas/Electric Bills: No Difficulty Paying for Meds: No Currently Unemployed: No Education: Trade/Vocational Certificate Difficulty w/ Childcare or Family Care: No Living arrangements: alone Occupation/Education: retired Gender identity (if verbalized by the patient): Male Sexual Orientation (if Verbalized by the Patient): Straight or Heterosexual Spiritual care concerns: No Meds Home Medications and Allergies Home Medications ?Medication ?Instructions ?Recorded ?Confirmed ?Type aspirin 81 mg tablet,delayed 81 mg PO DAILY 08/23/19 06/06/24 History release (Adult Low Dose Aspirin) lisinopril 5 mg tablet 5 mg PO DAILY #90 tabs 04/16/24 06/06/24 Rx cephalexin 500 mg capsule 500 mg PO Q8H #9 caps 06/07/24 Rx docusate sodium 100 mg capsule 100 mg PO DAILY #30 caps 06/07/24 Rx (Colace) hydrocodone 5 mg-acetaminophen 325 1 - 2 tablet PO Q6H PRN pain #20 06/07/24 Rx mg tablet tabs Allergies Allergy/AdvReac Type Severity Reaction Status Date / Time No Known Allergies Allergy Mild Verified 06/06/24 17:24 Vital Signs Vital Signs - 24 hr 06/06/24 14:20 06/06/24 14:30 06/06/24 14:45 Temperature Pulse Rate 65 64 62 Respiratory Rate 16 14 18 Blood Pressure 145/61 H 141/59 H 137/59 L Pulse Oximetry 100 97 96 Oxygen Delivery Simple Face Mask Room Air Room Air Oxygen Flow Rate 8 06/06/24 14:55 06/06/24 15:08 06/06/24 15:35 Temperature 97.4 F L 97.5 F L Pulse Rate 64 64 62 Respiratory Rate 19 18 18 Blood Pressure 139/62 137/59 L 114/50 L Pulse Oximetry 95 96 98 Oxygen Delivery Room Air Room Air Oxygen Flow Rate 06/06/24 15:50 06/06/24 16:20 06/06/24 17:20 Temperature 97.5 F L 96.1 F L 96.7 F L Pulse Rate 61 60 65 Respiratory Rate 18 16 Blood Pressure 140/53 L 131/53 L 126/50 L Pulse Oximetry 97 97 97 Oxygen Delivery Oxygen Flow Rate 06/06/24 20:00 06/06/24 20:57 06/07/24 00:45 Temperature 98.2 F 98.2 F Pulse Rate 63 64 Respiratory Rate 20 20 Blood Pressure 135/56 L 110/50 L Pulse Oximetry 97 95 Oxygen Delivery Room Air Oxygen Flow Rate 06/07/24 06:00 06/07/24 08:57 06/07/24 13:25 Temperature 98.9 F 97.2 F L Pulse Rate 72 92 80 Respiratory Rate 20 18 36 H Blood Pressure 131/54 L 120/48 L 122/58 L Pulse Oximetry 95 100 91 Oxygen Delivery Oxygen Flow Rate 06/07/24 13:40 06/07/24 13:45 Temperature Pulse Rate 81 Respiratory Rate 36 H Blood Pressure 118/50 L 122/58 L Pulse Oximetry 91 Oxygen Delivery Nasal Cannula Oxygen Flow Rate 2 Exam Narrative: General: Diaphoretic, ill-appearing HEENT: normocephalic, atraumatic. Mucous membranes moist. EOMI, PERRLA, bilateral sclera anicteric, no conjunctival injection. Neck supple without JVD, lymphadenopathy, or bruit. Respiratory: clear to ascultation bilaterally. No rales/rhonic/wheezes. Cardiovascular: Regular rate and rhythm, normal S1-S2 upon ascultation. No murmurs, rubs, or clicks. PMI is nondisplaced, capillary refill less than 3 second. Abdomen: Distended, round, no pulsatile masses, and nontender. No rebound, no guarding. No CVA tenderness, no hepatosplenomegaly. Bowel sounds present to all four quadrants. No high pitch or tinkling sounds, resonant to percussion. Extremities: No cyanosis, clubbing, or edema present. Pulses are palpable 2/2. Active ROM to all four extremities. Neuro: Alert and orientated x 4. PERRLA. Cranial nerves 2-12 intact without focal deficit. Skin: Warm, dry, and intact, without rash, erythema, or lesion. Pale Psych: pleasant, cooperative, normal speech, normal affect, no hallucinations, no dysarthia Results Labs 06/07/24 13:59 06/07/24 13:59 Labs: Short CBC 06/07/24 06/07/24 Range/Units 06:55 13:59 WBC 18.9 H (4.5-10.0) K/mm3 Hgb 11.5 L 11.4 L (14.0-18.0) g/dL Hct 34.0 L 33.6 L (42.0-52.0) % Plt Count 315 (150-375) k/mm3 [facility] 06/07/24 06:55 Sodium 133 L Potassium 4.5 Chloride 104 Carbon Dioxide 26 BUN 17 Creatinine 1.10 Glucose 171 H Calcium 8.8 Quality VTE Prophylaxis VTE prophylaxis: pharmacologic ordered Hospitalist MIPS Advance Care Plan I have confirmed that the patient's Advanced Care Plan is present, code status is documented, or surrogate decision maker is listed in patient medical record.: Yes Medication Reconciliation I have utilized all available resources to obtain, update and review the patients current medications (includes all prescriptions, OTC, herbals, cannabis, and nutritional supplements).: Yes
[2024-06-07 14:20] LABS: Lactic Acid Reflex 3.4 mmol/L (0.7-2.0)
[2024-06-07 14:28] LABS: Alanine Aminotransferase 17 U/L (6-50); Albumin Level 3.4 g/dL (3.5-5.1); Alkaline Phosphatase 60 U/L (38-126); Anion Gap 6 mmol/L (4-12); Aspartate Amino Transferase 36 U/L (17-59); Bilirubin,Total 3.1 mg/dL (0.2-1.3); Blood Urea Nitrogen 20 mg/dL (9-20); Calcium 8.6 mg/dL (8.4-10.2); Carbon Dioxide 22 mmol/L (22-30); Chloride 106 mmol/L (98-107); Estimated CRCL calculation 28 ml/min; Estimated Glomerular Filt Rate 41; Glucose 184 mg/dL (65-110); Potassium 4.9 mmol/L (3.4-5.0); Sodium 134 mmol/L (137-145)
[2024-06-07 14:40] LABS: NT Pro B Type Natriuretic Pept 401 pg/mL (19.9-100); Troponin I < 0.012 ng/mL (0.000-0.034)
[2024-06-07] MEDS: PIPERACILLIN/TAZ 2.25G/NS 50ML 2.25 GM/50 ML BAG IVPB ×2 (15:20→20:41)
[2024-06-07] MEDS: ONDANSETRON INJ 4 MG/2 ML VIAL IV PUSH (15:20)
[2024-06-07] MEDS: SODIUM CHLORIDE 0.9% IV 1,000 ML 100 ML IV CONT (15:20)
[2024-06-07 16:07] LABS: Alveolar/Arterial O2 Gradient 85.6 mmHg; Base Excess ABG -3.7 mEq/l (+/-2.0); Fractional Inspired Oxygen 28 %; HCO3 ABG 19.7 mEq/l (22.0-26.0); Oxygen Saturation ABG 96.1 % (95.0-100.0); Oxyhemoglobin 94.9 % THb (90.0-100.0); PCO2 ABG 30.2 mmHg (35.0-45.0); PO2 ABG 78.4 mmHg (80.0-100.0); Total Hemoglobin 11.2 g/dL (12.0-18.0); pH ABG 7.432 (7.350-7.450)
[2024-06-07 16:08] LABS: Device NASAL CANNULA; Site Drawn LEFT BRACHIAL
[2024-06-07 17:07] LABS: Reflex Lactic Acid Yes or No Add Lactic
[2024-06-07 18:19] LABS: Lactic Acid 2.2 mmol/L (0.7-2.0)
[2024-06-07 20:50] LABS: Add Urine Microscopic? YES; Appearance Urine Cloudy (Clear); Bacteria Urine None Seen /hpf; Bilirubin Urine Negative (Negative); Blood Urine 3+ (Negative); Color Urine Yellow (Yellow); Glucose Urine UA Negative (Negative); Ketones Urine Negative (Negative); Leukocyte Esterase Ur 2+ LEU/UL (Negative); Nitrate Urine Negative (Negative); Non Pathogenic Casts 0-2; Protein Urine 1+ mg/dL (Negative); RBC Urine >100 /hpf (0-2); Specific Grav Ur 1.026 (1.001-1.035); Squamous Epithelial Cell Urine Occasional /hpf (Few); WBC Urine 21-50 /hpf (0-3); pH Urine 5.5 (5.0-9.0)
[2024-06-08] VITALS (15 sets, daily range): BP systolic 98–118; BP diastolic 36–54; PULSE 55–76; RESP 18–20; TEMP 35.9–37.2; O2SAT 94–100
--- NOTE | ~2024-06-08 | US_ITS ---
US venous doppler [facility] DATE: 06/08/2024 16:33 INDICATION: Splenic infarct TECHNIQUE: Real-time and color flow imaging and Doppler analysis of the veins of both lower extremiti es COMPARISON: None FINDINGS: Greater saphenous veins are patent. There is spontaneous and phasic flow and normal augment ation and color flow signal and normal compression of the deep veins of both lower extremities. IMPRESSION: No evidence of deep venous thrombosis of the lower extremities Reviewed, dictated and finalized at [facility]. Reviewed, dictated and finalized at location [facility]. ECTOR TUBES
--- NOTE | ~2024-06-08 | XR_ITS ---
XR abdomen/kub 1V Ordering provider: Jody Melgar APRN History: . constipation . Comparison: None. FINDINGS: BOWEL: Nonobstructive bowel gas pattern. ORGANOMEGALY: None. SIGNIFICANT PATHOLOGIC CALCIFICATIONS: None. OTHER: No free air is seen under the diaphragm. Degenerative changes of the spine. Mild levoscoliosis. Bilateral sacroiliacs. Spinal stimulator is se en in the right side. IMPRESSION: NO ACUTE ABDOMINAL FINDINGS. Reviewed, dictated and finalized at location [facility]. ENT FINISHER
--- NOTE | ~2024-06-08 | CT_ITS ---
EXAMINATION: CT brain wo con DATE: 06/07/2024 14:57 INDICATION: Altered mental status. TECHNIQUE: Computed tomography (CT) of the head was performed without intravenous contrast. The mA wa s adjusted according to patient size. Iterative reconstruction technique was employed. The dose-lengt h product was 681.00 mGy-cm. COMPARISON: None FINDINGS: There is no intracranial hemorrhage, acute infarction, or abnormal intracranial mass lesion . There are scattered areas of low attenuation in the cerebral white matter, which is within normal l imits for the patient's age. The ventricles are normal in size. There is mild mucosal thickening in t he paranasal sinuses. The mastoid air cells are normal. There are likely changes of ocular lens repla cement surgeries. IMPRESSION: 1. Normal aging brain. Reviewed, dictated and finalized at location [facility]. R HELPER IMPRESSION: 1. Normal aging brain.
--- NOTE | ~2024-06-08 | XR_ITS ---
XR abdomen/kub 1V 06/07/2024 14:13 Indication: Abdominal distention Procedure: AP portable chest Comparison: 05/20/2024 Findings: Moderate gas throughout the colon. Moderate colonic fecal loading. No obstruction. No abnor mal calcifications. There is severe lumbar spondylosis with levoscoliosis. Battery pack overlies the right mid abdomen with leads extending into the lower thoracic spine, incompletely visualized. No acu te osseous abnormality. Impression: 1: Nonobstructive bowel gas pattern. Reviewed, dictated and finalized at location [facility]. ERN DRUM MAKER Impression: 1: Nonobstructive bowel gas pattern.
--- NOTE | ~2024-06-08 | CT_ITS ---
EXAMINATION: CT chest abdomen pelvis w con DATE: 06/07/2024 15:20 INDICATION: Sepsis TECHNIQUE: Computed tomography (CT) of the chest, abdomen, and pelvis was performed with 100 mL Omnip aque-350 intravenous contrast. Automated exposure control and iterative reconstruction technique were employed. The dose-length product was 1060.42 mGy-cm. COMPARISON: CT abdomen pelvis dated 11/15/2023 FINDINGS: CHEST CT: Mild atelectasis in bilateral lower lungs most prominent in the dependent and basilar left lower lobe and lingula and to lesser degree in the right lower lobe. Couple small calcified nodules in the righ t lung consistent with old granulomatous disease. No evident pneumonia, pulmonary edema or pleural ef fusion. Heart size is normal with right atrial enlargement. Atherosclerotic coronary artery calcifica tions. Thoracic aorta is normal in caliber with no dissection. No pathologically enlarged thoracic ly mphadenopathy. Mild thoracic spondylosis with bridging osteophytes at multiple levels consistent with diffuse idiopathic skeletal hyperostosis (DISH). Spinal stimulator leads project over the posterior central canal the thoracic spine with distal tip at the level of T6-T7. Chronic T12 compression fract ure. ABDOMEN/PELVIS CT: Liver, gallbladder, pancreas, bilateral adrenal glands and kidneys are normal. There are multiple sma ll peripheral hypoenhancing lesions throughout the spleen with larger peripheral wedge-shaped region of hypoenhancement at the caudal tip most suspicious for splenic infarcts. A few <5 mm bilateral low- attenuation likely renal cysts which are too small to definitively characterize. No interval change i n appearance of the appendix the distal tip of which is dilated with rim calcification consistent wit h chronic mucocele. Bowels are otherwise unremarkable. Prostatomegaly with change of likely transuret hral prostatectomy. There is prominent bladder wall thickening with stranding in the surrounding fat consistent with cystitis. Small focus of gas within the lumen of the bladder. No free intraperitoneal gas or fluid. No pathologically enlarged abdominal or pelvic lymphadenopathy. Lumbar levoscoliosis w ith severe spondylosis. There is anterior fusion at L2-L3. L2-L4 laminectomies. There is also ankylos is across the bilateral sacral iliac joints. IMPRESSION: 1. Bladder wall thickening and surrounding inflammatory stranding consistent with cystitis. Correlate with urinalysis. 2. Small region of hypoenhancement at the inferior spleen and a few additional 3. Multiple small hypoenhancing lesions at the periphery of the spleen with larger peripheral wedge-s haped region of hypoenhancement at the caudal spleen most consistent with splenic infarcts. 4. Chronic dilated tip of the appendix with mural calcification consistent with chronic mucocele. Reviewed, dictated and finalized at location [facility]. PROCESS MILLER HEAD ASSISTANT IMPRESSION: 1. Bladder wall thickening and surrounding inflammatory stranding consistent wi th cystitis. Correlate with urinalysis. 2. Small region of hypoenhancement at the inferior spleen and a few additional 3. Multiple small hypoenhancing lesions at the periphery of the spleen with lar charlene peripheral wedge-shaped region of hypoenhancement at the caudal spleen most consistent with splenic infarcts. 4. Chronic dilated tip of the appendix with mural calcification consistent with chronic mucocele.
--- NOTE | ~2024-06-08 | XR_ITS ---
Portable chest x-ray Comparison: 08/23/2019 Clinical History: Altered mental status Findings: Questionable minimal haziness left lung base. Right lung clear. Cardiomediastinal silhoue tte is stable. Bones and soft tissues are unremarkable. Impression: Questionable minimal haziness left lung base. Correlate for subtle pneumonia. Reviewed, dictated and finalized at [facility]. SPLASHER Impression: Questionable minimal haziness left lung base. Correlate for subtle pneumonia.
[2024-06-08] MEDS: HEPARIN SODIUM 5,000 UNITS/ML VIAL 5000 UNITS SUB-Q ×3 (05:26→21:30)
[2024-06-08] MEDS: SODIUM CHLORIDE 0.9% IV 1,000 ML 100 ML IV CONT (07:20)
--- NOTE | 2024-06-08 11:15 | P.CONIM_ITS ---
Assessment and Plan Assessment and plan (1) UTI (urinary tract infection): Qualifiers: Hematuria presence: without hematuria Code(s): N39.0 - Urinary tract infection, site not specified Status: Inactive Assessment and Plan: Patient was found to have urosepsis with leukocytosis of18.9 Lactic acid and hypotension resolved with fluid bolus IV Rocephin CMP and CBC in the morning to monitor ordered labs today (2) Altered mental status: Code(s): R41.82 - Altered mental status, unspecified Status: Acute Assessment and Plan: Rapid response for hypotension and transient altered mental status 12 lead EKG normal sinus rhythm chest x-ray pending KUB appears to have dilated small bowels CT head no acute finding CT abdomen pelvis show cystitis resolved- pt is alert/oriented x 4 (3) ROBIN (acute kidney injury): Code(s): N17.9 - Acute kidney failure, unspecified Status: Acute Assessment and Plan: Baseline 0.9 2 L fluid bolus Avoid nephrotoxic medications Hold lisinopril Repeat BMP in the morning (4) Hypotension: Code(s): I95.9 - Hypotension, unspecified Status: Acute Assessment and Plan: Secondary to above Resolved 2 L fluid bolus (5) Lactic acid acidosis: Code(s): E87.20 - Acidosis, unspecified Status: Acute Assessment and Plan: Secondary to above Resolved to 10 L fluid bolus (6) Sepsis: Code(s): A41.9 - Sepsis, unspecified organism Status: Acute Assessment and Plan: Patient started on Zosyn however due to his ROBIN and receiving contrast he is given low-dose Zosyn, please re-evaluate creatinine and leukocytosis in the morning to see if he can be on standard Zosyn dose Patient found to have urosepsis changed the Zosyn to Rocephin (7) 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 Multiple small hypoenhancing lesions at the periphery of the spleen with larger peripheral wedge-shaped region of hypoenhancement at the caudal spleen most consistent with splenic infarcts. EKG shows normal sinus rhythm Bilateral lower extremity Venous Dopplers ordered SubQ heparin q.8 HPI Date of Consult Consult date: 06/08/24 Requesting Physician: Gilmar Pickett MD Primary Care Provider: Nikolas Dockery MD Consult Narrative Reason for consult: med mngmnt Narrative: Les Louis Jr. is a 84 year old male denies medical history surgical patient for urology for TURP. Patient became diaphoretic and hypotensive and a rapid response was called 06/07. Noted- leukocytosis at 18.9 and lactic acid of 3.4 patient will be given fluid bolus. Patient is found to have a ROBIN, will fluid bolus before CT chest abdomen and pelvis with contrast for sepsis and kidney protection. CT abdomen and pelvis show bladder wall thickening likely cystitis, patient was started on Rocephin. He was given a total of 2 L fluid bolus per sepsis protocol with lactic acid going from 3.4 to 2.2. Patient's hypotension is resolved. 06/08- pt is seen and examined. He is alert, pleasant. Reports feeling 100% better than yesterday. wants to stop oxygen- will weaned off and monitor. Reports no pain today. Review of Systems 2 Review of Systems: 12 systems were reviewed and are negativ e except for as per HPI. [facility] Past Medical History Medical History Chronic constipation BPH w urinary obs/LUTS Wellness examination Mixed hyperlipidemia IFG (impaired fasting glucose) Essential hypertension Surgical History Surgical History Hx of transurethral resection of prostate History of lumbar surgery w/ post-op complicating abscess Family History Family History Mother Family history of malignant neoplasm of stomach Family history of heart disease in male family member before age 55 Father Family history of lung cancer Social History Social History Smoking status: Never smoker Second hand tobacco smoke exposure: No Alcohol intake: current Drinks per week: 4 Substance use: never Substance use type: does not use Do You Feel Safe in your Home?: Yes Lack of Transportation: No Lack of Food: Never True Current Housing: I Have Housing Concerned About Future Housing: No Difficulty Paying Gas/Electric Bills: No Difficulty Paying for Meds: No Currently Unemployed: No Education: Trade/Vocational Certificate Difficulty w/ Childcare or Family Care: No Living arrangements: alone Occupation/Education: retired Gender identity (if verbalized by the patient): Male Sexual Orientation (if Verbalized by the Patient): Straight or Heterosexual Spiritual care concerns: No Meds Home Medications and Allergies Home Medications ?Medication ?Instructions ?Recorded ?Confirmed ?Type aspirin 81 mg tablet,delayed 81 mg PO DAILY 08/23/19 06/06/24 History release (Adult Low Dose Aspirin) lisinopril 5 mg tablet 5 mg PO DAILY #90 tabs 04/16/24 06/06/24 Rx cephalexin 500 mg capsule 500 mg PO Q8H #9 caps 06/07/24 Rx docusate sodium 100 mg capsule 100 mg PO DAILY #30 caps 06/07/24 Rx (Colace) hydrocodone 5 mg-acetaminophen 325 1 - 2 tablet PO Q6H PRN pain #20 06/07/24 Rx mg tablet tabs Allergies Allergy/AdvReac Type Severity Reaction Status Date / Time No Known Allergies Allergy Mild Verified 06/06/24 17:24 Vital Signs Vital Signs - 24 hr 06/07/24 12:57 06/07/24 13:25 06/07/24 13:40 Temperature 98.1 F Pulse Rate 88 80 Respiratory Rate 18 36 H Blood Pressure 131/64 122/58 L 118/50 L Pulse Oximetry 98 91 Oxygen Delivery Oxygen Flow Rate 06/07/24 13:45 06/07/24 14:00 06/07/24 16:57 Temperature 98.1 F 97.2 F L Pulse Rate 81 88 65 Respiratory Rate 36 H 18 18 Blood Pressure 122/58 L 130/66 100/50 L Pulse Oximetry 91 100 96 Oxygen Delivery Nasal Cannula Oxygen Flow Rate 2 06/07/24 20:00 06/07/24 20:00 06/08/24 00:35 Temperature 99 F 98.1 F Pulse Rate 69 56 L Respiratory Rate 20 20 Blood Pressure 103/51 L 107/47 L Pulse Oximetry 100 97 100 Oxygen Delivery Nasal Cannula Oxygen Flow Rate 4 06/08/24 04:00 06/08/24 04:50 06/08/24 05:20 Temperature 96.6 F L Pulse Rate 68 55 L Respiratory Rate 20 Blood Pressure 98/54 L Pulse Oximetry 100 94 Oxygen Delivery Oxygen Flow Rate 06/08/24 08:00 06/08/24 08:02 06/08/24 10:30 Temperature 98.0 F Pulse Rate 66 65 Respiratory Rate 18 Blood Pressure 108/51 L 108/51 L Pulse Oximetry 96 Oxygen Delivery Oxygen Flow Rate 06/08/24 10:35 06/08/24 10:40 Temperature Pulse Rate Respiratory Rate Blood Pressure 116/46 L 118/54 L Pulse Oximetry Oxygen Delivery Oxygen Flow Rate Exam 2 Narrative: General: alert, pleasant, up in the chair. HEENT: normocephalic, atraumatic. Mucous membranes moist. EOMI, PERRLA, bilateral sclera anicteric, no conjunctival injection. Neck supple without JVD, lymphadenopathy, or bruit. Respiratory: clear to ascultation bilaterally. No rales/rhonic/wheezes. Cardiovascular: Regular rate and rhythm, normal S1-S2 upon ascultation. No murmurs, rubs, or clicks. PMI is nondisplaced, capillary refill less than 3 second. Abdomen: round, no pulsatile masses, and nontender. No rebound, no guarding. No CVA tenderness, no hepatosplenomegaly. Bowel sounds present to all four quadrants. No high pitch or tinkling sounds, resonant to percussion. Extremities: No cyanosis, clubbing, or edema present. Pulses are palpable 2/2. Active ROM to all four extremities. Neuro: Alert and orientated x 4. PERRLA. Cranial nerves 2-12 intact without focal deficit. Skin: Warm, dry, and intact, without rash, erythema, or lesion. Pale Psych: pleasant, cooperative, normal speech, normal affect, no hallucinations, no dysarthia Const: General: comfortable Results Labs 06/07/24 13:59 06/07/24 13:59 Labs: Short CBC 06/07/24 Range/Units 13:59 WBC 18.9 H (4.5-10.0) K/mm3 Hgb 11.4 L (14.0-18.0) g/dL Hct 33.6 L (42.0-52.0) % Plt Count 315 (150-375) k/mm3 [facility] 06/07/24 13:59 Sodium 134 L Potassium 4.9 Chloride 106 Carbon Dioxide 22 BUN 20 Creatinine 1.60 H Glucose 184 H Calcium 8.6 Cardiac Enzymes 06/07/24 Range/Units 13:59 Troponin I < 0.012 (0.000-0.034) ng/mL Liver Function 06/07/24 Range/Units 13:59 Total Bilirubin 3.1 H (0.2-1.3) mg/dL AST 36 (17-59) U/L ALT 17 (6-50) U/L Alkaline Phosphatase 60 (38-126) U/L Albumin 3.4 L (3.5-5.1) g/dL Urine 06/07/24 Range/Units 20:37 Urine Color Yellow (Yellow) Urine Appearance Cloudy H (Clear) Urine pH 5.5 (5.0-9.0) Ur Specific [place] 1.026 (1.001-1.035) Urine Protein 1+ H (Negative) mg/dL Urine Glucose (UA) Negative (Negative) mg/dL Quality VTE Prophylaxis VTE prophylaxis: pharmacologic ordered
[2024-06-08 11:41] LABS: Hemoglobin 9.5 g/dL (14.0-18.0); Mean Corpuscular HGB Conc 33.9 g/dl (32-36); Mean Corpuscular Hemoglobin 32.4 pg (26-34); Mean Corpuscular Volume 95.6 fl (80-100); Mean Platelet Volume 10.6 fl (7.4-10.4); Platelet Count Result 258 k/mm3 (150-375); Red Blood Count 2.93 M/mm3 (4.6-6.20); Red Cell Distribution Width 17.9 % (11.5-14.5); White Blood Count 11.7 K/mm3 (4.5-10.0)
[2024-06-08 12:00] LABS: Anion Gap 1 mmol/L (4-12); Blood Urea Nitrogen 13 mg/dL (9-20); Calcium 8.2 mg/dL (8.4-10.2); Carbon Dioxide 25 mmol/L (22-30); Chloride 111 mmol/L (98-107); Estimated CRCL calculation 48 ml/min; Estimated Glomerular Filt Rate > 60; Glucose 99 mg/dL (65-110); Potassium 4.1 mmol/L (3.4-5.0); Sodium 137 mmol/L (137-145)
--- NOTE | 2024-06-08 12:01 | P.PNUR_ITS ---
Progress Note: A&P Assessment and Plan (1) BPH w urinary obs/LUTS: Code(s): N40.1 - Benign prostatic hyperplasia with lower urinary tract symptoms; N13.8 - Other obstructive and reflux uropathy Status: Acute Assessment and Plan: * Doing well POD #2 s/p TURP * voiding better today. PVR 250 cc * wbc improved with rocephin. * if stable anticipate dc tomorrow Subjective Subjective Date/Time Seen: 06/08/24 12:01 Interval history: denies pain, urine clear, NAEO. wbc decreased. denies dysuria or confusion. Review of Systems Constitutional: Constitutional: Reports as per HPI, Reports no additional constitutional complaints, Denies body ache(s) and Denies chills ENT: Reports system reviewed and no additional complaints, except as documented Cardiovascular: Cardiovascular: Reports no additional cardiovascular complaints and Denies chest pain Gastrointestinal: Gastrointestinal: Denies abdominal pain and Denies melena Genitourinary: Genitourinary: Denies no additional male genitourinary complaints Musculoskeletal: Musculoskeletal: Reports no additional musculoskeletal complaints Exam Const: General: cooperative, healthy appearing and comfortable HENMT: Head: normal to inspection, skull fracture palpable, normocephalic and atraumatic : General: Yes bimanual renal exam normal bilaterally, Yes bladder normal to palpation and Yes no CVA tenderness Skin: General skin exam: normal color and no rashes or lesions noted Neuro: General: oriented to person, oriented to place and oriented to time Psych: Appearance: grossly normal Objective Data Vital Signs Vital Signs: Vital Signs - 24 hr 06/07/24 12:57 06/07/24 13:25 06/07/24 13:40 Temperature 36.7 C Pulse Rate 88 80 Respiratory Rate 18 36 H Blood Pressure 131/64 122/58 L 118/50 L Pulse Oximetry 98 91 Oxygen Delivery Oxygen Flow Rate 06/07/24 13:45 06/07/24 14:00 06/07/24 16:57 Temperature 36.7 C 36.2 C L Pulse Rate 81 88 65 Respiratory Rate 36 H 18 18 Blood Pressure 122/58 L 130/66 100/50 L Pulse Oximetry 91 100 96 Oxygen Delivery Nasal Cannula Oxygen Flow Rate 2 06/07/24 20:00 06/07/24 20:00 06/08/24 00:35 Temperature 37.2 C 36.7 C Pulse Rate 69 56 L Respiratory Rate 20 20 Blood Pressure 103/51 L 107/47 L Pulse Oximetry 100 97 100 Oxygen Delivery Nasal Cannula Oxygen Flow Rate 4 06/08/24 04:00 06/08/24 04:50 06/08/24 05:20 Temperature 35.9 C L Pulse Rate 68 55 L Respiratory Rate 20 Blood Pressure 98/54 L Pulse Oximetry 100 94 Oxygen Delivery Oxygen Flow Rate 06/08/24 08:00 06/08/24 08:02 06/08/24 10:30 Temperature 36.7 C Pulse Rate 66 65 Respiratory Rate 18 Blood Pressure 108/51 L 108/51 L Pulse Oximetry 96 Oxygen Delivery Oxygen Flow Rate 06/08/24 10:35 06/08/24 10:40 Temperature Pulse Rate Respiratory Rate Blood Pressure 116/46 L 118/54 L Pulse Oximetry Oxygen Delivery Oxygen Flow Rate Intake/Output Intake/Output: Intake & Output 06/05/24 06/06/24 06/07/24 06/08/24 23:59 23:59 23:59 23:59 Intake Total 390 3018 1740 Output Total 1425 1049 300 Balance -1035 1969 1440 Meds/Results Medications: Active Medications Generic Name Dose Route Start Last Admin Trade Name Freq PRN Reason Stop Dose Admin Hydrocodone Bitart/Acetaminophen 1 tab 06/06/24 15:12 06/06/24 20:33 Hydrocodone/Acetaminophen (*Crx) 5-325 Mg Tablet PO 1 tab Q4H PRN Administration Pain Rated 1-6 Cephalexin HCl 500 mg 06/07/24 09:00 06/07/24 12:19 Cephalexin 500 Mg Capsule PO 500 mg QID VENKATESH Administration Docusate Sodium 100 mg 06/06/24 17:00 06/07/24 17:57 Docusate Sodium 100 Mg Capsule PO Not Given BID VENKATESH Fentanyl Citrate 25 mcg 06/06/24 12:41 Fentanyl Citrate Inj (*Crx) 100 Mcg/2 Ml Vial IV PUSH Q2M PRN Pain Heparin Sodium (Porcine) 5,000 units 06/08/24 06:00 06/08/24 05:26 Heparin Sodium 5,000 Units/Ml Vial SUB-Q 5,000 units Q8HR VENKATESH Administration Hyoscyamine 0.125 mg 06/06/24 15:12 Hyoscyamine Sulfate 0.125 Mg Tablet SUBLINGUAL Q6H PRN Bladder Spasm Sodium Chloride 1,000 mls @ 100 mls/hr 06/07/24 14:25 06/08/24 07:20 Normal Saline Iv IV CONT 100 mls/hr .Q10H VENKATESH Administration Ceftriaxone Sodium 1 gm in 50 mls @ 100 mls/hr 06/07/24 23:00 06/07/24 23:45 Rocephin 1 Gm/Ns 50 Ml IVPB Infused Q24H VENKATESH Infusion Lisinopril 5 mg 06/07/24 09:00 06/07/24 09:19 Lisinopril 5 Mg Tablet PO 5 mg DAILY VENKATESH Administration Morphine Sulfate 2 mg 06/06/24 15:12 Morphine Sulfate (*Crx) 2 Mg/Ml Inj IV PUSH Q2H PRN Pain Rated 7-10 Naloxone HCl 0.1 mg 06/06/24 15:12 Naloxone Hcl 0.4 Mg/Ml Vial IV PUSH Q2M PRN Opiate Reversal Ondansetron HCl 4 mg 06/06/24 12:41 Ondansetron Inj 4 Mg/2 Ml Vial IV PUSH ONCE PRN Nausea Ondansetron HCl 4 mg 06/06/24 15:12 06/07/24 15:20 Ondansetron Inj 4 Mg/2 Ml Vial IV PUSH 4 mg Q12H PRN Administration Nausea And Vomiting Oxycodone HCl 5 mg 06/06/24 12:41 Oxycodone Hcl (*Crx) 5 Mg Tab Ir PO ONCE PRN Pain Radiology Results: ITS Impressions Chest X-Ray 06/07/24 14:30 Impression: Questionable minimal haziness left lung base. Correlate for subtle pneumonia. Abdomen X-Ray 06/07/24 14:42 Impression: 1: Nonobstructive bowel gas pattern. Head CT 06/07/24 15:03 IMPRESSION: 1. Normal aging brain. Chest/Abdomen/Pelvis CT 06/07/24 15:29 IMPRESSION: 1. Bladder wall thickening and surrounding inflammatory stranding consistent with cystitis. Correlate with urinalysis. 2. Small region of hypoenhancement at the inferior spleen and a few additional 3. Multiple small hypoenhancing lesions at the periphery of the spleen with larger peripheral wedge-shaped region of hypoenhancement at the caudal spleen most consistent with splenic infarcts. 4. Chronic dilated tip of the appendix with mural calcification consistent with chronic mucocele. Labs Labs: Laboratory Results - last 24 hr 06/07/24 06/07/24 06/07/24 13:26 13:59 15:54 WBC 18.9 H RBC 3.55 L Hgb 11.4 L Hct 33.6 L MCV 94.6 MCH 32.1 MCHC 33.9 RDW 18.0 H Plt Count 315 MPV 10.4 Puncture Site Left brachial ABG pH 7.432 ABG pCO2 30.2 L ABG pO2 78.4 L ABG PO2/FiO2 Ratio 2.80 ABG HCO3 19.7 L ABG O2 Saturation 96.1 ABG O2 Content 15.0 L ABG Base Excess -3.7 A-a Gradient 85.6 Oxyhemoglobin 94.9 Total Hemoglobin 11.2 L O2 Delivery Device Nasal cannula O2 Liters/Min 2.0 FiO2 28 Sodium 134 L Potassium 4.9 Chloride 106 Carbon Dioxide 22 Anion Gap 6 BUN 20 Creatinine 1.60 H Estim Creat Clear Calc 28 Estimated GFR 41 L Glucose 184 H POC Capillary Glucose 176 H Lactic Acid 3.4 H Calcium 8.6 Total Bilirubin 3.1 H AST 36 ALT 17 Alkaline Phosphatase 60 Troponin I < 0.012 NT-Pro-B Natriuret Pep 401 H Total Protein 6.0 L Albumin 3.4 L Urine Color Urine Appearance Urine pH Ur Specific [place] Urine Protein Urine Glucose (UA) Urine Ketones Ur Blood (Man) Urine Nitrate Urine Bilirubin Urine Urobilinogen Ur Leukocyte Esterase Urine RBC Urine WBC Ur Squamous Epith Cells Urine Bacteria Urine Casts 06/07/24 06/07/24 06/08/24 17:58 20:37 11:30 WBC 11.7 H RBC 2.93 L Hgb 9.5 L Hct 28.0 L MCV 95.6 MCH 32.4 MCHC 33.9 RDW 17.9 H Plt Count 258 MPV 10.6 H Puncture Site ABG pH ABG pCO2 ABG pO2 ABG PO2/FiO2 Ratio ABG HCO3 ABG O2 Saturation ABG O2 Content ABG Base Excess A-a Gradient Oxyhemoglobin Total Hemoglobin O2 Delivery Device O2 Liters/Min FiO2 Sodium 137 Potassium 4.1 Chloride 111 H Carbon Dioxide 25 Anion Gap 1 L BUN 13 D Creatinine 0.90 Estim Creat Clear Calc 48 Estimated GFR > 60 Glucose 99 POC Capillary Glucose Lactic Acid 2.2 H Calcium 8.2 L Total Bilirubin AST ALT Alkaline Phosphatase Troponin I NT-Pro-B Natriuret Pep Total Protein Albumin Urine Color Yellow Urine Appearance Cloudy H Urine pH 5.5 Ur Specific [place] 1.026 Urine Protein 1+ H Urine Glucose (UA) Negative Urine Ketones Negative Ur Blood (Man) 3+ H Urine Nitrate Negative Urine Bilirubin Negative Urine Urobilinogen 1.0 Ur Leukocyte Esterase 2+ H Urine RBC >100 H Urine WBC 21-50 H Ur Squamous Epith Cells Occasional Urine Bacteria None seen Urine Casts 0-2
[2024-06-09] VITALS (9 sets, daily range): BP systolic 125–148; BP diastolic 57–60; PULSE 65–94; RESP 16–18; TEMP 37.3–38.1; O2SAT 95–100
[2024-06-09] MEDS: HEPARIN SODIUM 5,000 UNITS/ML VIAL 5000 UNITS SUB-Q ×3 (06:13→21:00)
[2024-06-09 06:38] LABS: Basophils Absolute Auto 0.1 K/mm3 (0.0-0.1); Basophils Percent Auto 0.5 % (0.2-1.2); Eosinophils Absolute Auto 0.3 K/mm3 (0-0.3); Eosinophils Percent Auto 2.1 % (0-4.4); Hematocrit 31.5 % (42.0-52.0); Hemoglobin 10.4 g/dL (14.0-18.0); Immature Granulocyte Percent A 1.9 % (0-0.5); Lymphocytes Absolute Auto 2.35 K/mm3 (0.9-3.2); Lymphocytes Percent Auto 14.7 % (18.3-44.2); Mean Corpuscular Hemoglobin 31.9 pg (26-34); Mean Corpuscular Volume 96.6 fl (80-100); Monocytes Absolute Auto 1.8 K/mm3 (0.1-0.6); Monocytes Percent Auto 11.5 % (2.6-8.5); Neutrophils Percent Auto 69.3 % (45.5-73.1); Platelet Count Result 291 k/mm3 (150-375); Red Blood Count 3.26 M/mm3 (4.6-6.20); Red Cell Distribution Width 17.7 % (11.5-14.5); White Blood Count 15.9 K/mm3 (4.5-10.0)
[2024-06-09 06:59] LABS: Anion Gap 3 mmol/L (4-12); Blood Urea Nitrogen 12 mg/dL (9-20); Calcium 8.9 mg/dL (8.4-10.2); Carbon Dioxide 23 mmol/L (22-30); Chloride 109 mmol/L (98-107); Estimated CRCL calculation 54 ml/min; Estimated Glomerular Filt Rate > 60; Glucose 105 mg/dL (65-110); Potassium 4.5 mmol/L (3.4-5.0); Sodium 135 mmol/L (137-145)
--- NOTE | 2024-06-09 10:22 | P.PNUR_ITS ---
Progress Note: A&P Assessment and Plan (1) BPH w urinary obs/LUTS: Code(s): N40.1 - Benign prostatic hyperplasia with lower urinary tract symptoms; N13.8 - Other obstructive and reflux uropathy Status: Acute Assessment and Plan: * Doing well POD #3 s/p TURP * voiding better today. PVR <250 cc * wbc worsened with rocephin. * bothered by worsening incontinence. * repeat urine culture sent. ua suspicious for UTI, prior culture form october with enterococcus, will dc rocephin and start unasyn for coverage * if stable anticipate dc tomorrow Subjective Subjective Date/Time Seen: 06/09/24 10:22 Interval history: denies pain, urine clear, NAEO. wbc increased to 15.4. denies dysuria or confusion. Has incontinencne, PVR's low. urge incontinence worsened. 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 Review of Systems Constitutional: Constitutional: Reports as per HPI, Reports no additional constitutional complaints, Denies body ache(s) and Denies chills ENT: Reports system reviewed and no additional complaints, except as documented Cardiovascular: Cardiovascular: Reports no additional cardiovascular complaints and Denies chest pain Gastrointestinal: Gastrointestinal: Denies abdominal pain and Denies melena Genitourinary: Genitourinary: Denies no additional male genitourinary complaints Musculoskeletal: Musculoskeletal: Reports no additional musculoskeletal complaints Exam Const: General: cooperative, healthy appearing and comfortable HENMT: Head: normal to inspection, skull fracture palpable, normocephalic and atraumatic : General: Yes bimanual renal exam normal bilaterally, Yes bladder normal to palpation and Yes no CVA tenderness Skin: General skin exam: normal color and no rashes or lesions noted Neuro: General: oriented to person, oriented to place and oriented to time Psych: Appearance: grossly normal Objective Data Vital Signs Vital Signs: Vital Signs - 24 hr 06/08/24 10:30 06/08/24 10:35 06/08/24 10:40 Temperature Pulse Rate Respiratory Rate Blood Pressure 108/51 L 116/46 L 118/54 L Pulse Oximetry 06/08/24 12:00 06/08/24 12:02 06/08/24 16:00 Temperature 37.1 C 37.2 C Pulse Rate 71 71 76 Respiratory Rate 18 20 Blood Pressure 114/49 L 117/52 L Pulse Oximetry 96 98 06/08/24 16:02 06/08/24 20:00 06/08/24 22:30 Temperature 37.1 C Pulse Rate 75 68 73 Respiratory Rate 18 Blood Pressure 107/36 L Pulse Oximetry 95 06/09/24 00:00 06/09/24 04:00 06/09/24 04:25 Temperature 37.3 C Pulse Rate 65 79 75 Respiratory Rate 16 Blood Pressure 125/57 L Pulse Oximetry 97 06/09/24 08:00 Temperature Pulse Rate 75 Respiratory Rate Blood Pressure Pulse Oximetry Intake/Output Intake/Output: Intake & Output 06/06/24 06/07/24 06/08/24 06/09/24 23:59 23:59 23:59 23:59 Intake Total 390 3018 2217 490 Output Total 1425 1049 300 100 Balance -1035 1969 1917 390 Meds/Results Medications: Active Medications Generic Name Dose Route Start Last Admin Trade Name Freq PRN Reason Stop Dose Admin Hydrocodone Bitart/Acetaminophen 1 tab 06/06/24 15:12 06/06/24 20:33 Hydrocodone/Acetaminophen (*Crx) 5-325 Mg Tablet PO 1 tab Q4H PRN Administration Pain Rated 1-6 Cephalexin HCl 500 mg 06/07/24 09:00 06/07/24 12:19 Cephalexin 500 Mg Capsule PO 500 mg QID [facility] Administration Docusate Sodium 100 mg 06/06/24 17:00 06/08/24 17:44 Docusate Sodium 100 Mg Capsule PO Not Given BID [facility] Fentanyl Citrate 25 mcg 06/06/24 12:41 Fentanyl Citrate Inj (*Crx) 100 Mcg/2 Ml Vial IV PUSH Q2M PRN Pain Heparin Sodium (Porcine) 5,000 units 06/08/24 06:00 06/09/24 06:13 Heparin Sodium 5,000 Units/Ml Vial SUB-Q 5,000 units Q8HR [facility] Administration Hyoscyamine 0.125 mg 06/06/24 15:12 Hyoscyamine Sulfate 0.125 Mg Tablet SUBLINGUAL Q6H PRN Bladder Spasm Ceftriaxone Sodium 1 gm in 50 mls @ 100 mls/hr 06/07/24 23:00 06/08/24 22:00 Rocephin 1 Gm/Ns 50 Ml IVPB 100 mls/hr Q24H [facility] Administration Lisinopril 5 mg 06/07/24 09:00 06/07/24 09:19 Lisinopril 5 Mg Tablet PO 5 mg DAILY [facility] Administration Morphine Sulfate 2 mg 06/06/24 15:12 Morphine Sulfate (*Crx) 2 Mg/Ml Inj IV PUSH Q2H PRN Pain Rated 7-10 Naloxone HCl 0.1 mg 06/06/24 15:12 Naloxone Hcl 0.4 Mg/Ml Vial IV PUSH Q2M PRN Opiate Reversal Ondansetron HCl 4 mg 06/06/24 12:41 Ondansetron Inj 4 Mg/2 Ml Vial IV PUSH ONCE PRN Nausea Ondansetron HCl 4 mg 06/06/24 15:12 06/07/24 15:20 Ondansetron Inj 4 Mg/2 Ml Vial IV PUSH 4 mg Q12H PRN Administration Nausea And Vomiting Oxycodone HCl 5 mg 06/06/24 12:41 Oxycodone Hcl (*Crx) 5 Mg Tab Ir PO ONCE PRN Pain Radiology Results: ITS Impressions Chest X-Ray 06/07/24 14:30 Impression: Questionable minimal haziness left lung base. Correlate for subtle pneumonia. Abdomen X-Ray 06/07/24 14:42 Impression: 1: Nonobstructive bowel gas pattern. Head CT 06/07/24 15:03 IMPRESSION: 1. Normal aging brain. Chest/Abdomen/Pelvis CT 06/07/24 15:29 IMPRESSION: 1. Bladder wall thickening and surrounding inflammatory stranding consistent with cystitis. Correlate with urinalysis. 2. Small region of hypoenhancement at the inferior spleen and a few additional 3. Multiple small hypoenhancing lesions at the periphery of the spleen with larger peripheral wedge-shaped region of hypoenhancement at the caudal spleen most consistent with splenic infarcts. 4. Chronic dilated tip of the appendix with mural calcification consistent with chronic mucocele. Venous Doppler Study 06/08/24 16:40 IMPRESSION: No evidence of deep venous thrombosis of the lower extremities Labs Labs: Laboratory Results - last 24 hr 06/08/24 06/09/24 11:30 05:59 WBC 11.7 H 15.9 H RBC 2.93 L 3.26 L Hgb 9.5 L 10.4 L Hct 28.0 L 31.5 L MCV 95.6 96.6 MCH 32.4 31.9 MCHC 33.9 33.0 RDW 17.9 H 17.7 H Plt Count 258 291 MPV 10.6 H 11.0 H Immature Gran % (Auto) 1.9 H Neut % (Auto) 69.3 Lymph % (Auto) 14.7 L [place] % (Auto) 11.5 H Eos % (Auto) 2.1 Baso % (Auto) 0.5 Lymph # (Auto) 2.35 [place] # (Auto) 1.8 H Eos # (Auto) 0.3 Baso # (Auto) 0.1 Abs Immat Gran (auto) 0.30 H Absolute Neuts (auto) 11.0 H Absolute Nucleated RBC 0.000 Nucleated RBC % 0.0 Sodium 137 135 L Potassium 4.1 4.5 Chloride 111 H 109 H Carbon Dioxide 25 23 Anion Gap 1 L 3 L BUN 13 D 12 Creatinine 0.90 0.80 Estim Creat Clear Calc 48 54 Estimated GFR > 60 > 60 Glucose 99 105 Calcium 8.2 L 8.9
[2024-06-09] MEDS: AMPICILLIN SULB 1.5 GM/NS 50ML 1.5 GM/50 ML VIAL IVPB ×2 (13:33→18:40)
--- NOTE | 2024-06-09 13:54 | PM.IMPN ---
Progress Note: A&P Assessment and Plan (1) UTI (urinary tract infection): Qualifiers: Hematuria presence: without hematuria Code(s): N39.0 - Urinary tract infection, site not specified Status: Inactive Assessment and Plan: Patient was found to have urosepsis with leukocytosis of18.9 Lactic acid and hypotension resolved with fluid bolus on ampicillin IV CMP and CBC in the morning to monitor slight increase in WBC today (2) ROBIN (acute kidney injury): Code(s): N17.9 - Acute kidney failure, unspecified Status: Acute Assessment and Plan: Baseline 0.9 2 L fluid bolus Avoid nephrotoxic medications Hold lisinopril Repeat BMP in the morning (3) Sepsis: Code(s): A41.9 - Sepsis, unspecified organism Status: Acute Assessment and Plan: Patient started on Zosyn however due to his ROBIN and receiving contrast he is given low-dose Zosyn, please re-evaluate creatinine and leukocytosis in the morning to see if he can be on standard Zosyn dose Patient found to have urosepsis changed the Zosyn to Rocephin then changed to Unasin per urology 06/09 (4) 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 Multiple small hypoenhancing lesions at the periphery of the spleen with larger peripheral wedge-shaped region of hypoenhancement at the caudal spleen most consistent with splenic infarcts. EKG shows normal sinus rhythm Bilateral lower extremity Venous Dopplers ordered SubQ heparin q.8 Time Spent With Patient Time with patient: Greater than 35 minutes Subjective Date/time seen: 06/09/24 13:54 Interval history: consult. pt is seen and examined. he is in bed, denies pain. Incontinent- states that urology possibly will do botox bladder injections- no no discharge today. VS reviewed and stable. wbc increased to 15.4. Pt is given IS-continues to be on IV antibiotics. Review of Systems Review of Systems: 12 systems were reviewed and are negative except for as per HPI. Exam Narrative: General: alert, pleasant, in bed HEENT: normocephalic, atraumatic. Mucous membranes moist. EOMI, PERRLA, bilateral sclera anicteric, no conjunctival injection. Neck supple without JVD, lymphadenopathy, or bruit. Respiratory: clear to ascultation bilaterally. No rales/rhonic/wheezes. Cardiovascular: Regular rate and rhythm, normal S1-S2 upon auscultation. No murmurs, rubs, or clicks. PMI is nondisplaced, capillary refill less than 3 second. Abdomen: round, no pulsatile masses, and nontender. No rebound, no guarding. No CVA tenderness, no hepatosplenomegaly. Bowel sounds present to all four quadrants. No high pitch or tinkling sounds, resonant to percussion. Extremities: No cyanosis, clubbing, or edema present. Pulses are palpable 2/2. Active ROM to all four extremities. Neuro: Alert and orientated x 4. PERRLA. Cranial nerves 2-12 intact without focal deficit. Skin: Warm, dry, and intact, without rash, erythema, or lesion. Pale Psych: pleasant, cooperative, normal speech, normal affect, no hallucinations, no dysarthia Const: General: comfortable Objective Data Vital Signs Vital Signs: Vital Signs - 24 hr 06/08/24 16:00 06/08/24 16:02 06/08/24 20:00 Temperature 99.0 F Pulse Rate 76 75 68 Respiratory Rate 20 Blood Pressure 117/52 L Pulse Oximetry 98 06/08/24 22:30 06/09/24 00:00 06/09/24 04:00 Temperature 98.7 F Pulse Rate 73 65 79 Respiratory Rate 18 Blood Pressure 107/36 L Pulse Oximetry 95 06/09/24 04:25 06/09/24 08:00 06/09/24 12:02 Temperature 99.2 F Pulse Rate 75 75 94 Respiratory Rate 16 Blood Pressure 125/57 L Pulse Oximetry 97 Intake/Output Intake/Output: Intake & Output 06/06/24 06/07/24 06/08/24 06/09/24 23:59 23:59 23:59 23:59 Intake Total 390 3018 2217 490 Output Total 1425 1049 300 100 Balance -1035 1969 1917 390 Meds/Results Medications: Active Medications Generic Name Dose Route Start Last Admin Trade Name Freq PRN Reason Stop Dose Admin Hydrocodone Bitart/Acetaminophen 1 tab 06/06/24 15:12 06/06/24 20:33 Hydrocodone/Acetaminophen (*Crx) 5-325 Mg Tablet PO 1 tab Q4H PRN Administration Pain Rated 1-6 Cephalexin HCl 500 mg 06/07/24 09:00 06/07/24 12:19 Cephalexin 500 Mg Capsule PO 500 mg QID [facility] Administration Docusate Sodium 100 mg 06/06/24 17:00 06/09/24 13:36 Docusate Sodium 100 Mg Capsule PO Not Given BID [facility] Fentanyl Citrate 25 mcg 06/06/24 12:41 Fentanyl Citrate Inj (*Crx) 100 Mcg/2 Ml Vial IV PUSH Q2M PRN Pain Heparin Sodium (Porcine) 5,000 units 06/08/24 06:00 06/09/24 13:35 Heparin Sodium 5,000 Units/Ml Vial SUB-Q 5,000 units Q8HR [facility] Administration Hyoscyamine 0.125 mg 06/06/24 15:12 Hyoscyamine Sulfate 0.125 Mg Tablet SUBLINGUAL Q6H PRN Bladder Spasm Ampicillin Sodium/Sulbactam Sodium 1.5 gm in 50 mls @ 100 mls/hr 06/09/24 10:30 06/09/24 13:33 Unasyn 1.5 Gm/Ns 50 Ml IVPB 100 mls/hr Q6HR [facility] Administration Lisinopril 5 mg 06/07/24 09:00 06/07/24 09:19 Lisinopril 5 Mg Tablet PO 5 mg DAILY [facility] Administration Morphine Sulfate 2 mg 06/06/24 15:12 Morphine Sulfate (*Crx) 2 Mg/Ml Inj IV PUSH Q2H PRN Pain Rated 7-10 Naloxone HCl 0.1 mg 06/06/24 15:12 Naloxone Hcl 0.4 Mg/Ml Vial IV PUSH Q2M PRN Opiate Reversal Ondansetron HCl 4 mg 06/06/24 12:41 Ondansetron Inj 4 Mg/2 Ml Vial IV PUSH ONCE PRN Nausea Ondansetron HCl 4 mg 06/06/24 15:12 06/07/24 15:20 Ondansetron Inj 4 Mg/2 Ml Vial IV PUSH 4 mg Q12H PRN Administration Nausea And Vomiting Oxycodone HCl 5 mg 06/06/24 12:41 Oxycodone Hcl (*Crx) 5 Mg Tab Ir PO ONCE PRN Pain Radiology Results: ITS Impressions Chest X-Ray 06/07/24 14:30 Impression: Questionable minimal haziness left lung base. Correlate for subtle pneumonia. Abdomen X-Ray 06/07/24 14:42 Impression: 1: Nonobstructive bowel gas pattern. Head CT 06/07/24 15:03 IMPRESSION: 1. Normal aging brain. Chest/Abdomen/Pelvis CT 06/07/24 15:29 IMPRESSION: 1. Bladder wall thickening and surrounding inflammatory stranding consistent with cystitis. Correlate with urinalysis. 2. Small region of hypoenhancement at the inferior spleen and a few additional 3. Multiple small hypoenhancing lesions at the periphery of the spleen with larger peripheral wedge-shaped region of hypoenhancement at the caudal spleen most consistent with splenic infarcts. 4. Chronic dilated tip of the appendix with mural calcification consistent with chronic mucocele. Venous Doppler Study 06/08/24 16:40 IMPRESSION: No evidence of deep venous thrombosis of the lower extremities Labs Labs: Laboratory Results - last 24 hr 06/09/24 05:59 WBC 15.9 H RBC 3.26 L Hgb 10.4 L Hct 31.5 L MCV 96.6 MCH 31.9 MCHC 33.0 RDW 17.7 H Plt Count 291 MPV 11.0 H Immature Gran % (Auto) 1.9 H Neut % (Auto) 69.3 Lymph % (Auto) 14.7 L [place] % (Auto) 11.5 H Eos % (Auto) 2.1 Baso % (Auto) 0.5 Lymph # (Auto) 2.35 [place] # (Auto) 1.8 H Eos # (Auto) 0.3 Baso # (Auto) 0.1 Abs Immat Gran (auto) 0.30 H Absolute Neuts (auto) 11.0 H Absolute Nucleated RBC 0.000 Nucleated RBC % 0.0 Sodium 135 L Potassium 4.5 Chloride 109 H Carbon Dioxide 23 Anion Gap 3 L BUN 12 Creatinine 0.80 Estim Creat Clear Calc 54 Estimated GFR > 60 Glucose 105 Calcium 8.9 Quality VTE Prophylaxis VTE prophylaxis: pharmacologic ordered
[2024-06-09 15:29] LABS: Lactic Acid Reflex 1.1 mmol/L (0.7-2.0)
[2024-06-09] MEDS: HYDROcodone/acetaminophen (*CRX) 5-325 MG TABLET 1 TAB PO (21:03)
[2024-06-10] VITALS: PULSE 64
[2024-06-10] MEDS: AMPICILLIN SULB 1.5 GM/NS 50ML 1.5 GM/50 ML VIAL IVPB ×3 (00:30→12:36)
[2024-06-10 04:00] VITALS: PULSE 61
[2024-06-10] MEDS: HEPARIN SODIUM 5,000 UNITS/ML VIAL 5000 UNITS SUB-Q (05:00)
--- NOTE | 2024-06-10 05:53 | P.PNUR_ITS ---
Progress Note: A&P Assessment and Plan (1) BPH w urinary obs/LUTS: Code(s): N40.1 - Benign prostatic hyperplasia with lower urinary tract symptoms; N13.8 - Other obstructive and reflux uropathy Status: Acute (2) Sepsis: Code(s): A41.9 - Sepsis, unspecified organism Status: Acute Assessment and Plan: * Patient continues complain of urinary frequency and urgency -to be expected at this point following TURP * Await repeat urine culture. If negative and serum white blood cell count is improved will consider discharge on Augmentin Subjective Subjective Date/Time Seen: 06/10/24 05:53 Interval history: Continues to report urinary frequency/urgency - as expected Review of Systems Cardiovascular: Cardiovascular: Denies chest pain, Denies lightheadedness, Denies palpitations and Denies dyspnea Respiratory: Respiratory: Denies dyspnea Gastrointestinal: Gastrointestinal: Denies diarrhea, Denies nausea and Denies vomiting Genitourinary: Genitourinary: Denies hematuria, Denies dysuria and Reports urinary frequency Endocrine: Endocrine: Denies palpitations Exam Const: General: no acute distress Resp: Effort & Inspection: normal respiratory effort GI: Inspection: non-distended GI Palp: No abdominal tenderness and No Guard ing due to palpation present (GI) Auscultation: normal bowel sounds Objective Data Vital Signs Vital Signs: Vital Signs - 24 hr 06/09/24 08:00 06/09/24 12:02 06/09/24 14:00 Temperature 100.6 F H Pulse Rate 75 94 77 Respiratory Rate 18 Blood Pressure 127/58 L Pulse Oximetry 95 Oxygen Delivery 06/09/24 16:00 06/09/24 20:00 06/09/24 20:00 Temperature Pulse Rate 75 74 Respiratory Rate Blood Pressure Pulse Oximetry Oxygen Delivery Room Air 06/09/24 21:32 06/10/24 00:00 Temperature 99.5 F Pulse Rate 87 64 Respiratory Rate 16 Blood Pressure 148/60 H Pulse Oximetry 100 Oxygen Delivery Intake/Output Intake/Output: Intake & Output 06/07/24 06/08/24 06/09/24 06/10/24 23:59 23:59 23:59 23:59 Intake Total 3018 2217 1546 50 Output Total 1049 300 100 Balance 1969 1917 1446 50 Meds/Results Medications: Active Medications Generic Name Dose Route Start Last Admin Trade Name Freq PRN Reason Stop Dose Admin Hydrocodone Bitart/Acetaminophen 1 tab 06/06/24 15:12 06/09/24 21:03 Hydrocodone/Acetaminophen (*Crx) 5-325 Mg Tablet PO 1 tab Q4H PRN Administration Pain Rated 1-6 Cephalexin HCl 500 mg 06/07/24 09:00 06/07/24 12:19 Cephalexin 500 Mg Capsule PO 500 mg QID [facility] Administration Docusate Sodium 100 mg 06/06/24 17:00 06/09/24 18:58 Docusate Sodium 100 Mg Capsule PO Not Given BID [facility] Fentanyl Citrate 25 mcg 06/06/24 12:41 Fentanyl Citrate Inj (*Crx) 100 Mcg/2 Ml Vial IV PUSH Q2M PRN Pain Heparin Sodium (Porcine) 5,000 units 06/08/24 06:00 06/10/24 05:00 Heparin Sodium 5,000 Units/Ml Vial SUB-Q 5,000 units Q8HR [facility] Administration Hyoscyamine 0.125 mg 06/06/24 15:12 Hyoscyamine Sulfate 0.125 Mg Tablet SUBLINGUAL Q6H PRN Bladder Spasm Ampicillin Sodium/Sulbactam Sodium 1.5 gm in 50 mls @ 100 mls/hr 06/09/24 10:30 06/10/24 05:00 Unasyn 1.5 Gm/Ns 50 Ml IVPB 100 mls/hr Q6HR [facility] Administration Lisinopril 5 mg 06/07/24 09:00 06/07/24 09:19 Lisinopril 5 Mg Tablet PO 5 mg DAILY [facility] Administration Morphine Sulfate 2 mg 06/06/24 15:12 Morphine Sulfate (*Crx) 2 Mg/Ml Inj IV PUSH Q2H PRN Pain Rated 7-10 Naloxone HCl 0.1 mg 06/06/24 15:12 Naloxone Hcl 0.4 Mg/Ml Vial IV PUSH Q2M PRN Opiate Reversal Ondansetron HCl 4 mg 06/06/24 12:41 Ondansetron Inj 4 Mg/2 Ml Vial IV PUSH ONCE PRN Nausea Ondansetron HCl 4 mg 06/06/24 15:12 06/07/24 15:20 Ondansetron Inj 4 Mg/2 Ml Vial IV PUSH 4 mg Q12H PRN Administration Nausea And Vomiting Oxycodone HCl 5 mg 06/06/24 12:41 Oxycodone Hcl (*Crx) 5 Mg Tab Ir PO ONCE PRN Pain Radiology Results: ITS Impressions Chest X-Ray 06/07/24 14:30 Impression: Questionable minimal haziness left lung base. Correlate for subtle pneumonia. Abdomen X-Ray 06/07/24 14:42 Impression: 1: Nonobstructive bowel gas pattern. Head CT 06/07/24 15:03 IMPRESSION: 1. Normal aging brain. Chest/Abdomen/Pelvis CT 06/07/24 15:29 IMPRESSION: 1. Bladder wall thickening and surrounding inflammatory stranding consistent with cystitis. Correlate with urinalysis. 2. Small region of hypoenhancement at the inferior spleen and a few additional 3. Multiple small hypoenhancing lesions at the periphery of the spleen with larger peripheral wedge-shaped region of hypoenhancement at the caudal spleen most consistent with splenic infarcts. 4. Chronic dilated tip of the appendix with mural calcification consistent with chronic mucocele. Venous Doppler Study 06/08/24 16:40 IMPRESSION: No evidence of deep venous thrombosis of the lower extremities Labs Labs: Laboratory Results - last 24 hr 06/09/24 06/09/24 05:59 15:13 WBC 15.9 H RBC 3.26 L Hgb 10.4 L Hct 31.5 L MCV 96.6 MCH 31.9 MCHC 33.0 RDW 17.7 H Plt Count 291 MPV 11.0 H Immature Gran % (Auto) 1.9 H Neut % (Auto) 69.3 Lymph % (Auto) 14.7 L [place] % (Auto) 11.5 H Eos % (Auto) 2.1 Baso % (Auto) 0.5 Lymph # (Auto) 2.35 [place] # (Auto) 1.8 H Eos # (Auto) 0.3 Baso # (Auto) 0.1 Abs Immat Gran (auto) 0.30 H Absolute Neuts (auto) 11.0 H Absolute Nucleated RBC 0.000 Nucleated RBC % 0.0 Sodium 135 L Potassium 4.5 Chloride 109 H Carbon Dioxide 23 Anion Gap 3 L BUN 12 Creatinine 0.80 Estim Creat Clear Calc 54 Estimated GFR > 60 Glucose 105 Lactic Acid 1.1 Calcium 8.9
[2024-06-10 06:00] VITALS: BP 137/63; PULSE 73; RESP 18; TEMP 37.3; O2SAT 97
[2024-06-10 06:50] LABS: Basophils Absolute Auto 0.1 K/mm3 (0.0-0.1); Basophils Percent Auto 0.4 % (0.2-1.2); Eosinophils Absolute Auto 0.3 K/mm3 (0-0.3); Eosinophils Percent Auto 2.5 % (0-4.4); Hemoglobin 9.8 g/dL (14.0-18.0); Immature Granulocyte Percent A 2.4 % (0-0.5); Lymphocytes Absolute Auto 2.08 K/mm3 (0.9-3.2); Lymphocytes Percent Auto 16.5 % (18.3-44.2); Mean Corpuscular HGB Conc 33.8 g/dl (32-36); Mean Corpuscular Volume 94.8 fl (80-100); Mean Platelet Volume 10.9 fl (7.4-10.4); Monocytes Absolute Auto 1.6 K/mm3 (0.1-0.6); Monocytes Percent Auto 12.7 % (2.6-8.5); Neutrophils Absolute Auto 8.3 K/mm3 (1.3-6.7); Neutrophils Percent Auto 65.5 % (45.5-73.1); Platelet Count Result 288 k/mm3 (150-375); Red Blood Count 3.06 M/mm3 (4.6-6.20); Red Cell Distribution Width 17.9 % (11.5-14.5); White Blood Count 12.6 K/mm3 (4.5-10.0)
[2024-06-10 07:08] LABS: Anion Gap 0 mmol/L (4-12); Blood Urea Nitrogen 10 mg/dL (9-20); Calcium 8.8 mg/dL (8.4-10.2); Carbon Dioxide 25 mmol/L (22-30); Chloride 108 mmol/L (98-107); Estimated CRCL calculation 61 ml/min; Estimated Glomerular Filt Rate > 60; Glucose 109 mg/dL (65-110); Potassium 4.2 mmol/L (3.4-5.0); Sodium 133 mmol/L (137-145)
[2024-06-10 08:00] VITALS: PULSE 81
--- NOTE | 2024-06-10 09:56 | P.CONIM_ITS ---
Assessment and Plan Assessment and plan (1) UTI (urinary tract infection): Qualifiers: Hematuria presence: without hematuria Code(s): N39.0 - Urinary tract infection, site not specified Status: Inactive Assessment and Plan: Patient was found to have urosepsis with leukocytosis of18.9 Lactic acid and hypotension resolved with fluid bolus on ampicillin IV CMP and CBC in the morning to monitor WBC improved today urology managing care- * Patient continues complain of urinary frequency and urgency -to be expected at this point following TURP * Await repeat urine culture. If negative and serum white blood cell count is improved will consider discharge on Augmentin (2) ROBIN (acute kidney injury): Code(s): N17.9 - Acute kidney failure, unspecified Status: Acute Assessment and Plan: Baseline 0.9 2 L fluid bolus Avoid nephrotoxic medications Hold lisinopril Repeat BMP in the morning (3) Sepsis: Code(s): A41.9 - Sepsis, unspecified organism Status: Acute Assessment and Plan: Patient started on Zosyn however due to his ROBIN and receiving contrast he is given low-dose Zosyn, please re-evaluate creatinine and leukocytosis in the morning to see if he can be on standard Zosyn dose Patient found to have urosepsis changed the Zosyn to Rocephin then changed to Unasin per urology 06/09 WBC improved today (4) 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 Multiple small hypoenhancing lesions at the periphery of the spleen with larger peripheral wedge-shaped region of hypoenhancement at the caudal spleen most consistent with splenic infarcts. EKG shows normal sinus rhythm Bilateral lower extremity Venous Dopplers ordered SubQ heparin q.8 HPI Date of Consult Consult date: 06/10/24 Requesting Physician: Gilmar Pickett MD Primary Care Provider: Nikolas Dockery MD Consult Narrative Reason for consult: [email or web address] Narrative: pt is following with urology. Recent TURP procedure. Patient complaining of urinary frequency and urgency Urine culture pending. If wbc continues to improve- which it had been- discharge on Augmentin Review of Systems 2 Review of Systems: 12 systems were reviewed and are negativ e except for as per HPI. PMFSH Past Medical History Medical History Chronic constipation BPH w urinary obs/LUTS Wellness examination Mixed hyperlipidemia IFG (impaired fasting glucose) Essential hypertension Surgical History Surgical History Hx of transurethral resection of prostate History of lumbar surgery w/ post-op complicating abscess Family History Family History Mother Family history of malignant neoplasm of stomach Family history of heart disease in male family member before age 55 Father Family history of lung cancer Social History Social History Smoking status: Never smoker Second hand tobacco smoke exposure: No Alcohol intake: current Drinks per week: 4 Substance use: never Substance use type: does not use Do You Feel Safe in your Home?: Yes Lack of Transportation: No Lack of Food: Never True Current Housing: I Have Housing Concerned About Future Housing: No Difficulty Paying Gas/Electric Bills: No Difficulty Paying for Meds: No Currently Unemployed: No Education: Trade/Vocational Certificate Difficulty w/ Childcare or Family Care: No Living arrangements: alone Occupation/Education: retired Gender identity (if verbalized by the patient): Male Sexual Orientation (if Verbalized by the Patient): Straight or Heterosexual Spiritual care concerns: No Meds Home Medications and Allergies Home Medications ?Medication ?Instructions ?Recorded ?Confirmed ?Type aspirin 81 mg tablet,delayed 81 mg PO DAILY 08/23/19 06/06/24 History release (Adult Low Dose Aspirin) lisinopril 5 mg tablet 5 mg PO DAILY #90 tabs 04/16/24 06/06/24 Rx cephalexin 500 mg capsule 500 mg PO Q8H #9 caps 06/07/24 Rx docusate sodium 100 mg capsule 100 mg PO DAILY #30 caps 06/07/24 Rx (Colace) hydrocodone 5 mg-acetaminophen 325 1 - 2 tablet PO Q6H PRN pain #20 06/07/24 Rx mg tablet tabs Allergies Allergy/AdvReac Type Severity Reaction Status Date / Time No Known Allergies Allergy Mild Verified 06/06/24 17:24 Vital Signs Vital Signs - 24 hr 06/09/24 12:02 06/09/24 14:00 06/09/24 16:00 Temperature 100.6 F H Pulse Rate 94 77 75 Respiratory Rate 18 Blood Pressure 127/58 L Pulse Oximetry 95 Oxygen Delivery 06/09/24 20:00 06/09/24 20:00 06/09/24 21:32 Temperature 99.5 F Pulse Rate 74 87 Respiratory Rate 16 Blood Pressure 148/60 H Pulse Oximetry 100 Oxygen Delivery Room Air 06/10/24 00:00 06/10/24 04:00 06/10/24 06:00 Temperature 99.1 F Pulse Rate 64 61 73 Respiratory Rate 18 Blood Pressure 137/63 Pulse Oximetry 97 Oxygen Delivery Exam 2 Narrative: General: alert, pleasant, in bed HEENT: normocephalic, atraumatic. Mucous membranes moist. EOMI, PERRLA, bilateral sclera anicteric, no conjunctival injection. Neck supple without JVD, lymphadenopathy, or bruit. Respiratory: clear to ascultation bilaterally. No rales/rhonic/wheezes. Cardiovascular: Regular rate and rhythm, normal S1-S2 upon auscultation. No murmurs, rubs, or clicks. PMI is nondisplaced, capillary refill less than 3 second. Abdomen: round, no pulsatile masses, and nontender. No rebound, no guarding. No CVA tenderness, no hepatosplenomegaly. Bowel sounds present to all four quadrants. No high pitch or tinkling sounds, resonant to percussion. Extremities: No cyanosis, clubbing, or edema present. Pulses are palpable 2/2. Active ROM to all four extremities. Neuro: Alert and orientated x 4. PERRLA. Cranial nerves 2-12 intact without focal deficit. Skin: Warm, dry, and intact, without rash, erythema, or lesion. Pale Psych: pleasant, cooperative, normal speech, normal affect, no hallucinations, no dysarthia Const: General: comfortable Results Labs 06/10/24 06:35 06/10/24 06:35 Labs: Short CBC 06/10/24 Range/Units 06:35 WBC 12.6 H (4.5-10.0) K/mm3 Hgb 9.8 L (14.0-18.0) g/dL Hct 29.0 L (42.0-52.0) % Plt Count 288 (150-375) k/mm3 [facility] 06/10/24 06:35 Sodium 133 L Potassium 4.2 Chloride 108 H Carbon Dioxide 25 BUN 10 Creatinine 0.70 Glucose 109 Calcium 8.8 Quality VTE Prophylaxis VTE prophylaxis: pharmacologic ordered
[2024-06-10 12:00] VITALS: PULSE 73
--- NOTE | 2024-06-10 12:28 | PM.DS ---
DS: Admitting Diagnosis Discharge Date 06/10/2024 Admitting Diagnosis BPH DS: Discharge Diagnosis Discharge Diagnosis (1) ROBIN (acute kidney injury): Code(s): N17.9 - Acute kidney failure, unspecified Status: Acute (2) Sepsis: Code(s): A41.9 - Sepsis, unspecified organism Status: Acute (3) BPH w urinary obs/LUTS: Code(s): N40.1 - Benign prostatic hyperplasia with lower urinary tract symptoms; N13.8 - Other obstructive and reflux uropathy Status: Acute DS: Summary Hospital Course Hospital Course: Patient was admitted on the morning of a TURP. The procedure was uneventful in things were going normally until the day following admission when his catheter was removed. With voiding he had 2 presyncopal episodes. Ultimately it appeared if he had a underlying urinary tract infection as cause with subsequent sepsis. Improved with ceftriaxone but the day prior to admission and had a regression in his leukocytosis. Throughout all this was he was afebrile. He was switched to Unasyn. At the time of discharge his urine culture was showing no growth. He will be discharged on Augmentin with plans to follow-up in 10-14 days. Given careful instructions to call if he develops fever or syncope. I will contact him if there is a change in the status of his urine culture. he was voiding without signs of retention but having ongoing incontinence, as expected with his history of overactive bladder preoperative Time Spent with Patient Time attestation: Total time spent providing and/or coordinating discharge services: DS: Data Data Completed and Pending Pending studies at discharge: Pending at discharge 06/06/24 13:43 Surgical [PTH] Routine Labs on day of discharge: Labs from last 24 hours 06/10/24 06/09/24 06:35 15:13 WBC 12.6 H RBC 3.06 L Hgb 9.8 L Hct 29.0 L MCV 94.8 MCH 32.0 MCHC 33.8 RDW 17.9 H Plt Count 288 MPV 10.9 H Immature Gran % (Auto) 2.4 H Neut % (Auto) 65.5 Lymph % (Auto) 16.5 L [place] % (Auto) 12.7 H Eos % (Auto) 2.5 Baso % (Auto) 0.4 Lymph # (Auto) 2.08 [place] # (Auto) 1.6 H Eos # (Auto) 0.3 Baso # (Auto) 0.1 Abs Immat Gran (auto) 0.30 H Absolute Neuts (auto) 8.3 H Absolute Nucleated RBC 0.000 Nucleated RBC % 0.0 Sodium 133 L Potassium 4.2 Chloride 108 H Carbon Dioxide 25 Anion Gap 0 L BUN 10 Creatinine 0.70 Estim Creat Clear Calc 61 Estimated GFR > 60 Glucose 109 Lactic Acid 1.1 Calcium 8.8 Discharge Plan Discharge Consulting providers: Sharmila Acosta Discharge Instructions: 1) Activity: No lifting/straining >15lbs. x2 weeks. 2) Diet: Resume normal pre-admission diet. 3) Follow-up: 2-3 weeks / call office for appointment ([phone]). Patient Language: Croatian Stand Alone Forms: General Discharge Instructions Discharge Medications: New hydrocodone-acetaminophen 5-325 mg tablet 1 - 2 tablet PO Q6H PRN (Reason: pain) Qty: 20 0RF docusate sodium [Colace] 100 mg capsule 100 mg PO DAILY Qty: 30 0RF amoxicillin-pot clavulanate [Augmentin] 500-125 mg tablet 1 tablet PO Q12H Qty: 20 0RF Continued lisinopril 5 mg tablet 5 mg PO DAILY Qty: 90 3RF Held aspirin [Adult Low Dose Aspirin] 81 mg tablet,delayed release (DR/EC) 81 mg PO DAILY Hold Instructions: Resume on 06/12/24. Date of admission: 06/08/24 07:42 Primary Care Provider: Nikolas Dockery Admitting Provider: Gilmar Pickett Attending physician on admission: Gilmar Pickett
== END 2024-06-10 14:20 | disposition home or self-care (01) | DRG 666 ==
LOC: ANHSURGERY 07:47 → ANH3MEDSUR 07:47
PROVIDERS: Nurse Practitioner; Nurse Practitioner Gerontology; Admitting Provider Urology; PCP Family Medicine; Visit Provider Urology
PROC: 0VT08ZZ Resection of Prostate, Via Natural or Artificial Opening Endoscopic (ICD-10-PCS; CPT 52601; principal; 2024-06-06 13:15)
DX: N39.0 Urinary tract infection, site not specified (principal); E87.20 Acidosis, unspecified; N17.9 Acute kidney failure, unspecified; N13.8 Other obstructive and reflux uropathy; N40.1 Benign prostatic hyperplasia with lower urinary tract symptoms; N32.81 Overactive bladder; I10 Essential (primary) hypertension; I95.81 Postprocedural hypotension; E78.5 Hyperlipidemia, unspecified; D73.5 Infarction of spleen; M54.9 Dorsalgia, unspecified; G89.29 Other chronic pain
CPT/HCPCS: 36415; 36600; 70450; 71045; 71260; 74018; 74177; 80048; 80053; 81001; 82805; 82948; 83605; 83880; 84484; 85014; 85018; 85025; 85027; 87086; 88305; 88342; 93005; 93970; A9270; C1758; J0295; J0690; J0696; J1100; J1644; J2405; J2543; J2704; J3010; J7030; J7120; Q9967

== ENCOUNTER 2024-08-07 00:11 | Day surgery (SDC) | payer MEDICARE, SELFPAY ==
[2024-07-22 14:10] VITALS: BMI 25.0
--- OUTSIDE RECORDS SUMMARY | 2024-08-07 00:14 | XMS_ITS | Patient Health Summary ---
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 This disclosure is being madepursuant to the Care Everywhere program and may not contain all information available regarding this patient. Last updated 18.[facility] Allergies No known active allergies Medications * Be aware that medications may not be up to date on this document. Alwaysverify current medications with the patient. * docusate sodium (COLACE) 100 MG capsule(Started 12/17/2012) Take 1 Cap by mouth 2 times daily. * polyethylene glycol 3350 (MIRALAX) packet(Started 12/17/2012) Take 17 g by mouth once daily as needed for Constipation. * gabapentin (NEURONTIN) 300 MG capsule(Started 02/08/2013) Take 1 Cap by mouth 3 times daily. 3 refills left * cephALEXin (KEFLEX) 500 MG capsule Take 1 Cap by mouth 4 times daily. * oxyCODONE CR 12hr (OXYCONTIN) 80 MG tablet(Started 04/23/2013) Take 1 Tab by mouth every 12 hours. * tiZANidine (ZANAFLEX) 4 MG tablet(Started 04/23/2013) Take 1-2 Tabs by mouth every 6 hours as needed for Muscle Spasms. 2 refills left * oxycodone-acetaminophen (PERCOCET) 10-325 MG tablet(Started 04/23/2013) Take 1 Tab by mouth every 4 hours as needed. Active Problems Problem Noted Date Diagnosed Date Hip pain 05/17/2012 Pain in joint, lower leg 05/17/2012 Foot pain 05/17/2012 Social History Tobacco Use Types Packs/Day Years Used Date Smoking Tobacco: Never Smokeless Tobacco: Never Alcohol Use Standard Drinks/Week Comments Yes 0 (1 standard drink = 0.6 oz pur e alcohol) SOCIAL/ONLY-- Sex and Gender Information Value Date Recorded Sex Assigned at Not on file Gender Identity Not on file Sexual Orientation Not on file Last Filed Vital Signs Vital Sign Reading Time Taken Comments Blood Pressure 107/58 04/15/2013 11:21 AM CDT Pulse 50 04/15/2013 11:21 AM CDT Temperature 36.8 C (98.3 F) 04/15/2013 9:10 AM CDT Respiratory Rate 18 04/15/2013 11:21 AM CDT Oxygen Saturation 96% 04/15/2013 11:21 AM CDT Inhaled Oxygen Concentration - - Weight 68 kg (150 lb) 04/15/2013 9:10 AM CDT Height 170.2 cm (5' 7 ) 04/15/2013 9:10 AM CDT Body Mass Index 23.49 04/15/2013 9:10 AM CDT Procedures * MRI LUMBAR SPINE WWO CONTRAST(Performed 11/06/2013) Performed for Postoperative seroma, initial encounter * MRI LUMBAR SPINE WWO CONTRAST(Performed 04/15/2013) Performed for Discitis of lumbar region, Osteomyelitis of vertebra of lumbar region (HCC) * MRI LUMBAR SPINE WWO CONTRAST(Performed 03/15/2013) Performed for Low back pain * MRI LUMBAR SPINE WWO CONTRAST(Performed 02/14/2013) Performed for Discitis of lumbar region, Osteomyelitis of vertebra of lumbar region (HCC) * CBC W AUTO DIFFERENTIAL(Performed 01/17/2013) * URINALYSIS REFLEX MICROSCOPIC REFLEX CULTURE(Performed 01/16/2013) * CT HEAD WO CONTRAST(Performed 01/16/2013) Performed for Altered mental status * BLOOD GASES ART (ISTAT)(Performed 01/16/2013) * BLOOD GASES ARTERIAL POCT(Performed 01/16/2013) * CULTURE BLOOD(Performed 01/16/2013) * CULTURE BLOOD(Performed 01/16/2013) * CBC W MANUAL DIFFERENTIAL(Performed 01/16/2013) * DIFFERENTIAL MANUAL(Performed 01/16/2013) * CBC W AUTO DIFFERENTIAL(Performed 01/16/2013) * VANCOMYCIN LEVEL TROUGH(Performed 01/15/2013) * CBC W AUTO DIFFERENTIAL(Performed 01/15/2013) * CREATININE BLOOD(Performed 01/15/2013) * DISCECTOMY LUMBAR MICROSCOPIC(Performed 01/15/2013) * CULTURE AFB+SMEAR(Performed 01/14/2013) * CULTURE FUNGUS OTHER+FUNGUS SMEAR(Performed 01/14/2013) * CULTURE WOUND+GRAM STAIN(Performed 01/14/2013) * CULTURE ANAEROBE(Performed 01/14/2013) * XR LUMBAR SPINE IN OR 1VW(Performed 01/14/2013) Performed for Back pain * CULTURE WOUND+GRAM STAIN(Performed 01/14/2013) * VANCOMYCIN LEVEL TROUGH(Performed 01/12/2013) * PT-INR(Performed 01/12/2013) * BASIC METABOLIC PANEL (CALCIUM TOTAL)(Performed 01/12/2013) * CBC W AUTO DIFFERENTIAL(Performed 01/12/2013) * XR CHEST 2VW(Performed 01/11/2013) Performed for Pain in joint, lower leg * C-REACTIVE PROTEIN(Performed 01/11/2013) * ERYTHROCYTE SEDIMENTATION RATE(Performed 01/11/2013) * COMPREHENSIVE METABOLIC PANEL(Performed 01/10/2013) * CBC W AUTO DIFFERENTIAL(Performed 01/10/2013) * MRI LUMBAR SPINE WWO CONTRAST(Performed 01/10/2013) Performed for Postoperative wound infection * CREATININE BLOOD(Performed 12/17/2012) * VANCOMYCIN LEVEL TROUGH(Performed 12/16/2012) * XR CHEST 1VW PORTABLE(Performed 12/14/2012) Performed for Back pain, Bacteremia * BASIC METABOLIC PANEL (CALCIUM TOTAL)(Performed 12/14/2012) * CBC W AUTO DIFFERENTIAL(Performed 12/14/2012) * VANCOMYCIN LEVEL TROUGH(Performed 12/13/2012) * CT GUIDED NEEDLE PLACEMENT(Performed 12/13/2012) Performed for Back pain, Leukocytosis, Bacteremia * CULTURE ANAEROBE(Performed 12/13/2012) * CULTURE FLUID+GRAM STAIN(Performed 12/13/2012) * CBC W AUTO DIFFERENTIAL(Performed 12/13/2012) * BASIC METABOLIC PANEL (CALCIUM TOTAL)(Performed 12/13/2012) * CBC W AUTO DIFFERENTIAL(Performed 12/12/2012) * CULTURE BLOOD(Performed 12/11/2012) * CULTURE BLOOD(Performed 12/11/2012) * BASIC METABOLIC PANEL (CALCIUM TOTAL)(Performed 12/11/2012) Performed for Back pain, Leukocytosis, Bacteremia * CBC W AUTO DIFFERENTIAL(Performed 12/11/2012) Performed for Back pain, Leukocytosis, Bacteremia * VANCOMYCIN LEVEL TROUGH(Performed 12/10/2012) * ECHOCARDIOGRAM 2D WITH DOPPLER(Performed 12/10/2012) Performed for Leukocytosis, Bacteremia, Back pain * CBC W AUTO DIFFERENTIAL(Performed 12/10/2012) Performed for Back pain, Leukocytosis * PT EVAL AND TREAT(Performed 12/09/2012) Performed for Back pain, Leukocytosis * OT EVAL AND TREAT(Performed 12/09/2012) Performed for Back pain, Leukocytosis * PT PTT PANEL(Performed 12/09/2012) Performed for Leukocytosis * CBC W AUTO DIFFERENTIAL(Performed 12/09/2012) * BASIC METABOLIC PANEL (CALCIUM TOTAL)(Performed 12/09/2012) * MRI LUMBAR SPINE WWO CONTRAST(Performed 12/08/2012) Performed for Back pain * CULTURE BLOOD(Performed 12/08/2012) * CULTURE BLOOD(Performed 12/08/2012) * CKMB(Performed 12/08/2012) * C-REACTIVE PROTEIN SENSITIVE(Performed 12/08/2012) * ERYTHROCYTE SEDIMENTATION RATE(Performed 12/08/2012) * URINALYSIS REFLEX MICROSCOPIC REFLEX CULTURE(Performed 12/08/2012) * HEPATIC FUNCTION PANEL(Performed 12/08/2012) * BASIC METABOLIC PANEL (CALCIUM TOTAL)(Performed 12/08/2012) * CBC W AUTO DIFFERENTIAL(Performed 12/08/2012) * XR LUMBAR SPINE 2 OR 3VW(Performed 12/08/2012) Performed for Back pain * HGB HCT PANEL(Performed 11/06/2012) Performed for S/P laminectomy * LAMINECTOMY/DECOMPRESSION LUMBAR(Performed 11/05/2012) Performed for Spinal stenosis in cervical region * XR LUMBAR SPINE IN OR 1VW(Performed 11/05/2012) Performed for Back pain * CULTURE MSSA/MRSA(Performed 10/25/2012) Performed for Preoperative examination * TYPE + SCREEN PANEL(Performed 10/25/2012) Performed for Preoperative examination * HGB HCT PANEL(Performed 10/25/2012) Performed for Preoperative examination * MRI LUMBAR SPINE WWO CONTRAST(Performed 10/09/2012) Performed for Lumbar spinal stenosis, Aftercare Following Surgery Of The Musculoskeletal System, Nec, Low back pain * HGB HCT PANEL(Performed 07/03/2012) * XR LUMBAR SPINE IN OR 1VW(Performed 07/02/2012) Performed for Back pain * EKG 12-LEAD(Performed 06/25/2012) Performed for Preoperative examination, unspecified * TYPE + SCREEN PANEL(Performed 06/25/2012) Performed for Preoperative examination, unspecified * URINALYSIS REFLEX MICROSCOPIC REFLEX CULTURE(Performed 06/25/2012) Performed for Preoperative examination, unspecified * COMPREHENSIVE METABOLIC PANEL(Performed 06/25/2012) Performed for Preoperative examination, unspecified * CBC W AUTO DIFFERENTIAL(Performed 06/25/2012) Performed for Preoperative examination, unspecified * IMAGING/RADIOLOGY/XRAY RESULTS ORDER(Performed 06/27/2011) Results * MRI SPINE LUMBAR WITH & WITHOUT CONTRAST (11/06/2013 12:43 PM CDT) Only the most recent of7 resultswithin the time period is included. Anatomical Region Laterality Modality Spine Magnetic Resonan ce 11/06/2013 1:55 PM CDT Impressions 11/06/2013 3:53 PM CDT There is no longer any abnormal fluid or significant enhancement at the L2-3 disc space. Phlegmon surrounding the thecal sac at L2-3 has substantially improved. There are no new areas suggesting discitis or osteomyelitis. Multilevel central canal, lateral recess and neural foraminal stenoses are again demonstrated. Edited by Mel Luz on 11/06/2013 3:52 PM Narrative 11/06/2013 3:53 PM CDT MRI Lumbar Spine Indication: Low back pain, three low back surgeries in 2011 and 2012. Staph infection following surgery. On antibiotics until recently. Comparison: MRI lumbar spine April 15, 2013; March 15, 2013; February 14, 2013. Technique: Sagittal and axial T1 and T2. Sagittal and axial T1 following intravenous administration of 16 cc Omniscan. Sagittal STIR, 3-D lumbar myelogram. Findings: Lumbar vertebral levels have been consistently designated L1 through L5, and this numbering scheme shall be utilized on this examination. Alignment: An anterolisthesis of L5 on S1 is unchanged from previous examination. There is no new level of malalignment. Marrow: Abnormal marrow signal suggesting prior hardware placement adjacent to the L5-S1 disc is unchanged from previous examination. There is a remote partial compression fracture at the superior endplate of the T12 vertebral body. This is unchanged. Marrow edema adjacent to the L2-3 disc has decreased significantly since previous examination. There is no longer any significant marrow edema at this level. Osseous bridging appears to be occurring posteriorly at the L2-3 disc space. Loss of vertebral body height at the inferior L2 and superior L3 vertebral levels have stabilized. Phlegmon previously seen at L2-3 has essentially resolved. Spinal cord: Slightly deformed by disc bulge and ligamentous hypertrophy at T11-12. This is unchanged. Disc spaces: There is no longer any abnormal fluid signal or significant enhancement at the L2-3 disc space. Loss of disc height and hydration are again noted from L1-2 through L5-S1. The following levels were directly imaged in the axial plane: T11-12: Disc bulge eccentric to the left and facet hypertrophy results in a mild to moderate left lateral recess stenosis. A mild central canal stenosis results. T12-L1: No significant stenosis is present. L1-L2: Diffuse disc bulge and bilateral facet arthropathy result in a mild to moderate central canal stenosis. Neural foramina are moderately narrowed bilaterally. L2-L3: Bony ridge effaces the ventral CSF space without significant central canal stenosis. Posterior decompression has been performed. Phlegmon surrounding the thecal sac and in the soft tissues posterior to the spinal canal appears significantly improved when compared to previous examination. Bony ridge extends into the neural foramina bilaterally, right greater than left, resulting in a moderate to severe right neural foraminal stenosis and a moderate left neural foraminal stenosis. L3-L4: Posterior decompression has been performed. Facet arthropathy results in a mild left lateral recess stenosis. Neural foramina are mild to moderately narrowed bilaterally. L4-L5: Posterior decompression has been performed. Facet arthropathy results in a mild to moderate bilateral lateral recess stenosis. There is a small disc extrusion extending superiorly from the L4-5 disc slightly to right of midline. L5-S1: Malalignment, disc bulge, and facet arthropathy result in a mild central canal stenosis and moderate bilateral lateral recess stenosis. Neural foramina are moderate to severely narrowed on the right and left. Procedure Note Caro Sweeney MD - 11/06/2013 MRI Lumbar Spine Indication: Low back pain, three low back surgeries in 2011 and 2012. Staph infection following surgery. On antibiotics until recently. Comparison: MRI lumbar spine April 15, 2013; March 15, 2013; February 14, 2013. Technique: Sagittal and axial T1 and T2. Sagittal and axial T1 following intravenous administration of 16 cc Omniscan. Sagittal STIR, 3-D lumbar myelogram. Findings: Lumbar vertebral levels have been consistently designated L1 through L5, and this numbering scheme shall be utilized on this examination. Alignment: An anterolisthesis of L5 on S1 is unchanged from previous examination. There is no new level of malalignment. Marrow: Abnormal marrow signal suggesting prior hardware placement adjacent to the L5-S1 disc is unchanged from previous examination. There is a remote partial compression fracture at the superior endplate of the T12 vertebral body. This is unchanged. Marrow edema adjacent to the L2-3 disc has decreased significantly since previous examination. There is no longer any significant marrow edema at this level. Osseous bridging appears to be occurring posteriorly at the L2-3 disc space. Loss of vertebral body height at the inferior L2 and superior L3 vertebral levels have stabilized. Phlegmon previously seen at L2-3 has essentially resolved. Spinal cord: Slightly deformed by disc bulge and ligamentous hypertrophy at T11-12. This is unchanged. Disc spaces: There is no longer any abnormal fluid signal or significant enhancement at the L2-3 disc space. Loss of disc height and hydration are again noted from L1-2 through L5-S1. The following levels were directly imaged in the axial plane: T11-12: Disc bulge eccentric to the left and facet hypertrophy results in a mild to moderate left lateral recess stenosis. A mild central canal stenosis results. T12-L1: No significant stenosis is present. L1-L2: Diffuse disc bulge and bilateral facet arthropathy result in a mild to moderate central canal stenosis. Neural foramina are moderately narrowed bilaterally. L2-L3: Bony ridge effaces the ventral CSF space without significant central canal stenosis. Posterior decompression has been performed. Phlegmon surrounding the thecal sac and in the soft tissues posterior to the spinal canal appears significantly improved when compared to previous examination. Bony ridge extends into the neural foramina bilaterally, right greater than left, resulting in a moderate to severe right neural foraminal stenosis and a moderate left neural foraminal stenosis. L3-L4: Posterior decompression has been performed. Facet arthropathy results in a mild left lateral recess stenosis. Neural foramina are mild to moderately narrowed bilaterally. L4-L5: Posterior decompression has been performed. Facet arthropathy results in a mild to moderate bilateral lateral recess stenosis. There is a small disc extrusion extending superiorly from the L4-5 disc slightly to right of midline. L5-S1: Malalignment, disc bulge, and facet arthropathy result in a mild central canal stenosis and moderate bilateral lateral recess stenosis. Neural foramina are moderate to severely narrowed on the right and left. IMPRESSION There is no longer any abnormal fluid or significant enhancement at the L2-3 disc space. Phlegmon surrounding the thecal sac at L2-3 has substantially improved. There are no new areas suggesting discitis or osteomyelitis. Multilevel central canal, lateral recess and neural foraminal stenoses are again demonstrated. Edited by Mel Luz on 11/06/2013 3:52 PM Michael Smith MD MR ORDERABLES * (ABNORMAL) CBC W AUTO DIFFERENTIAL (01/17/2013 4:02 AM CDT) Only the most recent of13 resultswithin the time period is included. WBC 13.6(H) 4.4 - 10.7 x10^9/L 01/17/2013 4:57 AM CDT [facility] RBC 3.42(L) 3.80 - 5.40 x10^12/L 01/17/2013 4:57 AM CDT [facility] Hemoglobin 10.2(L) 12.0 - 17.6 g/dL 01/17/2013 4:57 AM CDT [facility] Hematocrit 30.2(L) 35.2 - 51.7 % 01/17/2013 4:57 AM CDT [facility] MCV 88.3 80.7 - 98.3 fl 01/17/2013 4:57 AM CDT [facility] MCH 29.8 26.7 - 34.0 pg 01/17/2013 4:57 AM CDT [facility] MCHC 33.8 30.8 - 35.9 gm/dL 01/17/2013 4:57 AM CDT [facility] Platelet Count 371 153 - 416 x10^9/L 01/17/2013 4:57 AM CDT [facility] RDW-CV 12.7 12.1 - 14.9 % 01/17/2013 4:57 AM CDT [facility] Neutrophils % 63 44 - 73 % 01/17/2013 4:57 AM CDT [facility] Lymphocytes % 18(L) 20 - 43 % 01/17/2013 4:57 AM CDT [facility] Monocytes % 17(H) 5 - 13 % 01/17/2013 4:57 AM CDT [facility] Eosinophils % 1 0 - 6 % 01/17/2013 4:57 AM CDT [facility] Basophils % 0 0 - 2 % 01/17/2013 4:57 AM CDT [facility] Immature Granulocytes 0.5 0 - 1 % 01/17/2013 4:57 AM CDT [facility] Neutrophil Absolute 8.54(H) 2.01 - 7.14 x10^9/L 01/17/2013 4:57 AM CDT [facility] Lymphocytes Absolute 2.42 1.07 - 3.94 x10^9/L 01/17/2013 4:57 AM CDT [facility] Monocytes Absolute 2.35(H) 0.26 - 1.07 x10^9/L 01/17/2013 4:57 AM CDT [facility] Eosinophils Absolute 0.18 0 - 0.47 x10^9/L 01/17/2013 4:57 AM CDT [facility] Basophils Absolute 0.02 0 - 0.08 x10^9/L 01/17/2013 4:57 AM CDT [facility] Immature Granulocytes Absolute 0.07(H) 0.00 - 0.06 x10^9/L 01/17/2013 4:57 AM CDT [facility] nRBC Auto 0 01/17/2013 4:57 AM CDT [facility] Blood BLOOD SPECIMEN / Unknown 01/17/2013 4:02 AM CDT 01/17/2013 4:44 AM CDT Jim Heard MD LAB - HEMATOLOGY ORD ERABLES [facility] [id number] [place] [address] * (ABNORMAL) URINALYSIS ROUTINE W/REFLEX TO CULTURE (01/16/2013 7:39 PM CDT) Only the most recent of3 resultswithin the time period is included. [facility] Color UA Yellow Straw, Yellow, Dark Yellow 01/16/2013 7:59 PM CDT [facility] Clarity UA Cloudy 01/16/2013 7:59 PM CDT [facility] Specific [place] UA 1.020 1.005 - 1.030 01/16/2013 7:59 PM CDT [facility] pH UA 7.0 5.0 - 8.0 01/16/2013 7:59 PM CDT [facility] Protein UA Trace(A) Negative 01/16/2013 7:59 PM CDT [facility] Blood UA Negative Negative 01/16/2013 7:59 PM CDT [facility] Leukocyte UA Negative Negative 01/16/2013 7:59 PM CDT [facility] Nitrite UA Negative Negative 01/16/2013 7:59 PM CDT [facility] Glucose UA Negative Negative 01/16/2013 7:59 PM CDT [facility] Ketone UA Negative Negative 01/16/2013 7:59 PM CDT [facility] Bilirubin UA Negative Negative 01/16/2013 7:59 PM CDT [facility] Urobilinogen UA 1.0 0.1 - 1.0 EU/dL 01/16/2013 7:59 PM CDT [facility] WBC UA Auto 2-5 0-2, 2-5 #/hpf 01/16/2013 7:59 PM CDT [facility] RBC UA Auto 2-5 0-2, 2-5 #/hpf 01/16/2013 7:59 PM CDT [facility] Epithelial Cell UA Auto 0-2 0-2, 2-5 #/hpf 01/16/2013 7:59 PM CDT [facility] Bacteria UA Auto None seen None seen 01/16/2013 7:59 PM CDT [facility] Hyaline Casts UA Auto 0-2 0 - 2 #/lpf 01/16/2013 7:59 PM CDT [facility] Reflex Status Culture not indicated 01/16/2013 7:59 PM CDT [facility] Urine URINE SPECIMEN OBTAINED BY CLEAN CATCH PROCEDURE / Unknown 01/16/2013 7:39 PM CDT 01/16/2013 7:48 PM CDT Michael Smith MD LAB - URINALYSIS ORD ERABLES [facility] [id number] [place] [address] * CT HEAD NON CONTRAST (01/16/2013 7:07 PM CDT) Anatomical Region Laterality Modality Head Computed Tomogra phy 01/16/2013 7:12 PM CDT Impressions 01/16/2013 7:12 PM CDT No gross acute intracranial findings. Emergency noncontrast brain CT. Please see above. Narrative 01/16/2013 7:12 PM CDT EXAMINATION: CT BRAIN WITHOUT CONTRAST. Indication: Altered mental status study at 1750 hours. TIA CVA. Technique: Emergency noncontrast axial images of the brain were filmed with a slice width of 5 mm at the time of the patient's presentation. This CT report was transcribed with a computerized speech recognition system. In an effort to expedite patient care, it has not been adjusted for typographical, grammatical or syntax problems by a trained medical assembly. Findings: The examination is limited due to patient motion and rotation of the head. There is no intracranial mass-effect or midline shift identified. The ventricular system is normal in size for the stated age. No focal intraparenchymal hemorrhage can be identified. No cortical infarction can be seen. If the patient's symptoms persist or worsen, a followup brain CT or MRI is recommended for further evaluation. Procedure Note Davion Heath MD - 01/16/2013 EXAMINATION: CT BRAIN WITHOUT CONTRAST. Indication: Altered mental status study at 1750 hours. TIA CVA. Technique: Emergency noncontrast axial images of the brain were filmed with a slice width of 5 mm at the time of the patient's presentation. This CT report was transcribed with a computerized speech recognition system. In an effort to expedite patient care, it has not been adjusted for typographical, grammatical or syntax problems by a trained medical assembly. Findings: The examination is limited due to patient motion and rotation of the head. There is no intracranial mass-effect or midline shift identified. The ventricular system is normal in size for the stated age. No focal intraparenchymal hemorrhage can be identified. No cortical infarction can be seen. If the patient's symptoms persist or worsen, a followup brain CT or MRI is recommended for further evaluation. IMPRESSION No gross acute intracranial findings. Emergency noncontrast brain CT. Please see above. Jim Heard MD CT ORDERABLES * (ABNORMAL) BLOOD GASES ART (ISTAT) (01/16/2013 6:39 PM CDT) pH Arterial POCT 7.52(H) 7.35 - 7.45 pH 01/16/2013 6:45 PM CDT [facility] pCO2 Arterial 28.3(L) 32 - 43 mmHg 01/16/2013 6:45 PM CDT [facility] pO2 Arterial 58(L) 72 - 104 mmHg 01/16/2013 6:45 PM CDT [facility] HCO3 Arterial POCT 23.0 22 - 26 mmol/L 01/16/2013 6:45 PM CDT [facility] BE Arterial 1 -2 - 2 mmol/L 01/16/2013 6:45 PM CDT [facility] TCO2 Arterial Calc POCT 24 22 - 29 mmol/L 01/16/2013 6:45 PM CDT [facility] O2 Saturation Arterial 93 90 - 100 % 01/16/2013 6:45 PM CDT [facility] Site R Radial 01/16/2013 6:45 PM CDT [facility] Yevgeniy's Test POS/PASS 01/16/2013 6:45 PM CDT [facility] Treatment Delivery Method Room Air 01/16/2013 6:45 PM CDT [facility] Sample iSTAT ARTERI 01/16/2013 6:45 PM CDT [facility] PT iSTAT [id number] 01/16/2013 6:45 PM CDT [facility] Device 01/16/2013 6:45 PM CDT [facility] Clinical Nurse ID [id number] 01/16/2013 6:45 PM CDT [facility] Blood ARTERIAL BLOOD SPECIMEN / Unknown 01/16/2013 6:39 PM CDT 01/16/2013 6:45 PM CDT Jim Heard MD LAB - POINT OF CARE ORDERABLES [facility] [id number] [place] [address] * BLOOD GASES ARTERIAL POCT (01/16/2013 6:22 PM CDT) Pathologist [facility] Comment Notification Only - See Separate Report 01/16/2013 8:00 PM CDT [facility] Blood BLOOD SPECIMEN / Unknown 01/16/2013 6:22 PM CDT 01/16/2013 6:22 PM CDT Jim Heard MD LAB - BLOOD GASES OR DERABLES Performing Organization Address [facility] [place] de Phone Number [facility] [address] [place] [id number] * (ABNORMAL) GLUCOSE - POINT OF CARE (01/16/2013 6:04 PM CDT) Blood BLOOD SPECIMEN / Unknown 01/16/2013 6:04 PM CDT 01/16/2013 10:38 PM CDT Jim Heard MD LAB - POINT OF CARE ORDERABLES Performing Organization Address [facility] [place] de Phone Number [facility] [id number] [place] [id number] * CULTURE BLOOD (01/16/2013 2:28 PM CDT) Only the most recent of6 resultswithin the time period is included. [facility] Culture No Growth 01/22/2013 6:24 AM CDT [facility] Blood PERIPHERAL BLOOD / Unknown 01/16/2013 2:28 PM CDT 01/16/2013 2:41 PM CDT Michael Smith MD LAB - MICROBIOLOGY O RDERABLES Performing Organization Address [facility] Co de Phone Number [facility] [address] [place] [address], [facility] * (ABNORMAL) CBC W MANUAL DIFFERENTIAL (01/16/2013 11:40 AM CDT) [facility] WBC 15.1(H) 4.4 - 10.7 x10^9/L 01/16/2013 11:59 AM CDT [facility] RBC 3.36(L) 3.80 - 5.40 x10^12/L 01/16/2013 11:59 AM CDT [facility] Hemoglobin 10.1(L) 12.0 - 17.6 g/dL 01/16/2013 11:59 AM CDT [facility] Hematocrit 29.4(L) 35.2 - 51.7 % 01/16/2013 11:59 AM CDT [facility] MCV 87.5 80.7 - 98.3 fl 01/16/2013 11:59 AM CDT [facility] MCH 30.1 26.7 - 34.0 pg 01/16/2013 11:59 AM CDT [facility] MCHC 34.4 30.8 - 35.9 gm/dL 01/16/2013 11:59 AM CDT [facility] RDW-CV 12.6 12.1 - 14.9 % 01/16/2013 11:59 AM CDT [facility] MPV 9.4 - 12.9 fl 01/16/2013 11:59 AM CDT [facility] Platelet Count 353 153 - 416 x10^9/L 01/16/2013 11:59 AM CDT [facility] Blood BLOOD SPECIMEN / Unknown 01/16/2013 11:40 AM CDT 01/16/2013 11:45 AM CDT Jim Heard MD LAB - HEMATOLOGY ORD ERABLES [facility] [address] [place] [address] * (ABNORMAL) DIFFERENTIAL MANUAL (01/16/2013 11:40 AM CDT) WBC Auto 15.1(H) 4.4 - 10.7 X(10)9/L 01/16/2013 12:46 PM CDT [facility] Neutrophil % Manual 76(H) 44 - 73 % 01/16/2013 12:46 PM CDT [facility] Lymphocytes % Manual 9(L) 20 - 43 % 01/16/2013 12:46 PM CDT [facility] Monocytes % Manual 10 5 - 13 % 01/16/2013 12:46 PM CDT [facility] Eosinophils % Manual 3 0 - 6 % 01/16/2013 12:46 PM CDT [facility] Atypical Lymphocyte % Manual 2(H) <=0 % 01/16/2013 12:46 PM CDT [facility] Cells Counted 100 # cells 01/16/2013 12:46 PM CDT [facility] RBC Morphology Normal 01/16/2013 12:46 PM CDT [facility] WBC Morph Normal 01/16/2013 12:46 PM CDT [facility] Blood BLOOD SPECIMEN / Unknown 01/16/2013 11:40 AM CDT 01/16/2013 11:45 AM CDT Jim Heard MD LAB - HEMATOLOGY ORD ERACAROLINE Performing Organization Address [facility] Co de Phone Number [facility] [address] [place] [address] * (ABNORMAL) VANCOMYCIN LEVEL TROUGH (01/15/2013 11:34 AM CDT) Only the most recent of5 resultswithin the time period is included. Vancomycin Trough 16.2(H) 5.0 - 15.0 ug/mL 01/15/2013 11:57 AM CDT [facility] Blood BLOOD SPECIMEN / Unknown 01/15/2013 11:34 AM CDT 01/15/2013 11:38 AM CDT Michael Smith MD LAB - CHEMISTRY RYAN BURGOS Performing Organization Address [facility] [place] de Phone Number [facility] [address] [place] [address] * CREATININE BLOOD (01/15/2013 3:34 AM CDT) Only the most recent of2 resultswithin the time period is included. Creatinine 0.63 0.50 - 1.30 mg/dL 01/15/2013 4:04 AM CDT [facility] eGFR by MDRD >60 ml/min/1.7 3m2 01/15/2013 4:04 AM CDT [facility] eGFR by MDRD >60 ml/min/1.7 3m2 01/15/2013 4:04 AM CDT [facility] Blood BLOOD SPECIMEN / Unknown 01/15/2013 3:34 AM CDT 01/15/2013 3:47 AM CDT Michael Smith MD LAB - CHEMISTRY RYAN BURGOS Performing Organization Address [facility] Co de Phone Number [facility] [address] [place] [address] * CULTURE FUNGUS OTHER+FUNGUS SMEAR (01/14/2013 7:03 PM CDT) Culture No Fungus Isolated 02/12/2013 6:11 AM CDT [facility] Fungus Smear No yeast or hyphae seen 02/12/2013 6:11 AM CDT [facility] Microbiology SPECIMEN FROM ABSCESS / Unknown 01/14/2013 7:03 PM CDT 01/15/2013 11:54 AM CDT Michael Smith MD LAB - MICROBIOLOGY O RDERABLES [facility] [address] [place] [address], [facility] * (ABNORMAL) CULTURE WOUND+GRAM STAIN (01/14/2013 7:03 PM CDT) Only the most recent of2 resultswithin the time period is included. Culture Staphylococcus species (Coagulase Negative)(A) 01/24/2013 11:41 AM CDT [facility] Comment:Isolated from broth only Gram Stain Light White blood cells 01/24/2013 11:41 AM CDT [facility] Gram Stain No organisms seen 013 11:41 AM CDT [facility] Microbiology BACK REGION / Unknown 01/14/2013 7:03 PM CDT 01/14/2013 7:28 PM CDT Narrative Organism Antibiotic Method Susceptibility Staphylococcus species (coagulase-negative) Ciprofloxacin DWAIN <=0.5: Susceptible Staphylococcus species (coagulase-negative) Clindamycin DWAIN <=0.25: Susceptible Staphylococcus species (coagulase-negative) Erythromycin DWAIN <=0.25: Susceptible Staphylococcus species (coagulase-negative) Gentamicin DWAIN <=0.5: Susceptible Staphylococcus species (coagulase-negative) Inducible Clindamycin Resistance DWAIN NEG: - Staphylococcus species (coagulase-negative) Levofloxacin DWAIN 0.5: Susceptible Staphylococcus species (coagulase-negative) Linezolid DWAIN 2: Susceptible Staphylococcus species (coagulase-negative) Oxacillin DWAIN 2: Susceptible Staphylococcus species (coagulase-negative) Tetracycline DWAIN <=1: Susceptible Staphylococcus species (coagulase-negative) Trimethoprim-sulfamethoxazo le DWAIN <=10: Susceptible Staphylococcus species (coagulase-negative) Vancomycin DWAIN <=0.5: Susceptible Alan Hoyos MD LAB - MICROBIOLOGY O EMILY Performing Organization Address [facility] Co de Phone Number [facility] [address] * CULTURE AFB+SMEAR (01/14/2013 7:03 PM CDT) Culture No Acid Fast Bacillus Isolated 02/25/2013 2:12 PM CDT [facility] AFB Smear No Acid Fast bacilli seen 02/25/2013 2:12 PM CDT [facility] Microbiology BIOPSY / Unknown 01/14/2013 7:03 PM CDT 01/15/2013 11:54 AM CDT Michael Smith MD LAB - MICROBIOLOGY O EMILY Performing Organization Address [facility] Co de Phone Number [facility] [address] * CULTURE ANAEROBE (01/14/2013 7:02 PM CDT) Only the most recent of2 resultswithin the time period is included. Culture No anaerobic organisms isolated 01/22/2013 1:09 PM CDT [facility] Microbiology BACK REGION / Unknown 01/14/2013 7:02 PM CDT 01/14/2013 7:28 PM CDT Alan Hoyos MD LAB - MICROBIOLOGY O EMILY Performing Organization Address [facility] Co de Phone Number [facility] [address] * XR SPINE LUMBAR SINGLE VIEW (01/14/2013 7:00 PM CDT) Only the most recent of3 resultswithin the time period is included. Anatomical Region Laterality Modality Spine Radiographic Janet ging 01/14/2013 7:08 PM CDT Narrative 01/14/2013 7:08 PM CDT Examination: Portable intraoperative lateral lumbar spine 01/14/2013 Indication for examination: Low back pain. A single portable lateral intraoperative view of the lumbar spine shows a metallic marking device at the level of L2. Procedure Note Pedrito Arredondo MD - 01/14/2013 Examination: Portable intraoperative lateral lumbar spine 01/14/2013 Indication for examination: Low back pain. A single portable lateral intraoperative view of the lumbar spine shows a metallic marking device at the level of L2. Alan Hoyos MD DIAGNOSTIC IMAGING O RDERABLES * PT-INR (01/12/2013 4:54 AM CDT) PT 11.2 9.4 - 11.2 sec 01/12/2013 5:36 AM CDT [facility] INR 1.07 0.9 - 1.1 01/12/2013 5:36 AM CDT [facility] Blood BLOOD SPECIMEN / Unknown 01/12/2013 4:54 AM CDT 01/12/2013 5:18 AM CDT Narrative [facility] - 01/12/2013 5:36 AM CDT Conventional Anticoagulant Therapy INR Reference Ranges: 2.0-3.0 Intensive Anticoagulant Therapy INR Reference Ranges: 2.5-3.5 Jim Heard MD LAB - COAGULATION OR DERABLES Performing Organization Address City/State/[facility] Co de Phone Number [facility] [address] [place] [address] * BASIC METABOLIC PANEL (CALCIUM TOTAL) (01/12/2013 4:54 AM CDT) Only the most recent of6 resultswithin the time period is included. Glucose 91 74 - 106 mg/dL 01/12/2013 5:41 AM CDT [facility] Sodium 137 136 - 145 mmol/L 01/12/2013 5:41 AM CDT [facility] Potassium 4.2 3.5 - 5.1 mmol/L 01/12/2013 5:41 AM CDT [facility] Chloride 101 98 - 107 mmol/L 01/12/2013 5:41 AM CDT [facility] CO2 25 22 - 31 mmol/L 01/12/2013 5:41 AM CDT [facility] Calcium 9.4 8.5 - 10.1 mg/dL 01/12/2013 5:41 AM CDT [facility] Anion Gap 11 5 - 15 mmol/L 01/12/2013 5:41 AM CDT [facility] BUN 10 7 - 21 mg/dL 01/12/2013 5:41 AM CDT [facility] Creatinine 0.64 0.50 - 1.30 mg/dL 01/12/2013 5:41 AM CDT [facility] eGFR by MDRD >60 ml/min/1.7 3m2 01/12/2013 5:41 AM CDT [facility] eGFR by MDRD >60 ml/min/1.7 3m2 01/12/2013 5:41 AM CDT [facility] Blood BLOOD SPECIMEN / Unknown 01/12/2013 4:54 AM CDT 01/12/2013 5:18 AM CDT Jim Heard MD LAB - CHEMISTRY RYAN BURGOS [facility] Organization Address City/State/ZIP Co de Phone Number [facility] [address] [place] [address] * XR CHEST PA AND LATERAL (01/11/2013 7:55 AM CDT) Anatomical Region Laterality Modality Chest Radiographic Janet ging 01/11/2013 8:20 AM CDT Impressions 01/11/2013 8:20 AM CDT No acute disease in the chest. Narrative 01/11/2013 8:20 AM CDT PA AND LATERAL CHEST INDICATION: Chest pain joint pain FINDINGS: There is linear atelectasis in the bases. PICC line terminates at the superior vena cava. The mediastinal contour and heart size are within normal limits. The pulmonary vascularity is normal. The osseous structures are unremarkable. Procedure Note Robyn Singh MD - 01/11/2013 PA AND LATERAL CHEST INDICATION: Chest pain joint pain FINDINGS: There is linear atelectasis in the bases. PICC line terminates at the superior vena cava. The mediastinal contour and heart size are within normal limits. The pulmonary vascularity is normal. The osseous structures are unremarkable. IMPRESSION No acute disease in the chest. Dimas Perez MD DIAGNOSTIC IMAGING O RDERABLES * (ABNORMAL) C-REACTIVE PROTEIN (01/11/2013 3:34 AM CDT) [facility] C-Reactive Protein 4.77(H) <0.30 mg/dL 01/11/2013 10:03 AM CDT [facility] Blood BLOOD SPECIMEN / Unknown 01/11/2013 3:34 AM CDT 01/11/2013 3:46 AM CDT Michael Smith MD LAB - CHEMISTRY ORDStefan BURGOS Performing Organization Address City/[facility]/ZIP Co de Phone Number [facility] [address] [place] [address] * (ABNORMAL) SED RATE WESTERGREN (01/11/2013 3:34 AM CDT) Only the most recent of2 resultswithin the time period is included. [facility] Erythrocyte Sedimentation Rate Westergren 63(H) 0 - 20 mm/hr 01/11/2013 4:21 AM CDT [facility] Blood BLOOD SPECIMEN / Unknown 01/11/2013 3:34 AM CDT 01/11/2013 3:46 AM CDT Michael Smith MD LAB - HEMATOLOGY ORD ERABLES Performing Organization Address City/[facility]/ZIP Co de Phone Number [facility] [address] [place] [address] * (ABNORMAL) COMPREHENSIVE METABOLIC PANEL (01/10/2013 10:16 PM CDT) Only the most recent of2 resultswithin the time period is included. [facility] Glucose 85 74 - 106 mg/dL 01/10/2013 10:47 PM CDT [facility] Sodium 136 136 - 145 mmol/L 01/10/2013 10:47 PM CDT [facility] Potassium 4.2 3.5 - 5.1 mmol/L 01/10/2013 10:47 PM CDT [facility] Chloride 99 98 - 107 mmol/L 01/10/2013 10:47 PM CDT [facility] CO2 26 22 - 31 mmol/L 01/10/2013 10:47 PM CDT [facility] Calcium 9.5 8.5 - 10.1 mg/dL 01/10/2013 10:47 PM CDT [facility] Anion Gap 11 5 - 15 mmol/L 01/10/2013 10:47 PM CDT [facility] BUN 9 7 - 21 mg/dL 01/10/2013 10:47 PM CDT [facility] Creatinine 0.61 0.50 - 1.30 mg/dL 01/10/2013 10:47 PM CDT [facility] eGFR by MDRD >60 ml/min/1.7 3m2 01/10/2013 10:47 PM CDT [facility] eGFR by MDRD >60 ml/min/1.7 3m2 01/10/2013 10:47 PM CDT [facility] Alkaline Phosphatase 100 38 - 126 U/L 01/10/2013 10:47 PM CDT [facility] ALT 17 12 - 78 U/L 01/10/2013 10:47 PM CDT [facility] AST 20 5 - 40 U/L 01/10/2013 10:47 PM CDT [facility] Protein Total 7.6 6.4 - 8.2 gm/dL 01/10/2013 10:47 PM CDT [facility] Albumin 3.2(L) 3.4 - 5.0 gm/dL 01/10/2013 10:47 PM CDT [facility] Bilirubin Total 0.8 0.2 - 1.0 mg/dL 01/10/2013 10:47 PM CDT [facility] Blood BLOOD SPECIMEN / Unknown 01/10/2013 10:16 PM CDT 01/10/2013 10:23 PM CDT Dimas Perez MD LAB - CHEMISTRY RYAN [facility] Organization Address City/State/ZIP Co de Phone Number [facility] [address] [place] [address] * XR CHEST 1VW PORTABLE (12/14/2012 4:52 PM CDT) Anatomical Region Laterality Modality Chest Radiographic Janet ging 12/14/2012 4:56 PM CDT Narrative 12/14/2012 4:56 PM CDT Portable AP Chest x-ray INDICATION: Cough, PICC line placement COMPARISON: None FINDINGS: A right arm PICC line is in place with its tip at the caval atrial junction. There is no focal infiltrate or consolidation. There is no pleural effusion or pneumothorax. The heart size is within the upper limits of normal. Procedure Note Ramón Kohler MD - 12/14/2012 Portable AP Chest x-ray INDICATION: Cough, PICC line placement COMPARISON: None FINDINGS: A right arm PICC line is in place with its tip at the caval atrial junction. There is no focal infiltrate or consolidation. There is no pleural effusion or pneumothorax. The heart size is within the upper limits of normal. Michael Smith MD DIAGNOSTIC IMAGING O RDERABLES * CT GUIDED NEEDLE PLACEMENT (12/13/2012 1:50 PM CDT) Anatomical Region Laterality Modality Abdomen Computed Tomogra phy 12/13/2012 3:28 PM CDT Impressions 12/13/2012 3:[address]-guided lumbar paraspinal fluid collection aspiration, as described above. Narrative 12/13/2012 3:[address]-GUIDED ASPIRATION OF LUMBAR PARASPINAL FLUID COLLECTION DATE: 12/13/2012. HISTORY: Postoperative fluid collection in the paraspinal region after lumbar decompression. PROCEDURE: After informed consent was obtained, the patient's low back was prepped and draped in usual sterile fashion. CT scanning through the lower lumbar region was performed demonstrating the surgical site at the L2-L3 level and the postsurgical fluid collection. A 3.5 inch 22-gauge spinal needle was placed into the collection and a small amount (approximately 4 mL) of bloody fluid was aspirated. This was sent to the lab for analysis. Patient tolerated the procedure well and there were no immediate complications. Procedure Note Ramón Kohler MD - 12/13/2012 CT-GUIDED ASPIRATION OF LUMBAR PARASPINAL FLUID COLLECTION DATE: 12/13/2012. HISTORY: Postoperative fluid collection in the paraspinal region after lumbar decompression. PROCEDURE: After informed consent was obtained, the patient's low back was prepped and draped in usual sterile fashion. CT scanning through the lower lumbar region was performed demonstrating the surgical site at the L2-L3 level and the postsurgical fluid collection. A 3.5 inch 22-gauge spinal needle was placed into the collection and a small amount (approximately 4 mL) of bloody fluid was aspirated. This was sent to the lab for analysis. Patient tolerated the procedure well and there were no immediate complications. IMPRESSION Successful CT-guided lumbar paraspinal fluid collection aspiration, as described above. Jim Heard MD CT ORDERABLES * CULTURE FLUID+GRAM STAIN (12/13/2012 1:45 PM CDT) Culture Growth from broth only Staphylococcus species (Coagulase Negative) 12/18/2012 7:31 AM CDT [facility] Gram Stain Moderate White blood cells 12/18/2012 7:31 AM CDT [facility] Gram Stain No organisms seen 013 7:31 AM CDT [facility] Fluid specimen (specimen) BODY FLUID SPECIMEN / Unknown 12/13/2012 1:45 PM CDT 12/13/2012 2:16 PM CDT Narrative Organism Antibiotic Method Susceptibility Staphylococcus species (coagulase-negative) Ciprofloxacin DWAIN <=0.5: Susceptible Staphylococcus species (coagulase-negative) Clindamycin DWAIN <=0.25: Susceptible Staphylococcus species (coagulase-negative) Erythromycin DWAIN <=0.25: Susceptible Staphylococcus species (coagulase-negative) Gentamicin DWAIN <=0.5: Susceptible Staphylococcus species (coagulase-negative) Inducible Clindamycin Resistance DWAIN NEG: - Staphylococcus species (coagulase-negative) Levofloxacin DWAIN 0.5: Susceptible Staphylococcus species (coagulase-negative) Linezolid DWAIN 1: Susceptible Staphylococcus species (coagulase-negative) Oxacillin DWAIN 2: Susceptible Staphylococcus species (coagulase-negative) Tetracycline DWAIN <=1: Susceptible Staphylococcus species (coagulase-negative) Trimethoprim-sulfamethoxazo le DWAIN <=10: Susceptible Staphylococcus species (coagulase-negative) Vancomycin DWAIN <=0.5: Susceptible Jim Heard MD LAB - MICROBIOLOGY O RDERABLES [facility] [address] [place] [address], [facility] * ECHOCARDIOGRAM 2D WITH DOPPLER (12/10/2012 3:00 PM CDT) 12/10/2012 3:00 PM CDT Narrative [facility] - 12/10/2012 5:41 PM CDT ECHOCARDIOGRAPHY REPORT [address] [address] Transthoracic Echocardiogram 2D, M-mode, Doppler, and Color Doppler Date of Service: 12/10/2012 Patient: ALEXY LOUIS : 1940 Age: 72 years Gender: Male Race: Height: 67 in Weight: 170 lb BSA: 1.89 m Diagnoses: 790.7 - BACTEREMIA Reading Physician: Trace Harris MD Referring Physician: Jim Heard MD LITIGATION SPECIALIST: Raul Man Cardiology Group: [facility] Summary: - Procedure information: - [facility] room 754 @ 1500 - Left ventricle: - Systolic function was normal. Ejection fraction was estimated in the range of 55 % to 65 %. - There were no regional wall motion abnormalities. - Aortic valve: - There was mild regurgitation. - Tricuspid valve: - There was mild regurgitation. - Pulmonary arteries: - Systolic pressure was mildly increased. Estimated peak pressure was in the range of 40 mmHg to 45 mmHg. Procedure: The study was performed in the [facility]. This was a routine study. [facility] room 754 @ 1500 The transthoracic approach was used. The study included complete 2D imaging, M-mode, complete spectral Doppler, and color Doppler. Left ventricle: Size was normal. Systolic function was normal. Ejection fraction was estimated in the range of 55 % to 65 %. There were no regional wall motion abnormalities. Wall thickness was normal. Aortic valve: The valve was trileaflet. Leaflets exhibited normal thickness and normal cuspal separation. Doppler: Transaortic velocity was within the normal range. There was no stenosis. There was mild regurgitation. Mitral valve: Valve structure was normal. There was normal leaflet separation. Doppler: The transmitral velocity was within the normal range. There was no evidence for stenosis. There was trivial regurgitation. Left atrium: Size was at the upper limits of normal. Right atrium: Size was normal. Right ventricle: The size was normal. Systolic function was normal. Tricuspid valve: Doppler: There was mild regurgitation. Pulmonary artery: Doppler: Systolic pressure was mildly increased. Estimated peak pressure was in the range of 40 mmHg to 45 mmHg. Pericardium: There was no pericardial effusion. System measurement tables CW PV Vmax: 1.2 m/s AR PHT: 370.1 ms AV Vmax: 1.6 m/s AV maxP.3 mmHg PV maxP.7 mmHg TR Vmax: 2.8 m/s TR maxP.2 mmHg MM LA Diam: 3.9 cm AV Cusp: 1.9 cm Ao Diam: 3.1 cm IVSd: 1.4 cm LVIDd: 6.2 cm LVIDs: 4.4 cm LVPWd: 0.9 cm PW LVOT Vmax: 1.3 m/s Lateral E/e': 5.4 MV A Fabian: 1.1 m/s MV Dec Loup: 4 m/s2 MV E Fabian: 0.8 m/s Prepared and signed by Trace Harris MD Signed 12/10/2012 17:40:38 Procedure Note Trace Harris MD - 12/10/2012 ECHOCARDIOGRAPHY REPORT [address] [address] Transthoracic Echocardiogram 2D, M-mode, Doppler, and Color Doppler Date of Service: 12/10/2012 [id number] 1940 Age: 72 years Gender: Male Race: Height: 67 in Weight: 170 lb BSA: 1.89 m Diagnoses: 790.7 - BACTEREMIA Reading Physician: Trace Harris MD Referring Physician: Jim Heard MD LITIGATION SPECIALIST: Raul Man Cardiology Group: [facility] Summary: - Procedure information: - [facility] room 754 @ 1500 - Left ventricle: - Systolic function was normal. Ejection fraction was estimated in the range of 55 % to 65 %. - There were no regional wall motion abnormalities. - Aortic valve: - There was mild regurgitation. - Tricuspid valve: - There was mild regurgitation. - Pulmonary arteries: - Systolic pressure was mildly increased. Estimated peak pressure was in the range of 40 mmHg to 45 mmHg. Procedure: The study was performed in the [facility]. This was a routine study. [facility] room 754 @ 1500 The transthoracic approach was used. The study included complete 2D imaging, M-mode, complete spectral Doppler, and color Doppler. Left ventricle: Size was normal. Systolic function was normal. Ejection fraction was estimated in the range of 55 % to 65 %. There were no regional wall motion abnormalities. Wall thickness was normal. Aortic valve: The valve was trileaflet. Leaflets exhibited normal thickness and normal cuspal separation. Doppler: Transaortic velocity was within the normal range. There was no stenosis. There was mild regurgitation. Mitral valve: Valve structure was normal. There was normal leaflet separation. Doppler: The transmitral velocity was within the normal range. There was no evidence for stenosis. There was trivial regurgitation. Left atrium: Size was at the upper limits of normal. Right atrium: Size was normal. Right ventricle: The size was normal. Systolic function was normal. Tricuspid valve: Doppler: There was mild regurgitation. Pulmonary artery: Doppler: Systolic pressure was mildly increased. Estimated peak pressure was in the range of 40 mmHg to 45 mmHg. Pericardium: There was no pericardial effusion. System measurement tables CW PV Vmax: 1.2 m/s AR PHT: 370.1 ms AV Vmax: 1.6 m/s AV maxP.3 mmHg PV maxP.7 mmHg TR Vmax: 2.8 m/s TR maxP.2 mmHg MM LA Diam: 3.9 cm AV Cusp: 1.9 cm Ao Diam: 3.1 cm IVSd: 1.4 cm LVIDd: 6.2 cm LVIDs: 4.4 cm LVPWd: 0.9 cm PW LVOT Vmax: 1.3 m/s Lateral E/e': 5.4 MV A Fabian: 1.1 m/s MV Dec Loup: 4 m/s2 MV E Fabian: 0.8 m/s Prepared and signed by Trace Harris MD Signed 12/10/2012 17:40:38 Jim Heard MD ECHO ORDERABLES [facility] * (ABNORMAL) PT PTT PANEL (12/09/2012 5:34 AM CDT) PT 11.3(H) 9.4 - 11.2 sec 12/09/2012 6:12 AM CDT [facility] INR 1.08 0.9 - 1.1 12/09/2012 6:12 AM CDT [facility] PTT 36.6(H) 24.0 - 32.0 sec 12/09/2012 6:12 AM CDT [facility] Blood specimen (specimen) BLOOD SPECIMEN / Unknown 12/09/2012 5:34 AM CDT 12/09/2012 5:44 AM CDT Narrative [facility] - 12/09/2012 6:12 AM CDT Conventional Anticoagulant Therapy INR Reference Ranges: 2.0-3.0 Intensive Anticoagulant Therapy INR Reference Ranges: 2.5-3.5 Sarah Mckenzie MD LAB - COAGULATION OR DERABLES Performing Organization Address [facility] Co de Phone Number [facility] [address] [place] [address] * C-REACTIVE PROTEIN SENSITIVE (12/08/2012 11:33 AM CDT) Pathologist [facility] C-Reactive Protein High Sensitivity >19 mg/L 12/08/2012 2:33 PM CDT [facility] Blood specimen (specimen) BLOOD SPECIMEN / Unknown 12/08/2012 11:33 AM CDT 12/08/2012 11:37 AM CDT [facility] - 12/08/2012 2:33 PM CDT C-REACTIVE PROTEIN SENSITIVE INTERPRETATION Patients with higher hs-CRP concentrations are more likely to develop stroke, myocardial infarction, and severe peripheral vascular disease. CRP is a nonspecific marker of inflammation and a variety of conditions other than atherosclerosis may cause elevated concentrations. If the first result is greater than 3.0 mg/L, recommend repeating test at least 2 weeks later in a metabolically stable state, free of infection or acute illness. The lower of the two results should be used to determine the patient's risk. C-REACTIVE PROTEIN SENSITIVE results are used to assign risk as follows: Less than 1.0 mg/L Low risk 1.0-3.0 mg/L Average risk 3.1-9.9 mg/L High risk Greater than 9.9 mg/L Very high risk (Clin Chem 2009; 55:378-84) Kingston Bazan DO LAB - CHEMISTRY OR DERABLES Performing Organization Address City/[facility]/ZIP Co de Phone Number [facility] [address] [place] [address] * CKMB (12/08/2012 11:33 AM CDT) CK-MB <0.5 0.0 - 5.0 ng/mL 12/08/2012 12:00 PM CDT [facility] Blood specimen (specimen) BLOOD SPECIMEN / Unknown 12/08/2012 11:33 AM CDT 12/08/2012 11:37 AM CDT Kingston Mcconnell Hortensia DO LAB - CHEMISTRY OR DERABLES Performing Organization Address City/[facility] Co de Phone Number [facility] [address] [place] [address] * (ABNORMAL) HEPATIC FUNCTION PANEL (12/08/2012 10:24 AM CDT) Alkaline Phosphatase 63 38 - 126 U/L 12/08/2012 10:52 AM CDT [facility] ALT 20 12 - 78 U/L 12/08/2012 10:52 AM CDT [facility] AST 10 5 - 40 U/L 12/08/2012 10:52 AM CDT [facility] Protein Total 8.0 6.4 - 8.2 gm/dL 12/08/2012 10:52 AM CDT [facility] Albumin 3.1(L) 3.4 - 5.0 gm/dL 12/08/2012 10:52 AM CDT [facility] Bilirubin Total 1.4(H) 0.2 - 1.0 mg/dL 12/08/2012 10:52 AM CDT [facility] Bilirubin Direct 0.3 0 - 0.3 mg/dL 12/08/2012 10:52 AM CDT [facility] Blood specimen (specimen) BLOOD SPECIMEN / Unknown 12/08/2012 10:24 AM CDT 12/08/2012 10:32 AM CDT Kingston Bazan DO LAB - CHEMISTRY OR DERABLES Performing Organization Address City/[facility]/ZIP Co de Phone Number [facility] [address] [place] [address] * XR LUMBAR SPINE 2 OR 3 VW (12/08/2012 9:56 AM CDT) Anatomical Region Laterality Modality Spine Radiographic Janet ging 12/08/2012 10:4 7 AM CDT Impressions 12/08/2012 10:47 AM CDT Negative for fracture at this time. Please see above. Narrative 12/08/2012 10:47 AM CDT Examination: Lumbar spine three views Indication: Pain in back and legs x2 weeks. Prior surgery. Generalized body aches. Poor appetite. Low back pain. Findings: Three views of the lumbar spine are available. No compression fracture can be seen within the limitations of the study. Vacuum disc signs with disc space narrowing is noted at L5-S1 and to a lesser extent at L4-L5. Large osteophytes are visible anteriorly. The patient has had extensive surgery with laminectomies at multiple levels. Mild scoliosis is noted convex to the left.. If the patient's symptoms persist or worsen, consideration may be given to an alternative imaging modality such as an MRI or a bone scan to check for an occult process. Procedure Note Davion Heath MD - 12/08/2012 Examination: Lumbar spine three views Indication: Pain in back and legs x2 weeks. Prior surgery. Generalized body aches. Poor appetite. Low back pain. Findings: Three views of the lumbar spine are available. No compression fracture can be seen within the limitations of the study. Vacuum disc signs with disc space narrowing is noted at L5-S1 and to a lesser extent at L4-L5. Large osteophytes are visible anteriorly. The patient has had extensive surgery with laminectomies at multiple levels. Mild scoliosis is noted convex to the left.. If the patient's symptoms persist or worsen, consideration may be given to an alternative imaging modality such as an MRI or a bone scan to check for an occult process. IMPRESSION Negative for fracture at this time. Please see above. Kingston Bazan DO DIAGNOSTIC IMAGING ORDERABLES * HGB HCT PANEL (11/06/2012 4:02 AM CDT) Only the most recent of3 resultswithin the time period is included. Hemoglobin 13.0 12.0 - 17.6 g/dL 11/06/2012 4:25 AM CDT [facility] Hematocrit 37.0 35.2 - 51.7 % 11/06/2012 4:25 AM CDT [facility] Blood specimen (specimen) BLOOD SPECIMEN / Unknown 11/06/2012 4:02 AM CDT 11/06/2012 4:09 AM CDT Alan Hoyos MD LAB - HEMATOLOGY ORD ERABLES Performing Organization Address [facility]/ZIP Co de Phone Number [facility] [address] [place] [address] * CULTURE MSSA/MRSA (10/25/2012 9:07 AM CDT) Culture Negative for MRSA/MSSA 10/26/2012 1:24 PM CDT [facility] Miscellaneous samples (specimen) SPECIMEN FROM NASAL FOSSAE / Unknown 10/25/2012 9:07 AM CDT 10/25/2012 9:32 AM CDT Alan Hoyos MD LAB - MICROBIOLOGY O RDERABLES Performing Organization Address [facility] Co de Phone Number [facility] [address] [place] [address], [facility] * TYPE + SCREEN PANEL (10/25/2012 9:07 AM CDT) Only the most recent of2 resultswithin the time period is included. ABO A 10/25/2012 10:35 AM CDT [facility] Rh Type Positive 10/25/2012 10:35 AM CDT [facility] Comment:Historical blood typ e on record. Antibody Screen Negative 10/25/2012 10:35 AM CDT [facility] Miscellaneous samples (specimen) BLOOD SPECIMEN / Unknown 10/25/2012 9:07 AM CDT 10/25/2012 9:32 AM CDT Alan Hoyos MD LAB - BLOOD BANK ORD ERABLES Performing Organization Address [facility] Co de Phone Number [facility] * EKG 12-LEAD (06/25/2012 1:32 PM DISTILLERY MANAGER) Ventricular Rate 59 BPM [facility] Atrial Rate 59 BPM [facility] P-R Interval 148 ms [facility] QRS Duration ms 88 ms [facility] Q-T Interval ms 404 ms [facility] QTC Calculation (Bezet) 399 ms [facility] Calculated P [place] 48 degrees [facility] Calculated R [place] 10 degrees [facility] Calculated T [place] 32 degrees [facility] Interpretation EKG Sinus bradycardia Otherwise normal ECG No previous ECGs available Confirmed by MD ANDREAS, TONY ([id number]) on 06/25/2012 6:37:32 PM [facility] 06/25/2012 1:32 PM DISTILLERY MANAGER 06/25/2012 6:37 PM DISTILLERY MANAGER Narrative [facility] - 06/25/2012 6:38 PM DISTILLERY MANAGER Procedure Note Document, Scanned - 06/25/2012 4:24 PM CST Transcriptions Document, Scanned - 06/25/2012 6:38 PM CST Alan Hoyos MD ECG ORDERABLES [facility] * IMAGING/RADIOLOGY/XRAY RESULTS ORDER (06/27/2011) Anatomical Region Laterality Modality Other Provider Unknown IMAGING Care Teams Biscuit Machine Operator Relationship Specialty Start Date End Date Nikolas Dockery MD [address] [place] [address] PCP - General Family Medicine 05/17/12
--- OUTSIDE RECORDS SUMMARY | 2024-08-07 00:14 | XMS_ITS | Referral Summary ---
Author Organization [facility] Address [address] [place] [address] Care Team Providers Care Burglar Alarm Installer Name Role Phone Nikolas Dockery MD Primary Care Provider [phone] Source Comments [facility],non-owned Affiliates and Associated Physician Practices is amultiple site organization consisting of ambulatory clinics and hospital sitesin [place], [place], [place] and [place]. This disclosure is being madepursuant to the Care Everywhere program and may not contain all information available regarding this patient. Last updated 18.[facility] Allergies No known active allergies Medications * Be aware that medications may not be up to date on this document. Alwaysverify current medications with the patient. Medication Sig Dispensed Refills Start Date End Date Status docusate sodium (COLACE) 100 MG capsule Take 1 Cap by mouth 2 times daily. 12/17/2012 Active polyethylene glycol 3350 (MIRALAX) packet Take 17 g by mouth once daily as needed for Constipation. 12/17/2012 Active gabapentin (NEURONTIN) 300 MG capsule Take 1 Cap by mouth 3 times daily. 90 Cap 3 02/08/2013 Active cephALEXin (KEFLEX) 500 MG capsule Take 1 Cap by mouth 4 times daily. Active oxyCODONE CR 12hr (OXYCONTIN) 80 MG tablet Take 1 Tab by mouth every 12 hours. 60 Tab 0 04/23/2013 Active tiZANidine (ZANAFLEX) 4 MG tablet Take 1-2 Tabs by mouth every 6 hours as needed for Muscle Spasms. 90 Tab 2 04/23/2013 Active oxycodone-acetaminophe n (PERCOCET) 10-325 MG tablet Take 1 Tab by mouth every 4 hours as needed. 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 Adv Directive/Living Will/POA 02/19/2013 1:13 PM LIVING WILL * FULL RESUSCITATION (Latest Code Status on File) Date Activated Date Inactivated Comments 01/10/2013 8:54 PM 01/17/2013 3:10 PM * FULL RESUSCITATION Date Activated Date Inactivated Comments 12/08/2012 5:24 PM 12/17/2012 6:07 PM * FULL RESUSCITATION Date Activated Date Inactivated Comments 11/05/2012 3:14 PM 11/06/2012 10:59 AM * FULL RESUSCITATION Date Activated Date Inactivated Comments 07/02/2012 8:47 PM 07/03/2012 11:11 AM Care Teams Burglar Alarm Installer Relationship Specialty Start Date End Date Nikolas Dockery MD [address] [place] [address] PCP - General Family Medicine 05/17/12
--- OUTSIDE RECORDS SUMMARY | 2024-08-07 00:14 | XMS_ITS | Clinical Summary ---
Author Organization [facility] [employer] Address [address] [place] [address] Care Team Providers Care Typists Supervisor Name Role Phone Nikolas Dockery MD Primary Care Provider [phone] Source Comments [facility],non-owned Affiliates and Associated Physician Practices is amultiple site organization consisting of ambulatory clinics and hospital sitesin [place], [place], [place] and [place]. This disclosure is being madepursuant to the Care Everywhere program and may not contain all information available regarding this patient. Last updated 18.[facility] [employer] Allergies No known active allergies Medications * [...] joint, lower leg 05/17/2012 Foot pain 05/17/2012 Family History Medical History Relation Name Comments Cancer Father CAD (Coronary Artery Disease) Mother Cancer Mother Heart Failure Mother Relation Name Status Comments Father Mother Social History Tobacco Use Types Packs/Day Years [...] 04/15/2013 9:10 AM CDT Plan of Treatment Health Maintenance Due Date Last Done Comments DTAP/TDAP/TD VACCINES (1 - Tdap) 1959 PNEUMOCOCCAL VACCINE 50+ (1 of 1 - PCV) 01/30/1988 ZOSTER VACCINE (1 of 2) 01/30/1988 Respiratory Syncytial Virus (RSV) Vaccine Pt: or over 60 yrs (1 - 1-dose 75+ series) 2013 COVID-19 VACCINE ( - 2023-2 5 season) 2024 INFLUENZA VACCINE (#1) 2024 DEPRESSION SCREENING 06/19/2024 MEDICARE AWV CALENDAR YEAR 2024 HEPATITIS B VACCINE Aged Out No longe r eligible based on patient's age to complete this topic HIB VACCINE Aged Out No longer eligi ble based on patient's age to complete this topic HPV VACCINE Aged Out No longer eligi ble based on patient's age to complete this topic MENINGOCOCCAL (Group B) VACCINE Aged Out No longer eligible based on patient's age to complete this topic MENINGOCOCCAL VACCINE Aged Out No julia charlene eligible based on patient's age to complete this topic Advance Directives Documents on File Type Date Recorded 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
[2024-08-07 08:29] VITALS: BP 148/58; PULSE 82; RESP 18; TEMP 37.1; O2SAT 97; BMI 25.3
[2024-08-07] MEDS: LACTATED RINGERS 1,000 ML 150 ML IV CONT (08:40)
--- NOTE | 2024-08-07 09:12 | WPDANESEPPF ---
Anes - Initial Pre Proc Eval Procedure: Operation Date: 08/07/24 10:00 Proposed Procedures p Colonoscopy - Erik Gonzalez MD Date/Time: 08/07/24 09:12 Surgeon: Erik Gonzalez MD Pre Op Diagnosis: constipation, full incontinence of feces Patient Data Age: 84 Gender: M Height: 1.7 m Weight: 73.4 kg Last Vital Signs Temp 98.8 F 08/07/24 08:29 Pulse 82 08/07/24 08:29 Resp 18 08/07/24 08:29 BP 148/58 H 08/07/24 08:29 Pulse Ox 97 08/07/24 08:29 O2 Del Method Room Air 08/07/24 08:29 Allergies Allergy/AdvReac Type Severity Reaction Status Date / Time No Known Allergies Allergy Mild Verified 08/07/24 08:27 Home Medications ?Medication ?Instructions ?Recorded ?Confirmed ?Type aspirin 81 mg tablet,delayed 81 mg PO DAILY 08/23/19 08/07/24 History release (Adult Low Dose Aspirin) lisinopril 5 mg tablet 5 mg PO DAILY #90 tabs 04/16/24 08/07/24 Rx Patient hx anesthesia problems: none Family hx anesthesia problems: none Results Review: All pre-operative results and documents have been reviewed as part of the pre-operative evaluation. COUNTS INCLUDE 234 BEDS AT THE [facility] Past Medical History Medical History Prostate cancer Chronic constipation BPH w urinary obs/LUTS Wellness examination Mixed hyperlipidemia IFG (impaired fasting glucose) Essential hypertension Surgical History Surgical History Hx of transurethral resection of prostate History of lumbar surgery w/ post-op complicating abscess Family History Family History Mother Family history of malignant neoplasm of stomach Family history of heart disease in male family member before age 55 Father Family history of lung cancer Social History Social History Smoking status: Never smoker Second hand tobacco smoke exposure: No Alcohol intake: current Drinks per week: 4 Substance use: never Substance use type: does not use Do You Feel Safe in your Home?: Yes Lack of Transportation: No Lack of Food: Never True Current Housing: I Have Housing Concerned About Future Housing: No Difficulty Paying Gas/Electric Bills: No Difficulty Paying for Meds: No Currently Unemployed: No Education: Trade/Vocational Certificate Difficulty w/ Childcare or Family Care: No Living arrangements: alone Occupation/Education: retired Gender identity (if verbalized by the patient): Male Sexual Orientation (if Verbalized by the Patient): Straight or Heterosexual Spiritual care concerns: No Anes - Eval Final PreProcedure Day of Procedure 08/07/24 09:12 Patient weight: overweight Lungs: normal air movement Airway: Mallampati scale class II Neurological: alert and oriented Last oral intake: >/= 8 hours ASA classification: III Emergent: no Anesthetic plan: proceed Anesthesia type and monitoring: general GIVS and standard monitoring Results Review: All pre-operative results and documents have been reviewed as part of the pre-operative evaluation. HTN, spinal cord stim in place (pt to turn off at this time for procedure). Informed Consent: The patient's anesthetic plan and its attendant risks and benefits were discussed with the patient/family/POA. Questions were solicited and answers provided to the satisfaction of the patient/family/POA.
--- NOTE | 2024-08-07 09:24 | PM.IMHP ---
H&P: HPI History of Present Illness Date/Time: 08/07/24 09:24 Chief Complaint: This patient has been experiencing intermittent diarrhea alternated with periods of constipation for the past year. Before this, he states he has been having regular bowel movements. There is no bleeding, abdominal pain or unintentional weight loss. Review of Systems Review of Systems: All systems reviewed & are unremarkable except as noted in HPI and below PMFSH Past Medical History Medical History Prostate cancer Chronic constipation BPH w urinary obs/LUTS Wellness examination Mixed hyperlipidemia IFG (impaired fasting glucose) Essential hypertension Surgical History Surgical History Hx of transurethral resection of prostate History of lumbar surgery w/ post-op complicating abscess Family History Family History Mother Family history of malignant neoplasm of stomach Family history of heart disease in male family member before age 55 Father Family history of lung cancer Social History Social History Smoking status: Never smoker Second hand tobacco smoke exposure: No Alcohol intake: current Drinks per week: 4 Substance use: never Substance use type: does not use Do You Feel Safe in your Home?: Yes Lack of Transportation: No Lack of Food: Never True Current Housing: I Have Housing Concerned About Future Housing: No Difficulty Paying Gas/Electric Bills: No Difficulty Paying for Meds: No Currently Unemployed: No Education: Trade/Vocational Certificate Difficulty w/ Childcare or Family Care: No Living arrangements: alone Occupation/Education: retired Gender identity (if verbalized by the patient): Male Sexual Orientation (if Verbalized by the Patient): Straight or Heterosexual Spiritual care concerns: No Meds Home Medications and Allergies Home Medications ?Medication ?Instructions ?Recorded ?Confirmed ?Type aspirin 81 mg tablet,delayed 81 mg PO DAILY 08/23/19 08/07/24 History release (Adult Low Dose Aspirin) lisinopril 5 mg tablet 5 mg PO DAILY #90 tabs 04/16/24 08/07/24 Rx Allergies Allergy/AdvReac Type Severity Reaction Status Date / Time No Known Allergies Allergy Mild Verified 08/07/24 08:27 Vital Signs Vital Signs - 24 hr 08/07/24 08:29 Temperature 98.8 F Pulse Rate 82 Respiratory Rate 18 Blood Pressure 148/58 H Pulse Oximetry 97 Oxygen Delivery Room Air Exam Const: General: cooperative and healthy appearing Resp: Effort & Inspection: normal respiratory effort and able to speak in complete sentences Auscultation: clear to auscultation bilaterally Cardio: Rate: regular rate Rhythm: regular rhythm GI: Inspection: normal to inspection GI Palp: No No hepatosplenomegaly present Auscultation: normal bowel sounds Rectal Exam: deferred Skin: General skin exam: normal color Psych: Appearance: grossly normal Mental Status: mental status grossly normal Assessment and Plan Assessment and plan (1) Fecal incontinence: Qualifiers: Fecal incontinence type: incomplete defecation Qualified Code(s): R15.0 - Incomplete defecation Code(s): R15.9 - Full incontinence of feces Status: Acute Assessment and Plan: Patient is deemed a good candidate for colonoscopy. Will obtain random biopsies of the colon to rule out microscopic colitis.
[2024-08-07] MEDS: SIMETHICONE ORAL SUSPENSION 20 MG/0.3 ML 30 ML BOTTLE 0.6 ML IRRIGATION (09:42)
[2024-08-07 09:58] VITALS: BP 115/67; PULSE 69; RESP 20; O2SAT 97
[2024-08-07 10:08] VITALS: BP 127/70; PULSE 64; RESP 17; O2SAT 96
[2024-08-07 10:18] VITALS: BP 112/72; PULSE 62; RESP 17; O2SAT 98
== END 2024-08-07 10:35 | disposition home or self-care (01) ==
PROVIDERS: PCP Family Medicine; Referring Provider Nurse Practitioner Family; Visit Provider Internal Medicine Gastroenterology
PROC: 0DJD8ZZ Inspection of Lower Intestinal Tract, Via Natural or Artificial Opening Endoscopic (ICD-10-PCS; CPT 45378; principal; 2024-08-07 10:00)
DX: R19.7 Diarrhea, unspecified (principal); E78.2 Mixed hyperlipidemia; I10 Essential (primary) hypertension; N40.1 Benign prostatic hyperplasia with lower urinary tract symptoms; K59.09 Other constipation; Z79.82 Long term (current) use of aspirin; Z98.890 Other specified postprocedural states; Z98.1 Arthrodesis status; Z85.46 Personal history of malignant neoplasm of prostate; Z80.0 Family history of malignant neoplasm of digestive organs; Z80.1 Family history of malignant neoplasm of trachea, bronchus and lung; Z82.49 Family history of ischemic heart disease and other diseases of the circulatory system
CPT/HCPCS: 45380; 88305; J2704; J7120

== ENCOUNTER 2024-09-03 14:11 | Outpatient (CLI) | payer MEDICARE, SELFPAY ==
--- NOTE | ~2024-09-03 | XR_ITS ---
XR abdomen/kub 1V Ordering provider: Alicia Turner APRN History: . change in bowel habits . Comparison: None. FINDINGS: BOWEL: Nonobstructive bowel gas pattern. ORGANOMEGALY: None. SIGNIFICANT PATHOLOGIC CALCIFICATIONS: None. OTHER: No free air is seen under the diaphragm. Levoscoliosis. Degenerative changes of the spine. Brett ateral hip osteoarthritic changes. Postoperative changes at the level of L4-L5. Bilateral sacroiliiti s with fusion. Spinal stimulator is seen. IMPRESSION: NO ACUTE ABDOMINAL FINDINGS. Reviewed, dictated and finalized at location A.
--- OUTSIDE RECORDS SUMMARY | 2024-09-03 16:00 | XMS_ITS | Clinical Summary ---
Author Organization [facility] Address [address] [place] [address] Care Team Providers Care Pattern Checker Name Role Phone Nikolas Dockery MD Primary Care Provider [phone] Source Comments [facility],non-owned Affiliates and Associated Physician Practices is amultiple site organization consisting of ambulatory clinics and hospital sitesin [place] and [place]. This disclosure is being madepursuant to the Care Everywhere program and may not contain all information available regarding this patient. 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
== END 2024-09-03 14:12 | disposition home or self-care (01) ==
LOC: ANHIMG 14:15
PROVIDERS: PCP Family Medicine; Visit Provider Nurse Practitioner Family
DX: K59.09 Other constipation (principal); R19.4 Change in bowel habit; R19.7 Diarrhea, unspecified
CPT/HCPCS: 74018

== ENCOUNTER 2024-09-04 11:09 | Outpatient (CLI) | payer MEDICARE, SELFPAY ==
--- OUTSIDE RECORDS SUMMARY | 2024-09-04 13:00 | XMS_ITS | Clinical Summary ---
Author Organization [facility] Address [address] [facility] [place] [address] Care Team Providers Care Family Preservation Caseworker Name Role Phone Nikolas Dockery MD Primary Care Provider [phone] Source Comments [facility],non-owned Affiliates and Associated Physician Practices is amultiple site organization consisting of ambulatory clinics and hospital sitesin [place], [place], [place] and [place]. This disclosure is being madepursuant to the Care Everywhere program and may not contain all information available regarding this patient. Last updated 18.[facility] Allergies No known active allergies Medications * [...] Documents on File Type Date Recorded Patient Delivery Consultant Expl anation Adv Directive/Living Will/POA 02/19/2013 1:13 [...] 8:47 PM 07/03/2012 11:11 AM Care Teams Family Preservation Caseworker Relationship Specialty Start Date End Date Nikolas Dockery MD [address] [place] [address] PCP - General Family Medicine 05/17/12
[2024-09-07 10:23] LABS: Norovirus RNA PCR, Stool DETECTED
== END 2024-09-04 11:10 | disposition home or self-care (01) ==
LOC: ANHLAB 11:10
PROVIDERS: PCP Family Medicine; Visit Provider Nurse Practitioner Family
DX: R15.0 Incomplete defecation (principal); R19.7 Diarrhea, unspecified
CPT/HCPCS: 83993; 87045; 87425; 87427; 87449; 87798

== ENCOUNTER 2024-09-10 14:05 | Outpatient (CLI) | payer MEDICARE, SELFPAY ==
--- NOTE | ~2024-09-10 | XR_ITS ---
XR_[id number] 09/10/2024 14:28 Indication: Cervicalgia Procedure: 5 views cervical spine Comparison: No prior studies for comparison. Findings: There is disc narrowing at all cervical spine levels. There is fusion at C4-5. There is mul tilevel facet hypertrophy. Lung apices are unremarkable. Odontoid process is within normal limits. No acute fracture or traumatic malalignment. There is degenerative anterolisthesis at C2-3 measuring 1 mm. No prevertebral soft tissue swelling. Impression: 1: Severe cervical spondylosis with fusion at C4-5. Reviewed, dictated and finalized at location A. Impression: 1: Severe cervical spondylosis with fusion at C4-5.
--- OUTSIDE RECORDS SUMMARY | 2024-09-10 16:31 | XMS_ITS | Clinical Summary ---
Author Organization [facility] Address [address] [facility] [place] [address] Care Team Providers Care Embossing Press Operator Apprentice Name Role Phone Nikolas Dockery MD Primary Care Provider [phone] Source Comments [facility],non-owned Affiliates and Associated Physician Practices is amultiple site organization consisting of ambulatory clinics and hospital sitesin [place], [place], [place] and [place]. This disclosure is being madepursuant to the Care Everywhere program and may not contain all information available regarding this patient. Last updated 18.[facility] Allergies No known active allergies Medications * [...] joint, lower leg 05/17/2012 Foot pain 05/17/2012 Encounters Date Type Department Care Team Description 09/06/2024 Telephone [facility] [address] [place] [address] Tahir Edward, RN Scheduling Outreach (Anorectal manometry scheduling attempt x1) from Last 3 Months Family History Medical History Relation Name Comments [...] Documents on File Type Date Recorded Patient Emissions Testing Technician Expl anation Adv Directive/Living Will/POA 02/19/2013 1:13 [...] 8:47 PM 07/03/2012 11:11 AM Care Teams Embossing Press Operator Apprentice Relationship Specialty Start Date End Date Nikolas Dockery MD [address] [place] [address] PCP - General Family Medicine 05/17/12
== END 2024-09-10 14:06 | disposition home or self-care (01) ==
PROVIDERS: PCP Family Medicine; Visit Provider Physician Assistant
DX: M47.812 Spondylosis without myelopathy or radiculopathy, cervical region (principal); Z98.1 Arthrodesis status
CPT/HCPCS: 72040

== ENCOUNTER 2024-10-23 08:50 | Outpatient (CLI) | payer MEDICARE, SELFPAY ==
--- NOTE | ~2024-10-23 | NM_ITS ---
EXAMINATION: NM miko stress w perfusion DATE: 10/23/2024 11:45 INDICATION: Chest pain TECHNIQUE: Rest images were obtained following intravenous administration of 9.7 mCi Tc99m tetrofosmi n (Myoview). The patient was infused intravenously with Lexiscan (Regadenoson). Then, 30.2 mCi Tc99m tetrofosmin (Myoview) was administered intravenously, and stress images were obtained. Data was recon structed into short axis and horizontal and vertical long axis SPECT images. Gated SPECT images were also obtained. COMPARISON: None. FINDINGS: There is no definite reversible or fixed perfusion abnormality to suggest ischemia or infar ction. There is normal left ventricular chamber size, wall motion and ejection fraction. Left ventr icular ejection fraction measures 55%. IMPRESSION: 1. Normal myocardial perfusion at rest and during stress. 2. Left ventricular ejection fraction measuring 55%. Reviewed, dictated and finalized at location A.
--- NOTE | 2024-10-23 08:53 | EST_ITS ---
Patient Info Name: Les Louis Age: 84 years : 1940 Gender: Male Ht: 67 in Wt: 161 lbs BSA: 1.87 m2 HR: 58 bpm BP: 119 / 61 mmHg Exam Date: 10/23/2024 10:15 AM Exam Location: Echo Lab Patient Status: Outpatient Admit Date: 10/23/2024 Staff Ordering Physician: Nikolas Dockery MD Attending Provider: Nikolas Dockery MD Exercise Technologist: Isabela Lee [facility] Exercise Physician: Darrell Segal DO Exam Type: CA stress miko w NM Study Info A regadenoson stress test was performed. Summary 1. 1. Negative lexiscan stress test for ischemic ST changes by ECG criteria. 2. 2. Stable hemodynamics throughout the test. 3. 3. Nuclear scan to follow and will be reported separately. Please correlate with it. 4. 4. Patient informed of the above results. Protocol: Lexiscan Stress ECG Details Stage: REST Duration (min): 1 min : 7 sec HR (bpm): 58 SBP (mmHg): 119 DBP (mmHg): 61 Stage: REST Duration (min): 7 min : 59 sec HR (bpm): 60 SBP (mmHg): 119 DBP (mmHg): 61 Stage: STAGE 1 Duration (min): 1 min : 0 sec HR (bpm): 75 SBP (mmHg): 118 DBP (mmHg): 64 Stage: RECOVERY Duration (min): 1 min : 0 sec HR (bpm): 94 SBP (mmHg): 118 DBP (mmHg): 64 Stage: RECOVERY Duration (min): 2 min : 0 sec HR (bpm): 86 SBP (mmHg): 118 DBP (mmHg): 64 Stage: RECOVERY Duration (min): 3 min : 0 sec HR (bpm): 82 SBP (mmHg): 123 DBP (mmHg): 63 Stage: RECOVERY Duration (min): 3 min : 7 sec HR (bpm): 82 SBP (mmHg): 123 DBP (mmHg): 63 Rest HR: 60 bpm Peak HR: 98 bpm Rest Sys BP: 119 mmHg Peak Sys BP: 123 mmHg Max Pred HR: 134 bpm % Max Pred HR: 73 % Target HR: 114 bpm Max RPP: 12,054 bpm*mmHg Termination Reason: Completed protocol Cardiac Symptoms: None Total Time: 1 min : 0 sec Rest Armenta BP: 61 mmHg Peak Armenta BP: 63 mmHg Total Dose: 0.4 mg Resting ECG Sinus rhythm. Stress ECG No ST changes. Arrhythmias None. Report Signatures
--- OUTSIDE RECORDS SUMMARY | 2024-10-23 09:05 | XMS_ITS | Clinical Summary ---
Author Organization [facility] Address [address] [facility] [place] [address] Care Team Providers Care Rn Neonatal Name Role Phone Nikolas Dockery MD Primary Care Provider [phone] Source Comments [facility],non-owned Affiliates and Associated Physician Practices is amultiple site organization consisting of ambulatory clinics and hospital sitesin [place], [place], [place] and [place]. This disclosure is being madepursuant to the Care Everywhere program and may not contain all information available regarding this patient. Last updated 18.[facility] Allergies No known active allergies Medications * Be aware that medications may not be up to date on this document. Alwaysverify current medications with the patient. docusate sodium (COLACE) 100 MG capsule Take 1 Cap by mouth 2 times daily. 12/17/2012 Active polyethylene glycol 3350 (MIRALAX) packet Take 17 g by mouth once daily as needed for Constipatio n. 12/17/2012 Active gabapentin (NEURONTIN) 300 MG capsule [...] Muscle Spasms. 90 Tab 2 04/23/2013 Active oxycodone-acetam inophen (PERCOCET) 10-325 MG tablet Take 1 Tab by mouth every 4 hours as needed. 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 Member ID:Not on file Relation to Subscriber:Not on file Name:ALEXY LOUIS Subscriber ID:Not on file (Home) Address: [address] [place] [address] Payer ID:Not on file Group ID:Not on file Type:Self Pay Address: [facility] [place] [facility] MEDICARE ADV Advance Directives Documents on File Type Date Recorded Patient Biometric Fingerprinting Technician Expl anation Adv Directive/Living Will/POA 02/19/2013 [...] 8:47 PM 07/03/2012 11:11 AM Care Teams Rn Neonatal Relationship Specialty Start Date End Date Nikolas Dockery MD [address] [place] [address] PCP - General Family Medicine 05/17/12
== END 2024-10-23 08:51 | disposition home or self-care (01) ==
PROVIDERS: PCP Family Medicine; Visit Provider Family Medicine
DX: R07.9 Chest pain, unspecified (principal)
CPT/HCPCS: 78452; 93017; A9502; J2785

== ENCOUNTER 2025-04-22 10:36 | Outpatient (CLI) | payer MEDICARE, SELFPAY ==
[2025-04-22 11:08] LABS: Hematocrit 38.1 % (42.0-52.0); Hemoglobin 12.9 g/dL (14.0-18.0); Immature Granulocyte Percent A 1.5 % (0-0.5); Lymphocytes Absolute Auto 3.38 K/mm3 (0.9-3.2); Mean Corpuscular HGB Conc 33.9 g/dl (32-36); Mean Corpuscular Hemoglobin 31.7 pg (26-34); Mean Corpuscular Volume 93.6 fl (80-100); Nucleated Red Blood Cells Absolute Auto 0.000 K/mm3 (0.0-0.012); Nucleated Red Blood Cells Perc 0.0 % (0.0-0.2); Platelet Count Result 287 k/mm3 (150-375); Red Blood Count 4.07 M/mm3 (4.6-6.20); White Blood Count 11.7 K/mm3 (4.5-10.0)
[2025-04-22 11:34] LABS: Alanine Aminotransferase 23 U/L (6-50); Albumin Level 4.3 g/dL (3.5-5.1); Alkaline Phosphatase 62 U/L (38-126); Anion Gap 6 mmol/L (4-12); Aspartate Amino Transferase 44 U/L (17-59); Bilirubin,Total 3.8 mg/dL (0.2-1.3); Blood Urea Nitrogen 16 mg/dL (9-20); Calcium 9.1 mg/dL (8.4-10.2); Carbon Dioxide 26 mmol/L (22-30); Chloride 102 mmol/L (98-107); Estimated Glomerular Filt Rate > 60; Glucose 91 mg/dL (65-110); Potassium 5.0 mmol/L (3.4-5.0); Sodium 134 mmol/L (137-145); Total Protein 7.8 g/dL (6.3-8.2); Uric Acid 5.8 mg/dL (3.5-8.5)
== END 2025-04-22 10:37 | disposition home or self-care (01) ==
PROVIDERS: PCP Family Medicine; Visit Provider Family Medicine
DX: I10 Essential (primary) hypertension (principal); E79.0 Hyperuricemia without signs of inflammatory arthritis and tophaceous disease
CPT/HCPCS: 36415; 80053; 84550; 85025

== ENCOUNTER 2025-06-02 10:25 | Outpatient (CLI) | payer MEDICARE, SELFPAY ==
--- NOTE | ~2025-06-02 | XR_ITS ---
EXAMINATION: XR hip RT min 2V DATE: 06/02/2025 10:56 INDICATION: Pain TECHNIQUE: Right hip x-ray were obtained. COMPARISON: None. FINDINGS: No acute or aggressive bony process seen. Mild osteoarthritic appearing degenerative changes. IMPRESSION: 1. Mild osteoarthritic degenerative changes. For persisting hip pain refractory to conservative therapy, consider correlation with hip MRI for optimal sensitivity. Reviewed, dictated and finalized at location A. 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 Mild osteoarthritic degenerative changes. For persisting hip pain refractory to conservative therapy, consider correlation with hip MRI for optimal sensiti vity.
== END 2025-06-02 10:26 | disposition home or self-care (01) ==
PROVIDERS: PCP Family Medicine; Visit Provider Nurse Practitioner Family
DX: M16.11 Unilateral primary osteoarthritis, right hip (principal)
CPT/HCPCS: 73502